=== PATIENT | male | born 1965 | race Caucasian/White ===

== ENCOUNTER 2021-01-03 14:42 | Inpatient (IN) | payer MEDICAID ==
[~2021-01-03] VITALS: Ht 177.8 cm; Wt 88.6 kg
[2021-01-03 17:30] LABS: BASOPHILS % 0.9 % (0.0-2.0); EOSINOPHILS % 3.7 % (0.0-5.0); HEMATOCRIT. 25.6 % (42.0-52.0); HEMOGLOBIN. 8.9 g/dL (14.0-18.0); LYMPHOCYTES % 21.9 % (20.0-50.0); MEAN CORPUSCULAR VOLUME 83.1 fL (80.0-94.0); MEAN PLATELET VOLUME 8.3 fl (7.4-10.4); MONOCYTES % 5.8 % (2.0-8.0); NEUTROPHILS % 67.7 % (40.0-76.0); PLATELET 267 x1000/uL (130-400); RED BLOOD CELL COUNT 3.08 mill/uL (4.7-6.1); RED CELL DISTRIBUTION WIDTH 13.9 % (11.6-14.6)
[2021-01-03 17:35] LABS: CHLORIDE 115 mEq/L (98-107)
[2021-01-03 17:38] LABS: PARTIAL THROMBOPLASTIN TIME 29.8 sec (23.4-31.0); PROTHROMBIN TIME 10.7 sec (9.6-11.0)
[2021-01-03] MEDS ORDERED: AZITHROMYCIN 500 MG in DEXT 5% WATER 250 ML IV ONE (19:15)
[2021-01-03] MEDS ORDERED: CEFTRIAXONE 1 G PREMIX 50 ML IV ONE (19:15)
[2021-01-03] MEDS ORDERED: DEXAMETHASONE 10 MG/ML VIAL IV ONE (19:15)
[2021-01-03] MEDS ORDERED: ASPIRIN 81MG TABLET PO ONE (19:15)
[2021-01-03 20:56] LABS: CLARITY URINE CLEAR (CLEAR); COLOR URINE YELLOW (YELLOW); KETONES URINE NEGATIVE (NEGATIVE); LEUKOCYTE ESTERASE URINE NEGATIVE (NEGATIVE); NITRITE URINE NEGATIVE (NEGATIVE); OCCULT BLOOD URINE TRACE (NEGATIVE); PROTEIN URINE 4+ (NEGATIVE); SPECIFIC GRAVITY URINE 1.014 (1.005-1.030); UROBILINOGEN URINE 0.2 E.U./dL (0.2-1.0)
[2021-01-04] VITALS: BP 169/81
[2021-01-04] MEDS ORDERED: FURO80TA3 PO (01:11)
[2021-01-04] MEDS ORDERED: GLIP10TA10 PO (01:11)
[2021-01-04] MEDS ORDERED: METF-874 PO (01:11)
[2021-01-04] MEDS ORDERED: CLONIDINE 0.1MG TABLET PO PRN (02:45)
[2021-01-04] MEDS ORDERED: ACETAMINOPHEN 325MG TABLET PO PRN (02:45)
[2021-01-04] MEDS ORDERED: DEXTROSE 50% WATER 50ML SYRINGE IV PRN (02:45)
[2021-01-04] MEDS ORDERED: *PATIENT'S OWN MEDICATION STORAGE XX SCH (03:15)
[2021-01-04 04:00] VITALS: BP 141/74
[2021-01-04] MEDS ORDERED: BLOOD SUGAR DIAGNOSTIC STRIP TEST SCH (07:40)
[2021-01-04 08:00] VITALS: BP 163/76
[2021-01-04] MEDS ORDERED: INSULIN LISPRO 100 UNITS/ML SUBCUT SCH (08:10)
[2021-01-04] MEDS: ENOXAPARIN 30MG/0.3ML SYR SUBCUT SCH ×2 (08:31→20:58)
[2021-01-04] MEDS ORDERED: FUROSEMIDE 40MG/4ML VIAL IVP SCH (08:36)
[2021-01-04] MEDS ORDERED: ENOXAPARIN 30MG/0.3ML SYR SUBCUT SCH (09:00)
[2021-01-04 09:31] LABS: BASOPHILS % 0.3 % (0.0-2.0); HEMATOCRIT. 29.2 % (42.0-52.0); HEMOGLOBIN. 10.1 g/dL (14.0-18.0); LYMPHOCYTES % 12.2 % (20.0-50.0); MEAN CORPUSCULAR HEMOGLOBIN 29.2 pg (28.0-32.0); MEAN CORPUSCULAR VOLUME 84.4 fL (80.0-94.0); MEAN PLATELET VOLUME 8.1 fl (7.4-10.4); MONOCYTES % 1.9 % (2.0-8.0); NEUTROPHILS % 85.6 % (40.0-76.0); PLATELET 270 x1000/uL (130-400); RED BLOOD CELL COUNT 3.46 mill/uL (4.7-6.1)
[2021-01-04] MEDS: CARVEDILOL 3.125 MG TABLET PO SCH ×2 (09:33→20:58)
[2021-01-04 12:00] VITALS: BP 139/70
[2021-01-04 12:04] LABS: *BARBITURATES SCREEN URINE NEGATIVE (NEGATIVE); *BENZODIAZEPINES SCREEN URINE NEGATIVE (NEGATIVE)
[2021-01-04 12:05] LABS: *COCAINE SCREEN URINE NEGATIVE (NEGATIVE); CANNABINOID URINE SCREEN NEGATIVE (NEGATIVE); METHADONE URINE SCREEN NEGATIVE (NEGATIVE); OPIATES URINE SCREEN NEGATIVE (NEGATIVE); PHENCYCLIDINE URINE SCREEN NEGATIVE (NEGATIVE)
[2021-01-04 12:07] LABS: *AMPHETAMINES SCREEN URINE NEGATIVE (NEGATIVE)
[2021-01-04] MEDS ORDERED: LIDOCAINE HCL 1% 20ML VIAL (Pyxis) INJ ONE (13:28)
[2021-01-04] MEDS: HYDRALAZINE HCL 25MG TABLET PO SCH ×2 (14:00→21:37)
[2021-01-04 16:00] VITALS: BP 159/86
[2021-01-04] MEDS: BLOOD SUGAR DIAGNOSTIC STRIP TEST SCH ×2 (17:32→20:58)
[2021-01-04] MEDS: INSULIN LISPRO 100 UNITS/ML SUBCUT SCH ×2 (17:39→21:00)
[2021-01-04] MEDS: FUROSEMIDE 40MG/4ML VIAL IVP SCH (17:39)
[2021-01-04 20:00] VITALS: BP 105/81
[2021-01-04] MEDS: ATORVASTATIN CALCIUM 40MG TABLET PO SCH (20:58)
[2021-01-05] VITALS (10 sets, daily range): BP systolic 140–167; BP diastolic 65–96
[2021-01-05] MEDS: FUROSEMIDE 40MG/4ML VIAL IVP SCH ×2 (05:48→17:29)
[2021-01-05] MEDS: HYDRALAZINE HCL 25MG TABLET PO SCH ×4 (05:49→21:07)
[2021-01-05] MEDS: BLOOD SUGAR DIAGNOSTIC STRIP TEST SCH ×4 (06:01→21:14)
[2021-01-05] MEDS: INSULIN LISPRO 100 UNITS/ML SUBCUT SCH ×4 (07:20→21:15)
[2021-01-05] MEDS: CARVEDILOL 3.125 MG TABLET PO SCH (09:00)
[2021-01-05] MEDS: ENOXAPARIN 30MG/0.3ML SYR SUBCUT SCH ×2 (09:12→21:07)
[2021-01-05] MEDS: ATORVASTATIN CALCIUM 40MG TABLET PO SCH (21:07)
[2021-01-06] VITALS (12 sets, daily range): BP systolic 130–182; BP diastolic 64–83
[2021-01-06] MEDS: BLOOD SUGAR DIAGNOSTIC STRIP TEST SCH ×4 (06:04→21:21)
[2021-01-06] MEDS: HYDRALAZINE HCL 25MG TABLET PO SCH ×3 (06:06→21:55)
[2021-01-06] MEDS: FUROSEMIDE 40MG/4ML VIAL IVP SCH ×2 (06:06→17:31)
[2021-01-06 06:55] LABS: BASOPHILS % 0.9 % (0.0-2.0); HEMATOCRIT. 24.8 % (42.0-52.0); HEMOGLOBIN. 8.5 g/dL (14.0-18.0); LYMPHOCYTES % 35.2 % (20.0-50.0); MEAN CORPUSCULAR HEMOGLOBIN 28.6 pg (28.0-32.0); MEAN CORPUSCULAR VOLUME 83.6 fL (80.0-94.0); MEAN PLATELET VOLUME 8.4 fl (7.4-10.4); MONOCYTES % 6.9 % (2.0-8.0); PLATELET 231 x1000/uL (130-400); RED BLOOD CELL COUNT 2.97 mill/uL (4.7-6.1); RED CELL DISTRIBUTION WIDTH 13.8 % (11.6-14.6)
[2021-01-06] MEDS: INSULIN LISPRO 100 UNITS/ML SUBCUT SCH ×4 (07:20→21:26)
[2021-01-06] MEDS: ENOXAPARIN 30MG/0.3ML SYR SUBCUT SCH ×2 (08:56→21:26)
[2021-01-06] MEDS ORDERED: METHYLPREDNISOLONE SOD SUCC 125 MG/2 ML VIAL IV NR (11:45)
[2021-01-06 12:50] LABS: TOTAL IRON BINDING CAPACITY 218 ug/dL (250-450)
[2021-01-06] MEDS: LOSARTAN POTASSIUM 50 MG TABLET PO SCH (12:50)
[2021-01-06 13:06] LABS: ANTI-DNA DOUBLE STRANDED QUANT 3 IU/mL (0-9); ANTI-NUCLEAR ANTIBODIES DIRECT Positive (Negative)
[2021-01-06] MEDS: ATORVASTATIN CALCIUM 40MG TABLET PO SCH (21:25)
[2021-01-06] MEDS: LISINOPRIL 20MG TABLET PO SCH (21:25)
[2021-01-07] VITALS (10 sets, daily range): BP systolic 115–168; BP diastolic 49–86
[2021-01-07] MEDS: FUROSEMIDE 40MG/4ML VIAL IVP SCH ×2 (06:15→17:52)
[2021-01-07] MEDS: HYDRALAZINE HCL 25MG TABLET PO SCH ×3 (06:15→21:21)
[2021-01-07] MEDS: BLOOD SUGAR DIAGNOSTIC STRIP TEST SCH ×4 (06:28→20:40)
[2021-01-07] MEDS: LISINOPRIL 20MG TABLET PO SCH ×2 (08:40→20:40)
[2021-01-07] MEDS: ENOXAPARIN 30MG/0.3ML SYR SUBCUT SCH (08:40)
[2021-01-07] MEDS: LOSARTAN POTASSIUM 50 MG TABLET PO SCH (08:40)
[2021-01-07] MEDS: INSULIN LISPRO 100 UNITS/ML SUBCUT SCH ×4 (08:51→20:39)
[2021-01-07] MEDS: ATORVASTATIN CALCIUM 40MG TABLET PO SCH (20:40)
[2021-01-08] VITALS (13 sets, daily range): BP systolic 99–137; BP diastolic 59–79
[2021-01-08] MEDS: HYDRALAZINE HCL 25MG TABLET PO SCH ×3 (05:57→22:14)
[2021-01-08] MEDS: FUROSEMIDE 40MG/4ML VIAL IVP SCH (05:58)
[2021-01-08] MEDS: BLOOD SUGAR DIAGNOSTIC STRIP TEST SCH ×4 (05:58→21:10)
[2021-01-08 07:14] LABS: INR 1.1; PROTHROMBIN TIME 11.7 sec (9.6-11.0)
[2021-01-08] MEDS: INSULIN LISPRO 100 UNITS/ML SUBCUT SCH ×4 (07:20→21:14)
[2021-01-08 07:21] LABS: BASOPHILS % 0.8 % (0.0-2.0); EOSINOPHILS % 0.8 % (0.0-5.0); HEMATOCRIT. 29.2 % (42.0-52.0); HEMOGLOBIN. 9.5 g/dL (14.0-18.0); LYMPHOCYTES % 26.6 % (20.0-50.0); MEAN CORPUSCULAR HEMOGLOBIN 27.5 pg (28.0-32.0); MEAN CORPUSCULAR VOLUME 84.4 fL (80.0-94.0); MONOCYTES % 7.2 % (2.0-8.0); NEUTROPHILS % 64.6 % (40.0-76.0); PLATELET 275 x1000/uL (130-400); RED BLOOD CELL COUNT 3.46 mill/uL (4.7-6.1)
[2021-01-08] MEDS: LISINOPRIL 20MG TABLET PO SCH ×2 (09:00→21:15)
[2021-01-08] MEDS: LOSARTAN POTASSIUM 50 MG TABLET PO SCH (09:00)
[2021-01-08] MEDS ORDERED: FUROSEMIDE 40MG/4ML VIAL IVP SCH (18:00)
[2021-01-08] MEDS: ATORVASTATIN CALCIUM 40MG TABLET PO SCH (21:15)
[2021-01-09] VITALS (20 sets, daily range): BP systolic 100–163; BP diastolic 57–89
[2021-01-09] MEDS: HYDRALAZINE HCL 25MG TABLET PO SCH ×2 (06:14→14:00)
[2021-01-09] MEDS: BLOOD SUGAR DIAGNOSTIC STRIP TEST SCH ×2 (06:19→12:17)
[2021-01-09] MEDS: INSULIN LISPRO 100 UNITS/ML SUBCUT SCH ×2 (07:14→12:17)
[2021-01-09 07:18] LABS: BASOPHILS % 0.7 % (0.0-2.0); EOSINOPHILS % 1.1 % (0.0-5.0); HEMATOCRIT. 29.2 % (42.0-52.0); LYMPHOCYTES % 36.5 % (20.0-50.0); MEAN CORPUSCULAR HEMOGLOBIN 28.4 pg (28.0-32.0); MEAN CORPUSCULAR VOLUME 83.1 fL (80.0-94.0); MEAN PLATELET VOLUME 8.6 fl (7.4-10.4); MONOCYTES % 7.8 % (2.0-8.0); NEUTROPHILS % 53.9 % (40.0-76.0); PLATELET 250 x1000/uL (130-400); RED BLOOD CELL COUNT 3.51 mill/uL (4.7-6.1); RED CELL DISTRIBUTION WIDTH 13.7 % (11.6-14.6)
[2021-01-09] MEDS: LOSARTAN POTASSIUM 50 MG TABLET PO SCH ×2 (09:00→12:20)
[2021-01-09] MEDS ORDERED: POTASSIUM CHLORIDE 20MEQ TABLET SR PO SCH (09:30)
[2021-01-09] MEDS ORDERED: FENTANYL CITRATE/PF 50MCG/ML 2ML VIAL ONE (10:47)
[2021-01-09] MEDS ORDERED: SODIUM BICARBONATE 4% (2.4MEQ) 5ML VIAL IV ONE (10:47)
[2021-01-09] MEDS ORDERED: LIDOCAINE HCL 1% 20ML VIAL (Pyxis) INJ ONE (10:47)
[2021-01-09] MEDS ORDERED: FENTANYL CITRATE/PF 50MCG/ML 2ML VIAL IV SCH (11:15)
[2021-01-09] MEDS: ENOXAPARIN 30MG/0.3ML SYR SUBCUT SCH (12:19)
[2021-01-09 14:31] LABS: HEMATOCRIT 32.3 % (42.0-52.0); HEMOGLOBIN 11.9 g/dL (14.0-18.0)
[2021-01-10 13:10] LABS: ANTI-MYELOPEROXIDASE AB < 9.0 U/mL (0.0-9.0); ANTI-PROTEINASE 3 ABS < 3.5 U/mL (0.0-3.5); ATYPICAL P-ANCA <1:20 titer (Neg:<1:20); CYTOPLASMIC C-ANCA <1:20 titer (Neg:<1:20); PERINUCLEAR P-ANCA <1:20 titer (Neg:<1:20)
== END 2021-01-09 16:05 | disposition home or self-care (01) | DRG 194 ==
LOC: ER 14:42 → 7WST 20:18 → ENRESERV 21:00 → 3WST 01-04 22:04
PROVIDERS: ADMIT Internal Medicine Nephrology; ATTEND Internal Medicine Nephrology
PROC: 5A1D70Z Performance of Urinary Filtration, Intermittent, Less than 6 Hours Per Day (ICD-10-PCS; principal; 2021-01-04)
PROC: 05HY33Z Insertion of Infusion Device into Upper Vein, Percutaneous Approach (ICD-10-PCS; 2021-01-04)
PROC: B54MZZA Ultrasonography of Right Upper Extremity Veins, Guidance (ICD-10-PCS; 2021-01-04)
PROC: 5A1D70Z Performance of Urinary Filtration, Intermittent, Less than 6 Hours Per Day (ICD-10-PCS; 2021-01-05)
PROC: 5A1D70Z Performance of Urinary Filtration, Intermittent, Less than 6 Hours Per Day (ICD-10-PCS; 2021-01-06)
PROC: 5A1D70Z Performance of Urinary Filtration, Intermittent, Less than 6 Hours Per Day (ICD-10-PCS; 2021-01-07)
PROC: 5A1D70Z Performance of Urinary Filtration, Intermittent, Less than 6 Hours Per Day (ICD-10-PCS; 2021-01-09)
PROC: 0TB03ZX Excision of Right Kidney, Percutaneous Approach, Diagnostic (ICD-10-PCS; 2021-01-09)
DX: I13.0 Hypertensive heart and chronic kidney disease with heart failure and stage 1 through stage 4 chronic kidney disease, or unspecified chronic kidney disease (principal); E43 Unspecified severe protein-calorie malnutrition; N17.9 Acute kidney failure, unspecified; E11.22 Type 2 diabetes mellitus with diabetic chronic kidney disease; I50.33 Acute on chronic diastolic (congestive) heart failure; E87.8 Other disorders of electrolyte and fluid balance, not elsewhere classified; N04.9 Nephrotic syndrome with unspecified morphologic changes; N18.9 Chronic kidney disease, unspecified; E78.5 Hyperlipidemia, unspecified; E66.9 Obesity, unspecified; D64.9 Anemia, unspecified; E78.00 Pure hypercholesterolemia, unspecified; E87.6 Hypokalemia; Z20.822 Contact with and (suspected) exposure to COVID-19; Z68.28 Body mass index [BMI] 28.0-28.9, adult; Z79.899 Other long term (current) drug therapy
CPT/HCPCS: 36415; 36556; 71045; 76937; 76942; 80048; 80053; 80061; 80305; 81003; 82570; 82962; 83036; 83520; 83540; 83550; 83605; 83735; 83880; 84156; 84443; 84484; 85014; 85018; 85025; 86038; 86160; 86225; 86256; 86431; 86850; 86900; 88305; 88346; 88348; 93005; 93306; 93970; 97162; 99285; C1752; J0456; J0696; J1100; J1650; J1815; J1940; J2930; J3010; J3490; J7060; U0003; U0005

== ENCOUNTER 2021-08-23 12:45 | Inpatient (IN) | payer MEDICAID ==
[~2021-08-23] VITALS: Ht 177.8 cm; Wt 102.1 kg
[~2021-08-23 12:45] MED LIST: FURO80TA3 PO; GLIP10TA10 PO; METF-874 PO
[2021-08-23] MEDS ORDERED: SODIUM CHLORIDE 0.9% 1000ML BAG (SEPSIS BOLUS) IV ONE (13:00)
[2021-08-23] MEDS ORDERED: ASPIRIN 81MG TABLET PO ONE (13:30)
[2021-08-23] MEDS ORDERED: CEFTRIAXONE 1 G PREMIX 50 ML IV ONE (13:30)
[2021-08-23] MEDS ORDERED: AZITHROMYCIN 500MG/250ML 250 ML IV ONE (13:30)
[2021-08-23] MEDS ORDERED: NITROGLYCERIN OINT 1GM/INCH UDPKT TD ONE (13:30)
[2021-08-23] MEDS ORDERED: ACETAMINOPHEN 325MG TABLET PO ONE (13:30)
[2021-08-23] MEDS ORDERED: FUROSEMIDE 40MG/4ML VIAL IV ONE (13:30)
[2021-08-23] MEDS ORDERED: DEXAMETHASONE 10 MG/ML VIAL IV ONE (14:00)
[2021-08-23 14:58] LABS: HEMATOCRIT. 27.7 % (42.0-52.0); MEAN CORPUSCULAR HEMOGLOBIN 26.7 pg (28.0-32.0); MEAN CORPUSCULAR VOLUME 82.4 fL (80.0-94.0); MEAN PLATELET VOLUME 9.4 fl (7.4-10.4); PLATELET 179 x1000/uL (130-400); RED BLOOD CELL COUNT 3.36 mill/uL (4.7-6.1); RED CELL DISTRIBUTION WIDTH 15.7 % (11.6-14.6)
[2021-08-23 15:03] LABS: CHLORIDE 111 mEq/L (98-107)
[2021-08-23 15:09] LABS: BG BASE EXCESS -13.1 mmol/L (-2.0-2.0); BG CARBOXYHEMOGLOBIN 0.3 % (0.5-1.5); BG DEOXYHEMOGLOBIN 0.8 % (0.0-5.0); BG FRACTION INSPIRED OXYGEN 100; BG METHEMOGLOBIN 0.3 % (0.0-1.5); BG OXYGEN SATURATION 99.2 % (92.0-98.5); BG OXYHEMOGLOBIN 98.6 % (94.0-97.0); BG PCO2 20.7 mmHg (35.0-45.0); BG PH 7.342 (7.350-7.450); BG SAMPLE SITE RIGHT RADIAL; BG TOTAL HEMOGLOBIN 8.9 g/dL (12.0-18.0); BG VENT MODE MASK - BIPAP
[2021-08-23] MEDS ORDERED: ALBUTEROL 6.7GM HFA INHALER ORI PRN (17:00)
[2021-08-23 17:08] LABS: PLATELET ESTIMATE NORMAL
[2021-08-23] MEDS ORDERED: PIPERACILLIN/TAZ 3.375G PREMIX 50 ML IV SCH (18:00)
[2021-08-23] MEDS: ENOXAPARIN 40MG/0.4ML SYR SUBCUT SCH (18:25)
[2021-08-23] MEDS ORDERED: VANCOMYCIN 1500MG in DEXTROSE 5% WATER 250ML IV SCH (18:30)
[2021-08-23] MEDS ORDERED: ENOXAPARIN 40MG/0.4ML SYR SUBCUT SCH (22:45)
[2021-08-23] MEDS ORDERED: IPRATROPIUM/ALBUTEROL 0.5-3(2.5)MG/3ML NEB NEB PRN (22:45)
[2021-08-23] MEDS ORDERED: LORAZEPAM 2MG/ML CPJ IV PRN (22:45)
[2021-08-23] MEDS ORDERED: DIPHENHYDRAMINE 50MG/ML VIAL IV PRN (22:45)
[2021-08-23] MEDS ORDERED: MORPHINE SULFATE 2 MG/ML CPJ (NOT FOR IM USE) IV PRN (22:45)
[2021-08-23] MEDS ORDERED: HYDROCODONE/ACETAMINOPHEN 5/325MG TABLET PO PRN (22:45)
[2021-08-23] MEDS ORDERED: ONDANSETRON HCL 4MG/2ML INJ IV PRN (22:45)
[2021-08-23] MEDS ORDERED: NALOXONE HCL 0.4MG/ML VIAL IV PRN (23:30)
[2021-08-24] VITALS (20 sets, daily range): BP systolic 106–181; BP diastolic 0–96
[2021-08-24] MEDS: FUROSEMIDE 40MG/4ML VIAL IV SCH ×3 (00:17→17:14)
[2021-08-24] MEDS: MULTIVITAMINS,THER W-MINERALS TABLET PO SCH ×2 (00:30→08:22)
[2021-08-24 05:49] LABS: BASOPHILS % 0.1 % (0.0-2.0); HEMATOCRIT. 28.6 % (42.0-52.0); HEMOGLOBIN. 9.3 g/dL (14.0-18.0); LYMPHOCYTES % 7.5 % (20.0-50.0); MEAN CORPUSCULAR HEMOGLOBIN 26.9 pg (28.0-32.0); MEAN CORPUSCULAR VOLUME 82.8 fL (80.0-94.0); MEAN PLATELET VOLUME 9.7 fl (7.4-10.4); MONOCYTES % 2.8 % (2.0-8.0); NEUTROPHILS % 89.6 % (40.0-76.0); PLATELET 174 x1000/uL (130-400); RED BLOOD CELL COUNT 3.46 mill/uL (4.7-6.1); RED CELL DISTRIBUTION WIDTH 15.7 % (11.6-14.6)
[2021-08-24] MEDS: BLOOD SUGAR DIAGNOSTIC STRIP TEST SCH ×4 (06:30→21:00)
[2021-08-24] MEDS: INSULIN LISPRO (MEDIUM DOSE) 100 UNITS/ML SUBCUT SCH ×4 (06:53→21:42)
[2021-08-24] MEDS: DEXAMETHASONE 10 MG/ML VIAL IV SCH (08:19)
[2021-08-24] MEDS: THIAMINE HCL 100MG TABLET PO SCH (08:22)
[2021-08-24] MEDS: PIPERACILLIN/TAZOBACTAM 3.375 G in DEXTROSE 5% WATER 50 ML IV SCH ×2 (08:25→20:45)
[2021-08-24 09:23] LABS: BG BASE EXCESS -14.3 mmol/L (-2.0-2.0); BG CARBOXYHEMOGLOBIN 0.3 % (0.5-1.5); BG FRACTION INSPIRED OXYGEN 100; BG OXYHEMOGLOBIN 91.7 % (94.0-97.0); BG PCO2 24.6 mmHg (35.0-45.0); BG PO2 71.1 mmHg (75.0-100.0); BG TOTAL HEMOGLOBIN 10.2 g/dL (12.0-18.0); BG VENT MODE MASK - NRB
[2021-08-24] MEDS ORDERED: LIDOCAINE HCL 1% 20ML VIAL (Pyxis) INJ ONE (12:15)
[2021-08-24] MEDS: NIFEDIPINE XL 60MG TAB PO SCH (13:20)
[2021-08-24] MEDS ORDERED: CEFTRIAXONE 1,000 MG in DEXTROSE 5% WATER 50 ML IV SCH (14:00)
[2021-08-24] MEDS: AZITHROMYCIN 500 MG in DEXT 5% WATER 250 ML IV SCH (14:09)
[2021-08-24] MEDS ORDERED: AZITHROMYCIN 500 MG in DEXT 5% WATER 250 ML IV SCH (15:00)
[2021-08-24 15:42] LABS: INR 1.1; PARTIAL THROMBOPLASTIN TIME 48.3 sec (23.4-31.0); PROTHROMBIN TIME 11.8 sec (9.6-11.0)
[2021-08-24] MEDS: ENOXAPARIN 40MG/0.4ML SYR SUBCUT SCH (17:15)
[2021-08-24] MEDS ORDERED: VANCOMYCIN 500MG PREMIX 100 ML IV SCH (18:00)
[2021-08-24] MEDS ORDERED: INFLUENZA VACCINE 05/PF 0.5 ML SYRINGE IM ONE (18:00)
[2021-08-25] VITALS (46 sets, daily range): BP systolic 100–213; BP diastolic 45–88
[2021-08-25] MEDS: BLOOD SUGAR DIAGNOSTIC STRIP TEST SCH ×4 (06:30→20:49)
[2021-08-25] MEDS: INSULIN LISPRO (MEDIUM DOSE) 100 UNITS/ML SUBCUT SCH ×4 (07:00→20:51)
[2021-08-25 07:56] LABS: HEMATOCRIT. 31.9 % (42.0-52.0); HEMOGLOBIN. 10.7 g/dL (14.0-18.0); MEAN CORPUSCULAR HEMOGLOBIN 26.8 pg (28.0-32.0); MEAN CORPUSCULAR VOLUME 80.4 fL (80.0-94.0); MEAN PLATELET VOLUME 9.2 fl (7.4-10.4); PLATELET 218 x1000/uL (130-400); RED BLOOD CELL COUNT 3.97 mill/uL (4.7-6.1); RED CELL DISTRIBUTION WIDTH 15.7 % (11.6-14.6)
[2021-08-25 08:38] LABS: HEPATITIS B SURFACE ANTIGEN NEGATIVE
[2021-08-25] MEDS ORDERED: ENOXAPARIN 80MG/0.8ML SYR SUBCUT SCH (09:00)
[2021-08-25 09:38] LABS: BG BASE EXCESS -7.3 mmol/L (-2.0-2.0); BG CARBOXYHEMOGLOBIN 0.3 % (0.5-1.5); BG DEOXYHEMOGLOBIN 13.4 % (0.0-5.0); BG FRACTION INSPIRED OXYGEN 100; BG HCO3 ACT 17.3 mmol/L (22.0-26.0); BG METHEMOGLOBIN 0.1 % (0.0-1.5); BG OXYGEN SATURATION 86.5 % (92.0-98.5); BG OXYHEMOGLOBIN 86.2 % (94.0-97.0); BG PCO2 31.7 mmHg (35.0-45.0); BG PH 7.354 (7.350-7.450); BG PO2 54.4 mmHg (75.0-100.0); BG SAMPLE SITE RIGHT BRACHIAL; BG TOTAL HEMOGLOBIN 10.8 g/dL (12.0-18.0); BG TOTAL RESPIRATORY RATE 48 b/min; BG VENT MODE MASK - BIPAP
[2021-08-25] MEDS: ASPIRIN 81MG TABLET PO SCH (10:50)
[2021-08-25] MEDS: MULTIVITAMINS,THER W-MINERALS TABLET PO SCH (10:50)
[2021-08-25] MEDS: DEXAMETHASONE 10 MG/ML VIAL IV SCH (10:50)
[2021-08-25] MEDS: PIPERACILLIN/TAZOBACTAM 3.375 G in DEXTROSE 5% WATER 50 ML IV SCH ×2 (10:50→20:52)
[2021-08-25] MEDS: THIAMINE HCL 100MG TABLET PO SCH (10:51)
[2021-08-25] MEDS: NIFEDIPINE XL 60MG TAB PO SCH (10:51)
[2021-08-25] MEDS: ENOXAPARIN 100MG/ML SYR SUBCUT SCH (10:51)
[2021-08-25] MEDS: CLONIDINE 0.1MG TABLET PO PRN (11:49)
[2021-08-25 13:57] LABS: PLATELET ESTIMATE NORMAL
[2021-08-25] MEDS: AZITHROMYCIN 500 MG in DEXT 5% WATER 250 ML IV SCH (14:57)
[2021-08-26] VITALS (57 sets, daily range): BP systolic 62–173; BP diastolic 37–128
[2021-08-26] MEDS: BLOOD SUGAR DIAGNOSTIC STRIP TEST SCH ×4 (06:33→21:29)
[2021-08-26] MEDS: INSULIN LISPRO (MEDIUM DOSE) 100 UNITS/ML SUBCUT SCH ×4 (06:33→21:00)
[2021-08-26] MEDS: NIFEDIPINE XL 60MG TAB PO SCH (09:00)
[2021-08-26] MEDS: PIPERACILLIN/TAZOBACTAM 3.375 G in DEXTROSE 5% WATER 50 ML IV SCH ×2 (09:57→21:29)
[2021-08-26] MEDS: MULTIVITAMINS,THER W-MINERALS TABLET PO SCH (09:58)
[2021-08-26] MEDS: THIAMINE HCL 100MG TABLET PO SCH (09:58)
[2021-08-26] MEDS: DEXAMETHASONE 10 MG/ML VIAL IV SCH (09:58)
[2021-08-26] MEDS: ASPIRIN 81MG TABLET PO SCH (10:00)
[2021-08-26] MEDS: ENOXAPARIN 100MG/ML SYR SUBCUT SCH (10:00)
[2021-08-26] MEDS: AZITHROMYCIN 500 MG in DEXT 5% WATER 250 ML IV SCH (15:21)
[2021-08-27] VITALS (90 sets, daily range): BP systolic 114–165; BP diastolic 43–89
[2021-08-27 05:45] LABS: HEMATOCRIT. 25.8 % (42.0-52.0); HEMOGLOBIN. 8.9 g/dL (14.0-18.0); MEAN CORPUSCULAR HEMOGLOBIN 27.4 pg (28.0-32.0); MEAN CORPUSCULAR VOLUME 79.6 fL (80.0-94.0); MEAN PLATELET VOLUME 9.1 fl (7.4-10.4); PLATELET 168 x1000/uL (130-400); RED BLOOD CELL COUNT 3.24 mill/uL (4.7-6.1); RED CELL DISTRIBUTION WIDTH 16.2 % (11.6-14.6)
[2021-08-27] MEDS: BLOOD SUGAR DIAGNOSTIC STRIP TEST SCH ×4 (06:13→21:23)
[2021-08-27] MEDS: INSULIN LISPRO (MEDIUM DOSE) 100 UNITS/ML SUBCUT SCH ×4 (06:26→20:57)
[2021-08-27 09:05] LABS: PLATELET ESTIMATE NORMAL
[2021-08-27] MEDS: NIFEDIPINE XL 60MG TAB PO SCH (10:04)
[2021-08-27] MEDS: THIAMINE HCL 100MG TABLET PO SCH (10:04)
[2021-08-27] MEDS: ENOXAPARIN 100MG/ML SYR SUBCUT SCH (10:04)
[2021-08-27] MEDS: DEXAMETHASONE 10 MG/ML VIAL IV SCH (10:04)
[2021-08-27] MEDS: PIPERACILLIN/TAZOBACTAM 3.375 G in DEXTROSE 5% WATER 50 ML IV SCH ×2 (10:04→20:56)
[2021-08-27] MEDS: ASPIRIN 81MG TABLET PO SCH (10:05)
[2021-08-27] MEDS: MULTIVITAMINS,THER W-MINERALS TABLET PO SCH (10:05)
[2021-08-27] MEDS: AZITHROMYCIN 500 MG in DEXT 5% WATER 250 ML IV SCH (17:42)
[2021-08-28] VITALS (40 sets, daily range): BP systolic 138–191; BP diastolic 62–98
[2021-08-28 06:19] LABS: HEMATOCRIT. 26.1 % (42.0-52.0); HEMOGLOBIN. 8.8 g/dL (14.0-18.0); MEAN CORPUSCULAR HEMOGLOBIN 27.1 pg (28.0-32.0); MEAN CORPUSCULAR VOLUME 79.9 fL (80.0-94.0); MEAN PLATELET VOLUME 9.6 fl (7.4-10.4); PLATELET 204 x1000/uL (130-400); RED BLOOD CELL COUNT 3.27 mill/uL (4.7-6.1)
[2021-08-28] MEDS: BLOOD SUGAR DIAGNOSTIC STRIP TEST SCH ×4 (06:20→21:15)
[2021-08-28] MEDS: INSULIN LISPRO (MEDIUM DOSE) 100 UNITS/ML SUBCUT SCH ×4 (06:20→21:00)
[2021-08-28] MEDS: ASPIRIN 81MG TABLET PO SCH (09:28)
[2021-08-28] MEDS: PIPERACILLIN/TAZOBACTAM 3.375 G in DEXTROSE 5% WATER 50 ML IV SCH ×2 (09:28→21:15)
[2021-08-28] MEDS: ENOXAPARIN 100MG/ML SYR SUBCUT SCH (09:28)
[2021-08-28] MEDS: MULTIVITAMINS,THER W-MINERALS TABLET PO SCH (09:28)
[2021-08-28] MEDS: DEXAMETHASONE 10 MG/ML VIAL IV SCH (09:28)
[2021-08-28] MEDS: THIAMINE HCL 100MG TABLET PO SCH (09:28)
[2021-08-28 12:32] LABS: PLATELET ESTIMATE NORMAL
[2021-08-28] MEDS: CLONIDINE 0.1MG TABLET PO PRN (12:41)
[2021-08-28 13:04] LABS: BG BASE EXCESS -3.1 mmol/L (-2.0-2.0); BG CARBOXYHEMOGLOBIN 0.3 % (0.5-1.5); BG DEOXYHEMOGLOBIN 1.5 % (0.0-5.0); BG HCO3 ACT 18.8 mmol/L (22.0-26.0); BG METHEMOGLOBIN 0.3 % (0.0-1.5); BG OXYGEN SATURATION 98.5 % (92.0-98.5); BG OXYHEMOGLOBIN 97.9 % (94.0-97.0); BG PCO2 24.4 mmHg (35.0-45.0); BG PH 7.505 (7.350-7.450); BG PO2 251.5 mmHg (75.0-100.0); BG SAMPLE SITE RIGHT RADIAL; BG TOTAL HEMOGLOBIN 10.3 g/dL (12.0-18.0); BG VENT MODE MASK - BIPAP
[2021-08-28] MEDS: METOPROLOL TARTRATE 25MG TABLET PO SCH (22:22)
[2021-08-29] VITALS (35 sets, daily range): BP systolic 161–195; BP diastolic 66–139
[2021-08-29] MEDS: HYDRALAZINE 20MG/ML VIAL IV PRN ×4 (00:08→21:07)
[2021-08-29 05:43] LABS: MEAN CORPUSCULAR HEMOGLOBIN 26.8 pg (28.0-32.0); MEAN CORPUSCULAR VOLUME 80.2 fL (80.0-94.0); MEAN PLATELET VOLUME 8.8 fl (7.4-10.4); PLATELET 192 x1000/uL (130-400); RED BLOOD CELL COUNT 2.99 mill/uL (4.7-6.1); RED CELL DISTRIBUTION WIDTH 15.7 % (11.6-14.6)
[2021-08-29] MEDS: BLOOD SUGAR DIAGNOSTIC STRIP TEST SCH ×4 (06:05→21:04)
[2021-08-29] MEDS: INSULIN LISPRO (MEDIUM DOSE) 100 UNITS/ML SUBCUT SCH ×4 (06:06→21:35)
[2021-08-29 09:57] LABS: BG BASE EXCESS -3.2 mmol/L (-2.0-2.0); BG CARBOXYHEMOGLOBIN 0.3 % (0.5-1.5); BG DEOXYHEMOGLOBIN 13.3 % (0.0-5.0); BG FRACTION INSPIRED OXYGEN 60; BG METHEMOGLOBIN 0.2 % (0.0-1.5); BG OXYGEN SATURATION 86.6 % (92.0-98.5); BG OXYHEMOGLOBIN 86.2 % (94.0-97.0); BG PCO2 28.8 mmHg (35.0-45.0); BG PH 7.459 (7.350-7.450); BG PO2 54.7 mmHg (75.0-100.0); BG SAMPLE SITE RIGHT RADIAL; BG VENT MODE MASK - SIMPLE
[2021-08-29] MEDS: ENOXAPARIN 40MG/0.4ML SYR SUBCUT SCH (10:13)
[2021-08-29] MEDS: THIAMINE HCL 100MG TABLET PO SCH (10:14)
[2021-08-29] MEDS: DEXAMETHASONE 10 MG/ML VIAL IV SCH (10:14)
[2021-08-29] MEDS: MULTIVITAMINS,THER W-MINERALS TABLET PO SCH (10:15)
[2021-08-29] MEDS ORDERED: METOPROLOL TARTRATE 100MG TABLET PO SCH (10:15)
[2021-08-29] MEDS: METOPROLOL TARTRATE 25MG TABLET PO SCH ×2 (10:15→21:06)
[2021-08-29] MEDS: ASPIRIN 81MG TABLET PO SCH (10:15)
[2021-08-29 11:58] LABS: PLATELET ESTIMATE NORMAL
[2021-08-29] MEDS: CLONIDINE 0.1MG TABLET PO PRN (22:42)
[2021-08-30] VITALS (25 sets, daily range): BP systolic 145–204; BP diastolic 67–102
[2021-08-30] MEDS: HYDRALAZINE 20MG/ML VIAL IV PRN (03:45)
[2021-08-30] MEDS: CLONIDINE 0.1MG TABLET PO PRN (05:01)
[2021-08-30 06:24] LABS: HEMATOCRIT. 26.1 % (42.0-52.0); HEMOGLOBIN. 8.9 g/dL (14.0-18.0); MEAN CORPUSCULAR HEMOGLOBIN 27.8 pg (28.0-32.0); MEAN PLATELET VOLUME 8.8 fl (7.4-10.4); PLATELET 238 x1000/uL (130-400); RED BLOOD CELL COUNT 3.22 mill/uL (4.7-6.1); RED CELL DISTRIBUTION WIDTH 15.2 % (11.6-14.6)
[2021-08-30] MEDS: BLOOD SUGAR DIAGNOSTIC STRIP TEST SCH ×4 (06:30→21:17)
[2021-08-30] MEDS: INSULIN LISPRO (MEDIUM DOSE) 100 UNITS/ML SUBCUT SCH ×4 (07:00→21:12)
[2021-08-30] MEDS: ENOXAPARIN 40MG/0.4ML SYR SUBCUT SCH (09:10)
[2021-08-30] MEDS: THIAMINE HCL 100MG TABLET PO SCH (09:10)
[2021-08-30] MEDS: DEXAMETHASONE 10 MG/ML VIAL IV SCH (09:11)
[2021-08-30] MEDS: METOPROLOL TARTRATE 25MG TABLET PO SCH (09:11)
[2021-08-30] MEDS: ASPIRIN 81MG TABLET PO SCH (09:11)
[2021-08-30] MEDS: MULTIVITAMINS,THER W-MINERALS TABLET PO SCH (09:11)
[2021-08-30] MEDS ORDERED: HYDRALAZINE HCL 100MG TABLET PO SCH (09:15)
[2021-08-30] MEDS ORDERED: MINOXIDIL 2.5MG TABLET PO NR (09:30)
[2021-08-30 10:40] LABS: BG BASE EXCESS -4.1 mmol/L (-2.0-2.0); BG CARBOXYHEMOGLOBIN 0.3 % (0.5-1.5); BG DEOXYHEMOGLOBIN 8.9 % (0.0-5.0); BG FRACTION INSPIRED OXYGEN 85; BG HCO3 ACT 18.6 mmol/L (22.0-26.0); BG METHEMOGLOBIN 0.1 % (0.0-1.5); BG OXYGEN SATURATION 91.1 % (92.0-98.5); BG OXYHEMOGLOBIN 90.7 % (94.0-97.0); BG PCO2 26.2 mmHg (35.0-45.0); BG PO2 63.2 mmHg (75.0-100.0); BG SAMPLE SITE RIGHT RADIAL; BG VENT MODE HIGH FLOW
[2021-08-30 11:25] LABS: ATYPICAL LYMPHOCYTES 1; PLATELET ESTIMATE NORMAL
[2021-08-30] MEDS: HYDRALAZINE HCL 100MG TABLET PO SCH ×2 (18:13→21:10)
[2021-08-30] MEDS ORDERED: METOPROLOL TARTRATE 100MG TABLET PO SCH (21:00)
[2021-08-30] MEDS: MINOXIDIL 2.5MG TABLET PO SCH (21:11)
[2021-08-31] VITALS: BP 141/53
[2021-08-31] MEDS: KCL 20MEQ/100ML PREMIX 100 ML IV SCH ×2 (01:37→02:00)
[2021-08-31 04:00] VITALS: BP 115/54
[2021-08-31] MEDS: HYDRALAZINE HCL 100MG TABLET PO SCH ×3 (05:59→21:39)
[2021-08-31 07:46] VITALS: BP 135/57
[2021-08-31] MEDS: ASPIRIN 81MG TABLET PO SCH (08:27)
[2021-08-31] MEDS: MULTIVITAMINS,THER W-MINERALS TABLET PO SCH (08:27)
[2021-08-31] MEDS: THIAMINE HCL 100MG TABLET PO SCH (08:27)
[2021-08-31] MEDS: INSULIN LISPRO (MEDIUM DOSE) 100 UNITS/ML SUBCUT SCH ×4 (08:28→21:43)
[2021-08-31] MEDS: ENOXAPARIN 40MG/0.4ML SYR SUBCUT SCH (08:28)
[2021-08-31] MEDS: BLOOD SUGAR DIAGNOSTIC STRIP TEST SCH ×4 (08:28→21:35)
[2021-08-31] MEDS: DEXAMETHASONE 10 MG/ML VIAL IV SCH (08:28)
[2021-08-31] MEDS: MINOXIDIL 2.5MG TABLET PO SCH ×2 (08:29→21:40)
[2021-08-31 12:00] VITALS: BP 131/55
[2021-08-31 16:00] VITALS: BP 123/49
[2021-08-31 20:22] VITALS: BP 126/56
[2021-09-01 00:33] VITALS: BP 119/75
[2021-09-01 04:40] VITALS: BP 138/85
[2021-09-01] MEDS: HYDRALAZINE HCL 100MG TABLET PO SCH ×3 (06:00→21:13)
[2021-09-01] MEDS: BLOOD SUGAR DIAGNOSTIC STRIP TEST SCH ×4 (07:02→21:04)
[2021-09-01 08:00] VITALS: BP 124/64
[2021-09-01] MEDS: ASPIRIN 81MG TABLET PO SCH (08:35)
[2021-09-01] MEDS: ENOXAPARIN 40MG/0.4ML SYR SUBCUT SCH (08:35)
[2021-09-01] MEDS: DEXAMETHASONE 10 MG/ML VIAL IV SCH (08:35)
[2021-09-01] MEDS: MULTIVITAMINS,THER W-MINERALS TABLET PO SCH (08:35)
[2021-09-01] MEDS: THIAMINE HCL 100MG TABLET PO SCH (08:35)
[2021-09-01] MEDS: MINOXIDIL 2.5MG TABLET PO SCH ×2 (08:35→21:12)
[2021-09-01] MEDS: INSULIN LISPRO (MEDIUM DOSE) 100 UNITS/ML SUBCUT SCH ×5 (08:36→21:19)
[2021-09-01 12:00] VITALS: BP 121/59
[2021-09-01 16:00] VITALS: BP 127/57
[2021-09-01 17:47] LABS: HEMATOCRIT. 22.8 % (42.0-52.0); HEMOGLOBIN. 7.4 g/dL (14.0-18.0); MEAN CORPUSCULAR HEMOGLOBIN 26.1 pg (28.0-32.0); MEAN CORPUSCULAR VOLUME 80.6 fL (80.0-94.0); MEAN PLATELET VOLUME 8.9 fl (7.4-10.4); PLATELET 171 x1000/uL (130-400); RED BLOOD CELL COUNT 2.83 mill/uL (4.7-6.1); RED CELL DISTRIBUTION WIDTH 15.3 % (11.6-14.6)
[2021-09-01 20:00] VITALS: BP 131/60
[2021-09-01 22:23] LABS: PHOSPHORUS 4.1 mg/dL (2.5-4.9)
[2021-09-02] VITALS: BP 137/57
[2021-09-02] MEDS: HYDRALAZINE HCL 100MG TABLET PO SCH ×3 (05:41→20:22)
[2021-09-02 08:00] VITALS: BP 117/49
[2021-09-02] MEDS: BLOOD SUGAR DIAGNOSTIC STRIP TEST SCH ×4 (08:38→20:15)
[2021-09-02 08:40] LABS: MEAN CORPUSCULAR HEMOGLOBIN 27.5 pg (28.0-32.0); MEAN CORPUSCULAR VOLUME 80.5 fL (80.0-94.0); MEAN PLATELET VOLUME 9.3 fl (7.4-10.4); PLATELET 215 x1000/uL (130-400); RED CELL DISTRIBUTION WIDTH 15.4 % (11.6-14.6)
[2021-09-02 08:45] LABS: HEMOGLOBIN. 7.2 g/dL (14.0-18.0)
[2021-09-02] MEDS: DEXAMETHASONE 10 MG/ML VIAL IV SCH (08:49)
[2021-09-02] MEDS: ASPIRIN 81MG TABLET PO SCH (08:49)
[2021-09-02] MEDS: THIAMINE HCL 100MG TABLET PO SCH (08:49)
[2021-09-02] MEDS: MULTIVITAMINS,THER W-MINERALS TABLET PO SCH (08:49)
[2021-09-02] MEDS: INSULIN LISPRO (MEDIUM DOSE) 100 UNITS/ML SUBCUT SCH ×4 (08:50→20:10)
[2021-09-02] MEDS: ENOXAPARIN 40MG/0.4ML SYR SUBCUT SCH (08:51)
[2021-09-02] MEDS: MINOXIDIL 2.5MG TABLET PO SCH ×2 (08:51→20:22)
[2021-09-02] MEDS ORDERED: POTASSIUM CHLORIDE 20MEQ TABLET SR PO NR (10:15)
[2021-09-02 12:00] VITALS: BP 119/56
[2021-09-02] MEDS ORDERED: CALCIUM GLUCONATE 1GM PREMIX 100 ML IV SCH (12:00)
[2021-09-02 15:59] LABS: PLATELET ESTIMATE NORMAL
[2021-09-02 16:00] VITALS: BP 141/62
[2021-09-02] MEDS ORDERED: INSULIN LISPRO 100 UNITS/ML SUBCUT NR (18:15)
[2021-09-02 20:00] VITALS: BP 131/69
[2021-09-02 23:34] LABS: PLATELET ESTIMATE NORMAL
[2021-09-03] VITALS (7 sets, daily range): BP systolic 114–125; BP diastolic 48–68
[2021-09-03] MEDS: HYDRALAZINE HCL 100MG TABLET PO SCH ×3 (05:40→22:07)
[2021-09-03] MEDS: BLOOD SUGAR DIAGNOSTIC STRIP TEST SCH ×4 (07:40→21:00)
[2021-09-03 07:53] LABS: HEMATOCRIT. 21.5 % (42.0-52.0); HEMOGLOBIN. 7.1 g/dL (14.0-18.0); MEAN CORPUSCULAR HEMOGLOBIN 27.1 pg (28.0-32.0); MEAN CORPUSCULAR VOLUME 81.8 fL (80.0-94.0); MEAN PLATELET VOLUME 9.1 fl (7.4-10.4); PLATELET 277 x1000/uL (130-400); RED BLOOD CELL COUNT 2.63 mill/uL (4.7-6.1); RED CELL DISTRIBUTION WIDTH 15.1 % (11.6-14.6)
[2021-09-03] MEDS: DEXAMETHASONE 10 MG/ML VIAL IV SCH (10:00)
[2021-09-03] MEDS: ENOXAPARIN 40MG/0.4ML SYR SUBCUT SCH (10:00)
[2021-09-03] MEDS: MULTIVITAMINS,THER W-MINERALS TABLET PO SCH (10:00)
[2021-09-03] MEDS: ASPIRIN 81MG TABLET PO SCH (10:00)
[2021-09-03] MEDS: THIAMINE HCL 100MG TABLET PO SCH (10:00)
[2021-09-03] MEDS: MINOXIDIL 2.5MG TABLET PO SCH ×2 (10:01→22:07)
[2021-09-03] MEDS ORDERED: CALCIUM GLUCONATE 1,000 MG in DEXT 5% WATER 90 ML IV ONE (10:45)
[2021-09-03] MEDS: INSULIN LISPRO (MEDIUM DOSE) 100 UNITS/ML SUBCUT SCH ×3 (12:18→22:09)
[2021-09-03] MEDS ORDERED: CALCIUM GLUCONATE 1GM PREMIX 50 ML IV SCH (12:30)
[2021-09-03 16:59] LABS: PLATELET ESTIMATE NORMAL
[2021-09-03] MEDS ORDERED: TRAMADOL 50MG TABLET PO PRN (20:00)
[2021-09-03 21:23] LABS: HEMATOCRIT 23.8 % (42.0-52.0); HEMOGLOBIN 7.9 g/dL (14.0-18.0)
[2021-09-03] MEDS: INSULIN GLARGINE UD 100 UNITS/ML SYR SUBCUT SCH (22:10)
[2021-09-04] VITALS: BP 114/50
[2021-09-04 04:00] VITALS: BP 117/51
[2021-09-04] MEDS: BLOOD SUGAR DIAGNOSTIC STRIP TEST SCH ×4 (06:51→21:31)
[2021-09-04] MEDS: HYDRALAZINE HCL 100MG TABLET PO SCH ×3 (06:51→21:29)
[2021-09-04] MEDS: INSULIN LISPRO (MEDIUM DOSE) 100 UNITS/ML SUBCUT SCH ×4 (07:25→21:31)
[2021-09-04 07:56] LABS: HEMATOCRIT. 24.9 % (42.0-52.0); HEMOGLOBIN. 8.3 g/dL (14.0-18.0); MEAN CORPUSCULAR HEMOGLOBIN 27.2 pg (28.0-32.0); MEAN CORPUSCULAR VOLUME 81.3 fL (80.0-94.0); MEAN PLATELET VOLUME 8.8 fl (7.4-10.4); PLATELET 296 x1000/uL (130-400); RED BLOOD CELL COUNT 3.06 mill/uL (4.7-6.1); RED CELL DISTRIBUTION WIDTH 15.2 % (11.6-14.6)
[2021-09-04 08:00] VITALS: BP 123/43
[2021-09-04] MEDS: THIAMINE HCL 100MG TABLET PO SCH (09:26)
[2021-09-04] MEDS: MINOXIDIL 2.5MG TABLET PO SCH ×2 (09:26→21:29)
[2021-09-04] MEDS: MULTIVITAMINS,THER W-MINERALS TABLET PO SCH (09:26)
[2021-09-04] MEDS: DEXAMETHASONE 10 MG/ML VIAL IV SCH (09:27)
[2021-09-04] MEDS: INSULIN GLARGINE UD 100 UNITS/ML SYR SUBCUT SCH ×2 (09:28→21:43)
[2021-09-04 12:00] VITALS: BP 139/55
[2021-09-04] MEDS: LORAZEPAM 0.5MG TABLET PO PRN (12:56)
[2021-09-04 16:00] VITALS: BP 125/53
[2021-09-04 17:22] LABS: PLATELET ESTIMATE NORMAL
[2021-09-04 20:00] VITALS: BP 115/54
[2021-09-04] MEDS: CEFEPIME 1,000 MG in DEXTROSE 5% WATER 50 ML IV SCH (21:29)
[2021-09-05] VITALS: BP 123/61
[2021-09-05 04:00] VITALS: BP 137/60
[2021-09-05] MEDS: HYDRALAZINE HCL 100MG TABLET PO SCH ×3 (06:45→21:16)
[2021-09-05] MEDS: BLOOD SUGAR DIAGNOSTIC STRIP TEST SCH ×4 (06:45→21:08)
[2021-09-05] MEDS: INSULIN LISPRO (MEDIUM DOSE) 100 UNITS/ML SUBCUT SCH ×4 (07:47→21:00)
[2021-09-05 08:00] VITALS: BP 130/56
[2021-09-05] MEDS: MINOXIDIL 2.5MG TABLET PO SCH ×2 (09:22→21:16)
[2021-09-05] MEDS: MULTIVITAMINS,THER W-MINERALS TABLET PO SCH (09:22)
[2021-09-05] MEDS: THIAMINE HCL 100MG TABLET PO SCH (09:22)
[2021-09-05] MEDS: DEXAMETHASONE 10 MG/ML VIAL IV SCH (09:23)
[2021-09-05] MEDS: INSULIN GLARGINE UD 100 UNITS/ML SYR SUBCUT SCH ×2 (10:11→21:23)
[2021-09-05 11:28] LABS: HEMATOCRIT. 25.3 % (42.0-52.0); HEMOGLOBIN. 8.1 g/dL (14.0-18.0); MEAN CORPUSCULAR HEMOGLOBIN 26.2 pg (28.0-32.0); MEAN CORPUSCULAR VOLUME 81.9 fL (80.0-94.0); MEAN PLATELET VOLUME 9.3 fl (7.4-10.4); PLATELET 309 x1000/uL (130-400); RED BLOOD CELL COUNT 3.09 mill/uL (4.7-6.1); RED CELL DISTRIBUTION WIDTH 15.5 % (11.6-14.6)
[2021-09-05 12:00] VITALS: BP 143/58
[2021-09-05 16:00] VITALS: BP 135/50
[2021-09-05 20:00] VITALS: BP 150/69
[2021-09-05] MEDS: IPRATROPIUM/ALBUTEROL 0.5-3(2.5)MG/3ML NEB HHN SCH (21:03)
[2021-09-05 21:37] LABS: PLATELET ESTIMATE NORMAL
[2021-09-06] VITALS (55 sets, daily range): BP systolic 72–181; BP diastolic 40–86
[2021-09-06] MEDS: IPRATROPIUM/ALBUTEROL 0.5-3(2.5)MG/3ML NEB HHN SCH ×7 (00:53→20:22)
[2021-09-06] MEDS: HYDRALAZINE HCL 100MG TABLET PO SCH ×3 (06:33→21:08)
[2021-09-06] MEDS: INSULIN LISPRO (MEDIUM DOSE) 100 UNITS/ML SUBCUT SCH ×4 (07:56→21:00)
[2021-09-06] MEDS: BLOOD SUGAR DIAGNOSTIC STRIP TEST SCH ×4 (07:56→21:07)
[2021-09-06] MEDS: MINOXIDIL 2.5MG TABLET PO SCH ×2 (08:56→21:00)
[2021-09-06] MEDS: THIAMINE HCL 100MG TABLET PO SCH (08:56)
[2021-09-06] MEDS: MULTIVITAMINS,THER W-MINERALS TABLET PO SCH (08:56)
[2021-09-06] MEDS: LORAZEPAM 0.5MG TABLET PO PRN (08:56)
[2021-09-06] MEDS: DEXAMETHASONE 10 MG/ML VIAL IV SCH (08:56)
[2021-09-06] MEDS ORDERED: LORAZEPAM 2MG/ML CPJ IV NR (10:30)
[2021-09-06] MEDS: PROPOFOL 10MG/ML 100ML 100 ML IV PRN ×4 (11:54→22:45)
[2021-09-06] MEDS: PANTOPRAZOLE 40MG DR TABLET PO SCH (12:00)
[2021-09-06] MEDS: INSULIN GLARGINE UD 100 UNITS/ML SYR SUBCUT SCH ×2 (12:11→21:13)
[2021-09-06] MEDS: FENTANYL CITRATE/PF 2,500 MCG in SODIUM CHLORIDE 0.9% 200 ML IV PRN (12:15)
[2021-09-06 12:21] LABS: BG BASE EXCESS -9.3 mmol/L (-2.0-2.0); BG CARBOXYHEMOGLOBIN 0.3 % (0.5-1.5); BG DEOXYHEMOGLOBIN 23.5 % (0.0-5.0); BG HCO3 ACT 18.2 mmol/L (22.0-26.0); BG METHEMOGLOBIN 0.4 % (0.0-1.5); BG OXYGEN SATURATION 76.3 % (92.0-98.5); BG OXYHEMOGLOBIN 75.8 % (94.0-97.0); BG PCO2 47.7 mmHg (35.0-45.0); BG PO2 52.9 mmHg (75.0-100.0); BG SAMPLE SITE RIGHT BRACHIAL; BG VENT MODE VENT- PRVC
[2021-09-06] MEDS: NOREPINEPHRINE 32 MG in DEXT 5% WATER 218 ML IV PRN (12:29)
[2021-09-06 13:57] LABS: BG BASE EXCESS -11.7 mmol/L (-2.0-2.0); BG CARBOXYHEMOGLOBIN 0.3 % (0.5-1.5); BG DEOXYHEMOGLOBIN 4.5 % (0.0-5.0); BG METHEMOGLOBIN 0.5 % (0.0-1.5); BG OXYGEN SATURATION 95.5 % (92.0-98.5); BG OXYHEMOGLOBIN 94.7 % (94.0-97.0); BG PCO2 70.8 mmHg (35.0-45.0); BG PH 7.047 (7.350-7.450); BG PO2 110.6 mmHg (75.0-100.0); BG SAMPLE SITE RIGHT BRACHIAL; BG TOTAL HEMOGLOBIN 10.2 g/dL (12.0-18.0); BG VENT MODE VENT- PRVC
[2021-09-06] MEDS ORDERED: LIDOCAINE HCL 1% 20ML VIAL (Pyxis) INJ ONE (14:06)
[2021-09-06 15:39] LABS: BG CARBOXYHEMOGLOBIN 0.3 % (0.5-1.5); BG DEOXYHEMOGLOBIN 9.9 % (0.0-5.0); BG HCO3 ACT 17.5 mmol/L (22.0-26.0); BG METHEMOGLOBIN 0.3 % (0.0-1.5); BG OXYHEMOGLOBIN 89.5 % (94.0-97.0); BG PCO2 58.4 mmHg (35.0-45.0); BG PH 7.094 (7.350-7.450); BG PO2 80.5 mmHg (75.0-100.0); BG SAMPLE SITE RIGHT BRACHIAL; BG TOTAL HEMOGLOBIN 9.7 g/dL (12.0-18.0); BG VENT MODE VENT- PRVC
[2021-09-06] MEDS ORDERED: SODIUM BICARBONATE 8.4% 1 MEQ/ML 50ML SYR IV NR (15:58)
[2021-09-06] MEDS ORDERED: SODIUM CHLORIDE 0.9% 500 ML IV ONE (16:30)
[2021-09-06] MEDS: CEFEPIME 1,000 MG in DEXTROSE 5% WATER 50 ML IV SCH ×2 (20:31→20:32)
[2021-09-06 20:42] LABS: HEMATOCRIT 25.4 % (42.0-52.0); HEMOGLOBIN 8.3 g/dL (14.0-18.0); MEAN CORPUSCULAR HEMOGLOBIN 26.7 pg (28.0-32.0); MEAN CORPUSCULAR VOLUME 81.3 fL (80.0-94.0); PLATELET 386 x1000/uL (130-400); RED BLOOD CELL COUNT 3.12 mill/uL (4.7-6.1); RED CELL DISTRIBUTION WIDTH 15.7 % (11.6-14.6)
[2021-09-06 21:49] LABS: BG BASE EXCESS -3.3 mmol/L (-2.0-2.0); BG CARBOXYHEMOGLOBIN 0.3 % (0.5-1.5); BG DEOXYHEMOGLOBIN 1.2 % (0.0-5.0); BG FRACTION INSPIRED OXYGEN 100; BG HCO3 ACT 22.6 mmol/L (22.0-26.0); BG METHEMOGLOBIN 0.4 % (0.0-1.5); BG OXYGEN SATURATION 98.8 % (92.0-98.5); BG OXYHEMOGLOBIN 98.1 % (94.0-97.0); BG PH 7.329 (7.350-7.450); BG SAMPLE SITE RIGHT RADIAL; BG TOTAL HEMOGLOBIN 11.1 g/dL (12.0-18.0); BG VENT MODE PRVC/AC
[2021-09-07] VITALS (91 sets, daily range): BP systolic 94–147; BP diastolic 38–78
[2021-09-07] MEDS: IPRATROPIUM/ALBUTEROL 0.5-3(2.5)MG/3ML NEB HHN SCH ×6 (00:21→20:03)
[2021-09-07] MEDS: PROPOFOL 10MG/ML 100ML 100 ML IV PRN ×5 (01:00→22:29)
[2021-09-07] MEDS: FENTANYL CITRATE/PF 2,500 MCG in SODIUM CHLORIDE 0.9% 200 ML IV PRN ×2 (01:01→11:38)
[2021-09-07] MEDS: HYDRALAZINE HCL 100MG TABLET PO SCH ×4 (06:37→22:20)
[2021-09-07 06:46] LABS: HEMATOCRIT. 22.5 % (42.0-52.0); HEMOGLOBIN. 7.3 g/dL (14.0-18.0); MEAN CORPUSCULAR HEMOGLOBIN 26.4 pg (28.0-32.0); MEAN CORPUSCULAR VOLUME 81.3 fL (80.0-94.0); MEAN PLATELET VOLUME 8.1 fl (7.4-10.4); PLATELET 328 x1000/uL (130-400); RED BLOOD CELL COUNT 2.77 mill/uL (4.7-6.1); RED CELL DISTRIBUTION WIDTH 15.5 % (11.6-14.6)
[2021-09-07] MEDS: NOREPINEPHRINE 32 MG in DEXT 5% WATER 218 ML IV PRN (07:02)
[2021-09-07] MEDS: PANTOPRAZOLE 40MG DR TABLET PO SCH (07:50)
[2021-09-07] MEDS: INSULIN LISPRO (MEDIUM DOSE) 100 UNITS/ML SUBCUT SCH ×4 (08:20→21:00)
[2021-09-07] MEDS: BLOOD SUGAR DIAGNOSTIC STRIP TEST SCH ×4 (08:27→21:20)
[2021-09-07] MEDS: DEXAMETHASONE 10 MG/ML VIAL IV SCH (08:30)
[2021-09-07] MEDS: THIAMINE HCL 100MG TABLET PO SCH (08:30)
[2021-09-07] MEDS: MINOXIDIL 2.5MG TABLET PO SCH (08:30)
[2021-09-07] MEDS: MULTIVITAMINS,THER W-MINERALS TABLET PO SCH (08:30)
[2021-09-07 10:42] LABS: BG BASE EXCESS 0.1 mmol/L (-2.0-2.0); BG CARBOXYHEMOGLOBIN 0.3 % (0.5-1.5); BG DEOXYHEMOGLOBIN 1.1 % (0.0-5.0); BG FRACTION INSPIRED OXYGEN 100; BG HCO3 ACT 26.6 mmol/L (22.0-26.0); BG METHEMOGLOBIN 0.4 % (0.0-1.5); BG OXYGEN SATURATION 98.9 % (92.0-98.5); BG OXYHEMOGLOBIN 98.2 % (94.0-97.0); BG PCO2 52.2 mmHg (35.0-45.0); BG PH 7.325 (7.350-7.450); BG SAMPLE SITE RIGHT RADIAL; BG TOTAL HEMOGLOBIN 10.6 g/dL (12.0-18.0); BG VENT MODE PRVC
[2021-09-07] MEDS: INSULIN GLARGINE UD 100 UNITS/ML SYR SUBCUT SCH ×2 (10:45→22:34)
[2021-09-07] MEDS: PANTOPRAZOLE SODIUM 40 MG/VIAL IV SCH (11:37)
[2021-09-07 15:54] LABS: CLARITY URINE TURBID (CLEAR); KETONES URINE TRACE (NEGATIVE); LEUKOCYTE ESTERASE URINE 2+ (NEGATIVE); NITRITE URINE NEGATIVE (NEGATIVE); OCCULT BLOOD URINE 3+ (NEGATIVE); PH URINE 5.5 (4.5-8.0); PROTEIN URINE 4+ (NEGATIVE); SPECIFIC GRAVITY URINE 1.038 (1.005-1.030); UROBILINOGEN URINE 0.2 E.U./dL (0.2-1.0)
[2021-09-07 16:07] LABS: COLOR URINE YELLOW (YELLOW)
[2021-09-07] MEDS: CEFEPIME 1,000 MG in DEXTROSE 5% WATER 50 ML IV SCH (21:20)
[2021-09-07] MEDS: DEXTROSE 50% WATER 50ML SYRINGE IV PRN (21:39)
[2021-09-08] VITALS (95 sets, daily range): BP systolic 64–145; BP diastolic 32–65
[2021-09-08] MEDS: IPRATROPIUM/ALBUTEROL 0.5-3(2.5)MG/3ML NEB HHN SCH ×6 (00:09→20:34)
[2021-09-08 01:04] LABS: PLATELET ESTIMATE NORMAL
[2021-09-08] MEDS: HYDRALAZINE HCL 100MG TABLET PO SCH ×3 (05:42→21:50)
[2021-09-08] MEDS: PROPOFOL 10MG/ML 100ML 100 ML IV PRN ×4 (05:44→20:23)
[2021-09-08 06:28] LABS: HEMATOCRIT. 22.1 % (42.0-52.0); HEMOGLOBIN. 7.1 g/dL (14.0-18.0); MEAN CORPUSCULAR HEMOGLOBIN 26.4 pg (28.0-32.0); MEAN CORPUSCULAR VOLUME 81.7 fL (80.0-94.0); MEAN PLATELET VOLUME 8.3 fl (7.4-10.4); PLATELET 253 x1000/uL (130-400); RED BLOOD CELL COUNT 2.71 mill/uL (4.7-6.1); RED CELL DISTRIBUTION WIDTH 15.5 % (11.6-14.6)
[2021-09-08 07:23] LABS: BG CARBOXYHEMOGLOBIN 0.3 % (0.5-1.5); BG DEOXYHEMOGLOBIN 3.3 % (0.0-5.0); BG HCO3 ACT 26.6 mmol/L (22.0-26.0); BG METHEMOGLOBIN 0.5 % (0.0-1.5); BG OXYGEN SATURATION 96.7 % (92.0-98.5); BG OXYHEMOGLOBIN 95.9 % (94.0-97.0); BG PCO2 48.3 mmHg (35.0-45.0); BG PH 7.359 (7.350-7.450); BG PO2 101.7 mmHg (75.0-100.0); BG SAMPLE SITE RIGHT RADIAL; BG TOTAL HEMOGLOBIN 7.2 g/dL (12.0-18.0); BG VENT MODE VENT- PRVC
[2021-09-08] MEDS: DEXTROSE 50% WATER 50ML SYRINGE IV PRN ×6 (07:50→21:50)
[2021-09-08] MEDS: INSULIN LISPRO (MEDIUM DOSE) 100 UNITS/ML SUBCUT SCH ×4 (08:20→20:56)
[2021-09-08] MEDS: DEXAMETHASONE 10 MG/ML VIAL IV SCH (08:30)
[2021-09-08] MEDS: BLOOD SUGAR DIAGNOSTIC STRIP TEST SCH ×8 (08:31→23:18)
[2021-09-08] MEDS: PANTOPRAZOLE SODIUM 40 MG/VIAL IV SCH (08:31)
[2021-09-08] MEDS: THIAMINE HCL 100MG TABLET PO SCH (08:31)
[2021-09-08] MEDS: MULTIVITAMINS,THER W-MINERALS TABLET PO SCH (08:31)
[2021-09-08] MEDS: INSULIN GLARGINE UD 100 UNITS/ML SYR SUBCUT SCH (10:00)
[2021-09-08] MEDS ORDERED: DEXT 5%/0.45% NACL 1000ML 1,000 ML IV SCH (11:15)
[2021-09-08] MEDS: FENTANYL CITRATE/PF 2,500 MCG in SODIUM CHLORIDE 0.9% 200 ML IV PRN (12:00)
[2021-09-08 13:39] LABS: PLATELET ESTIMATE NORMAL
[2021-09-08] MEDS ORDERED: DEXT 10% WATER 1,000 ML IV SCH (14:00)
[2021-09-08] MEDS: NOREPINEPHRINE 32 MG in DEXT 5% WATER 218 ML IV PRN (16:08)
[2021-09-08] MEDS: DEXT 10% WATER 1,000 ML IV SCH (18:03)
[2021-09-08] MEDS: CEFEPIME 1,000 MG in DEXTROSE 5% WATER 50 ML IV SCH (19:05)
[2021-09-09] VITALS (97 sets, daily range): BP systolic 75–181; BP diastolic 39–73
[2021-09-09] MEDS: IPRATROPIUM/ALBUTEROL 0.5-3(2.5)MG/3ML NEB HHN SCH ×6 (00:55→20:36)
[2021-09-09] MEDS: FENTANYL CITRATE/PF 2,500 MCG in SODIUM CHLORIDE 0.9% 200 ML IV PRN ×2 (03:49→16:05)
[2021-09-09] MEDS: PROPOFOL 10MG/ML 100ML 100 ML IV PRN ×6 (03:54→18:44)
[2021-09-09 05:51] LABS: HEMATOCRIT. 23.3 % (42.0-52.0); HEMOGLOBIN. 7.6 g/dL (14.0-18.0); MEAN CORPUSCULAR HEMOGLOBIN 26.9 pg (28.0-32.0); MEAN CORPUSCULAR VOLUME 82.2 fL (80.0-94.0); MEAN PLATELET VOLUME 8.5 fl (7.4-10.4); PLATELET 188 x1000/uL (130-400); RED BLOOD CELL COUNT 2.84 mill/uL (4.7-6.1); RED CELL DISTRIBUTION WIDTH 15.2 % (11.6-14.6)
[2021-09-09] MEDS: HYDRALAZINE HCL 100MG TABLET PO SCH (06:00)
[2021-09-09] MEDS: DEXT 10% WATER 1,000 ML IV SCH (06:43)
[2021-09-09] MEDS: BLOOD SUGAR DIAGNOSTIC STRIP TEST SCH ×8 (08:01→20:48)
[2021-09-09] MEDS: INSULIN LISPRO (MEDIUM DOSE) 100 UNITS/ML SUBCUT SCH ×3 (08:07→17:27)
[2021-09-09 09:43] LABS: BG BASE EXCESS -1.6 mmol/L (-2.0-2.0); BG CARBOXYHEMOGLOBIN 0.2 % (0.5-1.5); BG FRACTION INSPIRED OXYGEN 60; BG METHEMOGLOBIN 0.1 % (0.0-1.5); BG OXYGEN SATURATION 80.9 % (92.0-98.5); BG OXYHEMOGLOBIN 80.7 % (94.0-97.0); BG PCO2 52.4 mmHg (35.0-45.0); BG PH 7.297 (7.350-7.450); BG PO2 50.2 mmHg (75.0-100.0); BG SAMPLE SITE RIGHT RADIAL; BG TOTAL HEMOGLOBIN 8.4 g/dL (12.0-18.0); BG TOTAL RESPIRATORY RATE 47 b/min; BG VENT MODE VENT- PRVC
[2021-09-09] MEDS ORDERED: HEPARIN SODIUM 1,000 UNIT/1ML VIAL IV NR (09:45)
[2021-09-09] MEDS ORDERED: CALCIUM ACETATE 667MG CAPSULE PO PRN (10:45)
[2021-09-09] MEDS: THIAMINE HCL 100MG TABLET PO SCH (11:01)
[2021-09-09] MEDS: MULTIVITAMINS,THER W-MINERALS TABLET PO SCH (11:02)
[2021-09-09] MEDS: DEXAMETHASONE 10 MG/ML VIAL IV SCH (11:02)
[2021-09-09] MEDS: PANTOPRAZOLE SODIUM 40 MG/VIAL IV SCH ×2 (11:02→17:26)
[2021-09-09] MEDS ORDERED: CALCIUM CHLORIDE 1GM/10ML SYR IV NR (12:00)
[2021-09-09] MEDS: MEROPENEM 1,000 MG in SODIUM CHLORIDE 0.9% 100 ML IV SCH (17:26)
[2021-09-09] MEDS: INSULIN LISPRO 100 UNITS/ML SUBCUT SCH (20:58)
[2021-09-10] VITALS (95 sets, daily range): BP systolic 87–156; BP diastolic 41–102
[2021-09-10] MEDS: IPRATROPIUM/ALBUTEROL 0.5-3(2.5)MG/3ML NEB HHN SCH ×6 (00:12→20:09)
[2021-09-10] MEDS: BLOOD SUGAR DIAGNOSTIC STRIP TEST SCH ×6 (00:20→20:57)
[2021-09-10] MEDS: PROPOFOL 10MG/ML 100ML 100 ML IV PRN ×3 (01:31→17:12)
[2021-09-10] MEDS: FENTANYL CITRATE/PF 2,500 MCG in SODIUM CHLORIDE 0.9% 200 ML IV PRN ×3 (02:12→23:32)
[2021-09-10] MEDS: INSULIN LISPRO 100 UNITS/ML SUBCUT SCH ×6 (04:00→21:36)
[2021-09-10 06:12] LABS: HEMATOCRIT. 22.3 % (42.0-52.0); HEMOGLOBIN. 7.4 g/dL (14.0-18.0); MEAN CORPUSCULAR HEMOGLOBIN 27.3 pg (28.0-32.0); MEAN CORPUSCULAR VOLUME 82.3 fL (80.0-94.0); MEAN PLATELET VOLUME 8.8 fl (7.4-10.4); PLATELET 182 x1000/uL (130-400); RED BLOOD CELL COUNT 2.71 mill/uL (4.7-6.1); RED CELL DISTRIBUTION WIDTH 14.9 % (11.6-14.6)
[2021-09-10 06:28] LABS: PLATELET ESTIMATE NORMAL
[2021-09-10] MEDS: MEROPENEM 1,000 MG in SODIUM CHLORIDE 0.9% 100 ML IV SCH (06:45)
[2021-09-10] MEDS: THIAMINE HCL 100MG TABLET PO SCH (08:51)
[2021-09-10] MEDS: MULTIVITAMINS,THER W-MINERALS TABLET PO SCH (08:51)
[2021-09-10] MEDS: PANTOPRAZOLE SODIUM 40 MG/VIAL IV SCH ×2 (08:51→16:39)
[2021-09-10] MEDS: DEXAMETHASONE 10 MG/ML VIAL IV SCH (08:52)
[2021-09-10 09:37] LABS: BG BASE EXCESS -3.4 mmol/L (-2.0-2.0); BG CARBOXYHEMOGLOBIN 0.1 % (0.5-1.5); BG FRACTION INSPIRED OXYGEN 70; BG HCO3 ACT 22.2 mmol/L (22.0-26.0); BG METHEMOGLOBIN 0.3 % (0.0-1.5); BG OXYHEMOGLOBIN 91.6 % (94.0-97.0); BG PCO2 42.3 mmHg (35.0-45.0); BG PH 7.337 (7.350-7.450); BG SAMPLE SITE RIGHT RADIAL; BG TOTAL HEMOGLOBIN 8.1 g/dL (12.0-18.0); BG VENT MODE PRVC
[2021-09-10 13:40] LABS: PLATELET ESTIMATE NORMAL
[2021-09-10] MEDS: EPOETIN ALFA-EPBX 4,000 UNIT/ML VIAL SUBCUT SCH (21:33)
[2021-09-11] VITALS (73 sets, daily range): BP systolic 87–151; BP diastolic 42–77
[2021-09-11] MEDS: IPRATROPIUM/ALBUTEROL 0.5-3(2.5)MG/3ML NEB HHN SCH ×7 (00:09→23:56)
[2021-09-11] MEDS: BLOOD SUGAR DIAGNOSTIC STRIP TEST SCH ×6 (00:12→23:55)
[2021-09-11] MEDS: PROPOFOL 10MG/ML 100ML 100 ML IV PRN ×4 (00:35→10:38)
[2021-09-11] MEDS: INSULIN LISPRO 100 UNITS/ML SUBCUT SCH ×6 (04:00→23:55)
[2021-09-11] MEDS: MEROPENEM 1,000 MG in SODIUM CHLORIDE 0.9% 100 ML IV SCH (06:09)
[2021-09-11 06:32] LABS: HEMATOCRIT. 23.9 % (42.0-52.0); HEMOGLOBIN. 7.8 g/dL (14.0-18.0); MEAN CORPUSCULAR HEMOGLOBIN 27.2 pg (28.0-32.0); MEAN CORPUSCULAR VOLUME 82.6 fL (80.0-94.0); MEAN PLATELET VOLUME 8.8 fl (7.4-10.4); PLATELET 204 x1000/uL (130-400); RED BLOOD CELL COUNT 2.89 mill/uL (4.7-6.1)
[2021-09-11] MEDS: DEXAMETHASONE 10 MG/ML VIAL IV SCH (08:19)
[2021-09-11] MEDS: PANTOPRAZOLE SODIUM 40 MG/VIAL IV SCH ×2 (08:19→17:12)
[2021-09-11] MEDS: THIAMINE HCL 100MG TABLET PO SCH (08:19)
[2021-09-11] MEDS: MULTIVITAMINS,THER W-MINERALS TABLET PO SCH (08:19)
[2021-09-11] MEDS: FENTANYL CITRATE/PF 2,500 MCG in SODIUM CHLORIDE 0.9% 200 ML IV PRN ×2 (08:46→18:41)
[2021-09-11 08:50] LABS: BG BASE EXCESS -3.9 mmol/L (-2.0-2.0); BG CARBOXYHEMOGLOBIN 0.2 % (0.5-1.5); BG DEOXYHEMOGLOBIN 9.5 % (0.0-5.0); BG FRACTION INSPIRED OXYGEN 55; BG HCO3 ACT 20.9 mmol/L (22.0-26.0); BG METHEMOGLOBIN 0.5 % (0.0-1.5); BG OXYGEN SATURATION 90.4 % (92.0-98.5); BG OXYHEMOGLOBIN 89.8 % (94.0-97.0); BG PCO2 36.7 mmHg (35.0-45.0); BG PH 7.373 (7.350-7.450); BG PO2 64.4 mmHg (75.0-100.0); BG SAMPLE SITE LEFT RADIAL; BG TOTAL HEMOGLOBIN 7.6 g/dL (12.0-18.0); BG VENT MODE PRVC
[2021-09-11] MEDS: MIDAZOLAM HCL 100 MG in SODIUM CHLORIDE 0.9% 80 ML IV PRN ×2 (11:54→23:32)
[2021-09-12] VITALS (97 sets, daily range): BP systolic 101–181; BP diastolic 49–84
[2021-09-12] MEDS: IPRATROPIUM/ALBUTEROL 0.5-3(2.5)MG/3ML NEB HHN SCH ×5 (03:19→19:57)
[2021-09-12] MEDS: MEROPENEM 1,000 MG in SODIUM CHLORIDE 0.9% 100 ML IV SCH (05:50)
[2021-09-12] MEDS: FENTANYL CITRATE/PF 2,500 MCG in SODIUM CHLORIDE 0.9% 200 ML IV PRN ×3 (05:51→23:55)
[2021-09-12] MEDS: BLOOD SUGAR DIAGNOSTIC STRIP TEST SCH ×4 (06:00→23:34)
[2021-09-12] MEDS: INSULIN LISPRO 100 UNITS/ML SUBCUT SCH ×4 (06:00→23:35)
[2021-09-12 06:13] LABS: PLATELET ESTIMATE NORMAL
[2021-09-12 07:28] LABS: HEMATOCRIT. 26.2 % (42.0-52.0); HEMOGLOBIN. 8.7 g/dL (14.0-18.0); MEAN CORPUSCULAR HEMOGLOBIN 27.3 pg (28.0-32.0); MEAN CORPUSCULAR VOLUME 82.6 fL (80.0-94.0); MEAN PLATELET VOLUME 8.8 fl (7.4-10.4); PLATELET 235 x1000/uL (130-400); RED BLOOD CELL COUNT 3.17 mill/uL (4.7-6.1)
[2021-09-12] MEDS: MIDAZOLAM HCL 100 MG in SODIUM CHLORIDE 0.9% 80 ML IV PRN ×2 (08:25→18:14)
[2021-09-12] MEDS: PANTOPRAZOLE SODIUM 40 MG/VIAL IV SCH ×2 (08:25→17:36)
[2021-09-12] MEDS: DEXAMETHASONE 10 MG/ML VIAL IV SCH (08:25)
[2021-09-12] MEDS: THIAMINE HCL 100MG TABLET PO SCH (08:25)
[2021-09-12] MEDS: MULTIVITAMINS,THER W-MINERALS TABLET PO SCH (08:25)
[2021-09-12 08:44] LABS: BG BASE EXCESS -1.9 mmol/L (-2.0-2.0); BG CARBOXYHEMOGLOBIN 0.6 % (0.5-1.5); BG DEOXYHEMOGLOBIN 3.5 % (0.0-5.0); BG FRACTION INSPIRED OXYGEN 75; BG HCO3 ACT 22.4 mmol/L (22.0-26.0); BG METHEMOGLOBIN 0.6 % (0.0-1.5); BG OXYGEN SATURATION 96.5 % (92.0-98.5); BG OXYHEMOGLOBIN 95.3 % (94.0-97.0); BG PCO2 35.7 mmHg (35.0-45.0); BG PH 7.415 (7.350-7.450); BG PO2 90.8 mmHg (75.0-100.0); BG SAMPLE SITE RIGHT RADIAL; BG TOTAL HEMOGLOBIN 7.5 g/dL (12.0-18.0); BG TOTAL RESPIRATORY RATE 40 b/min; BG VENT MODE VENT- PRVC
[2021-09-12] MEDS: METHYLPREDNISOLONE SOD SUCC 40 MG/ML VIAL IV SCH ×2 (12:00→17:36)
[2021-09-12 15:36] LABS: PLATELET ESTIMATE NORMAL
[2021-09-12] MEDS: EPOETIN ALFA-EPBX 4,000 UNIT/ML VIAL SUBCUT SCH (20:50)
[2021-09-13] VITALS (93 sets, daily range): BP systolic 98–169; BP diastolic 50–86
[2021-09-13] MEDS: IPRATROPIUM/ALBUTEROL 0.5-3(2.5)MG/3ML NEB HHN SCH ×6 (00:03→20:27)
[2021-09-13] MEDS: METHYLPREDNISOLONE SOD SUCC 40 MG/ML VIAL IV SCH ×3 (02:37→17:21)
[2021-09-13] MEDS: MIDAZOLAM HCL 100 MG in SODIUM CHLORIDE 0.9% 80 ML IV PRN ×2 (05:05→15:00)
[2021-09-13] MEDS: BLOOD SUGAR DIAGNOSTIC STRIP TEST SCH ×4 (05:15→23:59)
[2021-09-13] MEDS: MEROPENEM 1,000 MG in SODIUM CHLORIDE 0.9% 100 ML IV SCH (05:19)
[2021-09-13] MEDS: INSULIN LISPRO 100 UNITS/ML SUBCUT SCH ×4 (05:20→23:55)
[2021-09-13 06:22] LABS: HEMOGLOBIN. 7.7 g/dL (14.0-18.0); MEAN CORPUSCULAR HEMOGLOBIN 27.6 pg (28.0-32.0); MEAN CORPUSCULAR VOLUME 81.9 fL (80.0-94.0); MEAN PLATELET VOLUME 8.8 fl (7.4-10.4); PLATELET 204 x1000/uL (130-400); RED CELL DISTRIBUTION WIDTH 14.7 % (11.6-14.6)
[2021-09-13] MEDS: FENTANYL CITRATE/PF 2,500 MCG in SODIUM CHLORIDE 0.9% 200 ML IV PRN ×2 (08:54→17:17)
[2021-09-13] MEDS: THIAMINE HCL 100MG TABLET PO SCH (08:56)
[2021-09-13] MEDS: PANTOPRAZOLE SODIUM 40 MG/VIAL IV SCH ×2 (08:56→17:21)
[2021-09-13] MEDS: MULTIVITAMINS,THER W-MINERALS TABLET PO SCH (08:56)
[2021-09-13 09:02] LABS: BG BASE EXCESS -3.7 mmol/L (-2.0-2.0); BG CARBOXYHEMOGLOBIN 0.5 % (0.5-1.5); BG DEOXYHEMOGLOBIN 2.2 % (0.0-5.0); BG FRACTION INSPIRED OXYGEN 75; BG HCO3 ACT 20.7 mmol/L (22.0-26.0); BG METHEMOGLOBIN 0.6 % (0.0-1.5); BG OXYGEN SATURATION 97.8 % (92.0-98.5); BG OXYHEMOGLOBIN 96.7 % (94.0-97.0); BG PCO2 34.2 mmHg (35.0-45.0); BG PH 7.399 (7.350-7.450); BG SAMPLE SITE RIGHT RADIAL; BG TOTAL HEMOGLOBIN 7.2 g/dL (12.0-18.0); BG VENT MODE PRVC
[2021-09-13 10:45] LABS: PLATELET ESTIMATE NORMAL
[2021-09-13] MEDS: INSULIN GLARGINE UD 100 UNITS/ML SYR SUBCUT SCH (23:31)
[2021-09-14] VITALS (57 sets, daily range): BP systolic 118–176; BP diastolic 41–105
[2021-09-14] MEDS: IPRATROPIUM/ALBUTEROL 0.5-3(2.5)MG/3ML NEB HHN SCH ×6 (00:15→20:11)
[2021-09-14 02:07] LABS: HEPATITIS B SURFACE ANTIGEN NEGATIVE
[2021-09-14] MEDS: METHYLPREDNISOLONE SOD SUCC 40 MG/ML VIAL IV SCH ×3 (05:19→18:30)
[2021-09-14] MEDS: MEROPENEM 1,000 MG in SODIUM CHLORIDE 0.9% 100 ML IV SCH (05:19)
[2021-09-14] MEDS: BLOOD SUGAR DIAGNOSTIC STRIP TEST SCH ×3 (05:19→18:29)
[2021-09-14] MEDS: INSULIN LISPRO 100 UNITS/ML SUBCUT SCH ×3 (05:20→18:00)
[2021-09-14] MEDS: FENTANYL CITRATE/PF 2,500 MCG in SODIUM CHLORIDE 0.9% 200 ML IV PRN ×2 (05:21→16:53)
[2021-09-14 07:02] LABS: HEMATOCRIT. 23.5 % (42.0-52.0); MEAN CORPUSCULAR HEMOGLOBIN 27.6 pg (28.0-32.0); MEAN CORPUSCULAR VOLUME 80.8 fL (80.0-94.0); MEAN PLATELET VOLUME 8.9 fl (7.4-10.4); PLATELET 244 x1000/uL (130-400); RED BLOOD CELL COUNT 2.91 mill/uL (4.7-6.1); RED CELL DISTRIBUTION WIDTH 14.3 % (11.6-14.6)
[2021-09-14] MEDS: MULTIVITAMINS,THER W-MINERALS TABLET PO SCH (09:36)
[2021-09-14] MEDS: PANTOPRAZOLE SODIUM 40 MG/VIAL IV SCH ×2 (09:36→17:33)
[2021-09-14] MEDS: THIAMINE HCL 100MG TABLET PO SCH (09:36)
[2021-09-14] MEDS: INSULIN GLARGINE UD 100 UNITS/ML SYR SUBCUT SCH ×2 (09:37→21:26)
[2021-09-14 11:38] LABS: BG BASE EXCESS 0.4 mmol/L (-2.0-2.0); BG CARBOXYHEMOGLOBIN 0.3 % (0.5-1.5); BG DEOXYHEMOGLOBIN 5.7 % (0.0-5.0); BG FRACTION INSPIRED OXYGEN 50; BG HCO3 ACT 24.9 mmol/L (22.0-26.0); BG METHEMOGLOBIN 0.4 % (0.0-1.5); BG OXYGEN SATURATION 94.3 % (92.0-98.5); BG OXYHEMOGLOBIN 93.6 % (94.0-97.0); BG PCO2 39.6 mmHg (35.0-45.0); BG PH 7.417 (7.350-7.450); BG PO2 75.4 mmHg (75.0-100.0); BG SAMPLE SITE RIGHT RADIAL; BG TOTAL HEMOGLOBIN 8.9 g/dL (12.0-18.0); BG VENT MODE PRVC
[2021-09-14 12:45] LABS: PLATELET ESTIMATE NORMAL
[2021-09-14] MEDS: LEVOFLOXACIN 500MG PREMIX 100 ML IV SCH (15:34)
[2021-09-14] MEDS: EPOETIN ALFA-EPBX 4,000 UNIT/ML VIAL SUBCUT SCH (21:25)
[2021-09-15] VITALS (48 sets, daily range): BP systolic 101–209; BP diastolic 52–108
[2021-09-15] MEDS: IPRATROPIUM/ALBUTEROL 0.5-3(2.5)MG/3ML NEB HHN SCH ×6 (00:01→19:42)
[2021-09-15] MEDS: BLOOD SUGAR DIAGNOSTIC STRIP TEST SCH ×4 (00:28→17:20)
[2021-09-15] MEDS: METHYLPREDNISOLONE SOD SUCC 40 MG/ML VIAL IV SCH ×3 (02:22→17:20)
[2021-09-15] MEDS: HYDRALAZINE 20MG/ML VIAL IV PRN (02:24)
[2021-09-15] MEDS: CLONIDINE 0.1MG TABLET PO PRN (02:25)
[2021-09-15 03:01] LABS: BG BASE EXCESS -4.7 mmol/L (-2.0-2.0); BG CARBOXYHEMOGLOBIN 0.3 % (0.5-1.5); BG DEOXYHEMOGLOBIN 14.6 % (0.0-5.0); BG FRACTION INSPIRED OXYGEN 100; BG HCO3 ACT 23.1 mmol/L (22.0-26.0); BG METHEMOGLOBIN 0.3 % (0.0-1.5); BG OXYGEN SATURATION 85.3 % (92.0-98.5); BG OXYHEMOGLOBIN 84.8 % (94.0-97.0); BG PCO2 55.9 mmHg (35.0-45.0); BG PH 7.235 (7.350-7.450); BG PO2 61.9 mmHg (75.0-100.0); BG SAMPLE SITE RIGHT RADIAL; BG TOTAL HEMOGLOBIN 10.9 g/dL (12.0-18.0); BG VENT MODE VENT - APRV
[2021-09-15] MEDS: MIDAZOLAM HCL 100 MG in SODIUM CHLORIDE 0.9% 80 ML IV PRN ×2 (03:33→22:45)
[2021-09-15] MEDS: FENTANYL CITRATE/PF 2,500 MCG in SODIUM CHLORIDE 0.9% 200 ML IV PRN ×3 (03:34→23:07)
[2021-09-15] MEDS: INSULIN LISPRO 100 UNITS/ML SUBCUT SCH ×4 (06:00→17:20)
[2021-09-15] MEDS: AMLODIPINE 5MG TABLET PO SCH ×2 (09:00→21:21)
[2021-09-15] MEDS: PANTOPRAZOLE SODIUM 40 MG/VIAL IV SCH ×2 (09:00→16:40)
[2021-09-15] MEDS: THIAMINE HCL 100MG TABLET PO SCH (09:00)
[2021-09-15] MEDS: MULTIVITAMINS,THER W-MINERALS TABLET PO SCH (09:00)
[2021-09-15 09:39] LABS: BG CARBOXYHEMOGLOBIN 0.3 % (0.5-1.5); BG DEOXYHEMOGLOBIN 1.8 % (0.0-5.0); BG FRACTION INSPIRED OXYGEN 80; BG HCO3 ACT 24.6 mmol/L (22.0-26.0); BG METHEMOGLOBIN 0.3 % (0.0-1.5); BG OXYGEN SATURATION 98.2 % (92.0-98.5); BG OXYHEMOGLOBIN 97.6 % (94.0-97.0); BG PCO2 34.6 mmHg (35.0-45.0); BG PH 7.469 (7.350-7.450); BG PO2 130.4 mmHg (75.0-100.0); BG SAMPLE SITE LEFT RADIAL; BG TOTAL HEMOGLOBIN 7.9 g/dL (12.0-18.0); BG VENT MODE PRVC
[2021-09-15] MEDS: INSULIN GLARGINE UD 100 UNITS/ML SYR SUBCUT SCH ×2 (10:20→22:02)
[2021-09-16] VITALS (46 sets, daily range): BP systolic 113–165; BP diastolic 54–87
[2021-09-16] MEDS: BLOOD SUGAR DIAGNOSTIC STRIP TEST SCH ×5 (00:01→23:39)
[2021-09-16] MEDS: IPRATROPIUM/ALBUTEROL 0.5-3(2.5)MG/3ML NEB HHN SCH ×6 (00:02→20:12)
[2021-09-16 02:11] LABS: BG CARBOXYHEMOGLOBIN 0.3 % (0.5-1.5); BG DEOXYHEMOGLOBIN 10.1 % (0.0-5.0); BG FRACTION INSPIRED OXYGEN 100; BG HCO3 ACT 25.3 mmol/L (22.0-26.0); BG METHEMOGLOBIN 0.3 % (0.0-1.5); BG OXYGEN SATURATION 89.8 % (92.0-98.5); BG OXYHEMOGLOBIN 89.3 % (94.0-97.0); BG PCO2 49.4 mmHg (35.0-45.0); BG PH 7.327 (7.350-7.450); BG PO2 64.3 mmHg (75.0-100.0); BG SAMPLE SITE RIGHT RADIAL; BG TOTAL HEMOGLOBIN 10.4 g/dL (12.0-18.0); BG TOTAL RESPIRATORY RATE 28 b/min; BG VENT MODE prvc
[2021-09-16] MEDS: METHYLPREDNISOLONE SOD SUCC 40 MG/ML VIAL IV SCH ×3 (02:23→17:24)
[2021-09-16] MEDS: FENTANYL CITRATE/PF 2,500 MCG in SODIUM CHLORIDE 0.9% 200 ML IV PRN ×2 (04:35→13:27)
[2021-09-16] MEDS: MIDAZOLAM HCL 100 MG in SODIUM CHLORIDE 0.9% 80 ML IV PRN ×2 (05:37→22:10)
[2021-09-16] MEDS: INSULIN LISPRO 100 UNITS/ML SUBCUT SCH ×5 (05:56→23:44)
[2021-09-16 06:04] LABS: HEMATOCRIT. 25.1 % (42.0-52.0); HEMOGLOBIN. 8.3 g/dL (14.0-18.0); MEAN CORPUSCULAR HEMOGLOBIN 27.1 pg (28.0-32.0); MEAN CORPUSCULAR VOLUME 81.8 fL (80.0-94.0); MEAN PLATELET VOLUME 8.5 fl (7.4-10.4); PLATELET 276 x1000/uL (130-400); RED BLOOD CELL COUNT 3.07 mill/uL (4.7-6.1); RED CELL DISTRIBUTION WIDTH 14.9 % (11.6-14.6)
[2021-09-16] MEDS: THIAMINE HCL 100MG TABLET PO SCH (09:31)
[2021-09-16] MEDS: MULTIVITAMINS,THER W-MINERALS TABLET PO SCH (09:31)
[2021-09-16] MEDS: AMLODIPINE 5MG TABLET PO SCH ×2 (09:31→21:04)
[2021-09-16] MEDS: PANTOPRAZOLE SODIUM 40 MG/VIAL IV SCH ×2 (09:31→17:24)
[2021-09-16 10:02] LABS: BG BASE EXCESS 0.3 mmol/L (-2.0-2.0); BG CARBOXYHEMOGLOBIN 0.1 % (0.5-1.5); BG DEOXYHEMOGLOBIN 1.2 % (0.0-5.0); BG FRACTION INSPIRED OXYGEN 100; BG HCO3 ACT 25.9 mmol/L (22.0-26.0); BG METHEMOGLOBIN 0.4 % (0.0-1.5); BG OXYGEN SATURATION 98.8 % (92.0-98.5); BG OXYHEMOGLOBIN 98.3 % (94.0-97.0); BG PCO2 46.6 mmHg (35.0-45.0); BG PH 7.362 (7.350-7.450); BG PO2 151.1 mmHg (75.0-100.0); BG SAMPLE SITE LEFT RADIAL; BG TOTAL HEMOGLOBIN 8.6 g/dL (12.0-18.0); BG VENT MODE VENT - AC
[2021-09-16] MEDS: INSULIN GLARGINE UD 100 UNITS/ML SYR SUBCUT SCH ×2 (11:31→23:29)
[2021-09-16 15:19] LABS: PLATELET ESTIMATE NORMAL
[2021-09-16] MEDS: LEVOFLOXACIN 500MG PREMIX 100 ML IV SCH (15:43)
[2021-09-17] VITALS (47 sets, daily range): BP systolic 103–181; BP diastolic 52–83
[2021-09-17] MEDS: FENTANYL CITRATE/PF 2,500 MCG in SODIUM CHLORIDE 0.9% 200 ML IV PRN ×3 (00:11→18:11)
[2021-09-17] MEDS: IPRATROPIUM/ALBUTEROL 0.5-3(2.5)MG/3ML NEB HHN SCH ×5 (00:23→20:00)
[2021-09-17] MEDS: METHYLPREDNISOLONE SOD SUCC 40 MG/ML VIAL IV SCH ×3 (01:23→17:22)
[2021-09-17] MEDS: BLOOD SUGAR DIAGNOSTIC STRIP TEST SCH ×4 (06:20→23:44)
[2021-09-17] MEDS: INSULIN LISPRO 100 UNITS/ML SUBCUT SCH ×4 (06:21→23:44)
[2021-09-17 06:27] LABS: HEMATOCRIT. 22.4 % (42.0-52.0); HEMOGLOBIN. 7.6 g/dL (14.0-18.0); MEAN CORPUSCULAR HEMOGLOBIN 27.6 pg (28.0-32.0); MEAN CORPUSCULAR VOLUME 81.2 fL (80.0-94.0); MEAN PLATELET VOLUME 8.8 fl (7.4-10.4); PLATELET 257 x1000/uL (130-400); RED BLOOD CELL COUNT 2.76 mill/uL (4.7-6.1); RED CELL DISTRIBUTION WIDTH 15.3 % (11.6-14.6)
[2021-09-17] MEDS: MIDAZOLAM HCL 100 MG in SODIUM CHLORIDE 0.9% 80 ML IV PRN ×2 (07:08→23:07)
[2021-09-17 09:14] LABS: BG BASE EXCESS -0.7 mmol/L (-2.0-2.0); BG CARBOXYHEMOGLOBIN 0.2 % (0.5-1.5); BG FRACTION INSPIRED OXYGEN 60; BG HCO3 ACT 24.7 mmol/L (22.0-26.0); BG METHEMOGLOBIN 0.5 % (0.0-1.5); BG OXYHEMOGLOBIN 97.3 % (94.0-97.0); BG PCO2 44.4 mmHg (35.0-45.0); BG PH 7.363 (7.350-7.450); BG PO2 121.1 mmHg (75.0-100.0); BG SAMPLE SITE RIGHT RADIAL; BG VENT MODE PRVC
[2021-09-17] MEDS: MULTIVITAMINS,THER W-MINERALS TABLET PO SCH (09:33)
[2021-09-17] MEDS: AMLODIPINE 5MG TABLET PO SCH (09:33)
[2021-09-17] MEDS: THIAMINE HCL 100MG TABLET PO SCH (09:33)
[2021-09-17] MEDS: PANTOPRAZOLE SODIUM 40 MG/VIAL IV SCH ×2 (09:33→17:22)
[2021-09-17] MEDS: INSULIN GLARGINE UD 100 UNITS/ML SYR SUBCUT SCH ×2 (10:59→22:10)
[2021-09-17 17:36] LABS: PLATELET ESTIMATE NORMAL
[2021-09-17] MEDS: HYDRALAZINE 20MG/ML VIAL IV PRN (19:10)
[2021-09-17] MEDS: CLONIDINE 0.1MG TABLET PO PRN (19:57)
[2021-09-17 21:55] LABS: PHOSPHORUS 8.4 mg/dL (2.5-4.9)
[2021-09-17] MEDS: ACETAMINOPHEN 325MG TABLET PO PRN (23:53)
[2021-09-18] VITALS (75 sets, daily range): BP systolic 101–176; BP diastolic 48–82
[2021-09-18] MEDS: METHYLPREDNISOLONE SOD SUCC 40 MG/ML VIAL IV SCH ×3 (02:16→18:30)
[2021-09-18] MEDS: FENTANYL CITRATE/PF 2,500 MCG in SODIUM CHLORIDE 0.9% 200 ML IV PRN ×2 (02:18→12:45)
[2021-09-18] MEDS: IPRATROPIUM/ALBUTEROL 0.5-3(2.5)MG/3ML NEB HHN SCH ×7 (04:35→20:44)
[2021-09-18] MEDS: BLOOD SUGAR DIAGNOSTIC STRIP TEST SCH ×3 (05:51→18:30)
[2021-09-18] MEDS: ACETAMINOPHEN 325MG TABLET PO PRN ×2 (05:51→20:00)
[2021-09-18] MEDS: INSULIN LISPRO 100 UNITS/ML SUBCUT SCH ×3 (06:00→18:00)
[2021-09-18] MEDS: DEXTROSE 50% WATER 50ML SYRINGE IV PRN ×2 (06:08→12:34)
[2021-09-18] MEDS: HYDRALAZINE 20MG/ML VIAL IV PRN (08:22)
[2021-09-18] MEDS: MULTIVITAMINS,THER W-MINERALS TABLET PO SCH (08:23)
[2021-09-18] MEDS: THIAMINE HCL 100MG TABLET PO SCH (08:23)
[2021-09-18] MEDS: MIDAZOLAM HCL 100 MG in SODIUM CHLORIDE 0.9% 80 ML IV PRN ×2 (08:23→21:48)
[2021-09-18] MEDS: CALCIUM ACETATE 667MG CAPSULE PO SCH ×3 (08:23→18:30)
[2021-09-18] MEDS: PANTOPRAZOLE SODIUM 40 MG/VIAL IV SCH ×2 (08:23→18:30)
[2021-09-18 08:30] LABS: BG BASE EXCESS -6.9 mmol/L (-2.0-2.0); BG CARBOXYHEMOGLOBIN 0.3 % (0.5-1.5); BG DEOXYHEMOGLOBIN 16.1 % (0.0-5.0); BG FRACTION INSPIRED OXYGEN 40; BG METHEMOGLOBIN 0.1 % (0.0-1.5); BG OXYGEN SATURATION 83.8 % (92.0-98.5); BG OXYHEMOGLOBIN 83.5 % (94.0-97.0); BG PCO2 46.2 mmHg (35.0-45.0); BG PH 7.255 (7.350-7.450); BG PO2 55.8 mmHg (75.0-100.0); BG SAMPLE SITE RIGHT RADIAL; BG TOTAL HEMOGLOBIN 10.2 g/dL (12.0-18.0); BG TOTAL RESPIRATORY RATE 28 b/min; BG VENT MODE VENT- PRVC
[2021-09-18] MEDS: INSULIN GLARGINE UD 100 UNITS/ML SYR SUBCUT SCH ×2 (10:00→23:20)
[2021-09-18 10:06] LABS: HEMATOCRIT. 28.5 % (42.0-52.0); MEAN CORPUSCULAR HEMOGLOBIN 26.3 pg (28.0-32.0); MEAN CORPUSCULAR VOLUME 83.2 fL (80.0-94.0); MEAN PLATELET VOLUME 8.6 fl (7.4-10.4); PLATELET 324 x1000/uL (130-400); RED BLOOD CELL COUNT 3.43 mill/uL (4.7-6.1); RED CELL DISTRIBUTION WIDTH 15.4 % (11.6-14.6)
[2021-09-18] MEDS: LEVOFLOXACIN 500MG PREMIX 100 ML IV SCH (14:08)
[2021-09-18 17:18] LABS: PLATELET ESTIMATE NORMAL
[2021-09-18] MEDS ORDERED: VANCOMYCIN 1500MG in DEXTROSE 5% WATER 250ML IV NR (22:00)
[2021-09-19] VITALS (93 sets, daily range): BP systolic 116–186; BP diastolic 52–87
[2021-09-19] MEDS: IPRATROPIUM/ALBUTEROL 0.5-3(2.5)MG/3ML NEB HHN SCH ×6 (00:56→20:20)
[2021-09-19] MEDS: METHYLPREDNISOLONE SOD SUCC 40 MG/ML VIAL IV SCH ×3 (03:48→21:10)
[2021-09-19] MEDS: INSULIN LISPRO 100 UNITS/ML SUBCUT SCH ×6 (06:00→23:54)
[2021-09-19] MEDS: BLOOD SUGAR DIAGNOSTIC STRIP TEST SCH ×4 (06:00→17:21)
[2021-09-19 08:35] LABS: BG BASE EXCESS 4.2 mmol/L (-2.0-2.0); BG CARBOXYHEMOGLOBIN 0.3 % (0.5-1.5); BG DEOXYHEMOGLOBIN 4.9 % (0.0-5.0); BG FRACTION INSPIRED OXYGEN 50; BG HCO3 ACT 28.6 mmol/L (22.0-26.0); BG METHEMOGLOBIN 0.3 % (0.0-1.5); BG OXYGEN SATURATION 95.1 % (92.0-98.5); BG OXYHEMOGLOBIN 94.5 % (94.0-97.0); BG PCO2 42.2 mmHg (35.0-45.0); BG PH 7.449 (7.350-7.450); BG PO2 77.4 mmHg (75.0-100.0); BG SAMPLE SITE RIGHT RADIAL; BG VENT MODE VENT - AC/VC
[2021-09-19] MEDS: MIDAZOLAM HCL 100 MG in SODIUM CHLORIDE 0.9% 80 ML IV PRN ×2 (08:45→18:39)
[2021-09-19] MEDS: CALCIUM ACETATE 667MG CAPSULE PO SCH ×3 (08:45→17:21)
[2021-09-19] MEDS: THIAMINE HCL 100MG TABLET PO SCH (08:46)
[2021-09-19] MEDS: MULTIVITAMINS,THER W-MINERALS TABLET PO SCH (08:46)
[2021-09-19] MEDS: PANTOPRAZOLE SODIUM 40 MG/VIAL IV SCH ×2 (08:46→17:21)
[2021-09-19] MEDS: HYDRALAZINE 20MG/ML VIAL IV PRN (09:46)
[2021-09-19] MEDS: INSULIN GLARGINE UD 100 UNITS/ML SYR SUBCUT SCH ×3 (09:47→23:55)
[2021-09-19 10:57] LABS: HEMATOCRIT. 28.6 % (42.0-52.0); HEMOGLOBIN. 9.3 g/dL (14.0-18.0); MEAN CORPUSCULAR HEMOGLOBIN 26.9 pg (28.0-32.0); MEAN CORPUSCULAR VOLUME 82.3 fL (80.0-94.0); MEAN PLATELET VOLUME 8.9 fl (7.4-10.4); PLATELET 318 x1000/uL (130-400); RED BLOOD CELL COUNT 3.47 mill/uL (4.7-6.1); RED CELL DISTRIBUTION WIDTH 15.9 % (11.6-14.6)
[2021-09-19] MEDS: FENTANYL CITRATE/PF 2,500 MCG in SODIUM CHLORIDE 0.9% 200 ML IV PRN (16:11)
[2021-09-19 17:21] LABS: PLATELET ESTIMATE NORMAL
[2021-09-20] VITALS (92 sets, daily range): BP systolic 123–174; BP diastolic 58–88
[2021-09-20] MEDS: IPRATROPIUM/ALBUTEROL 0.5-3(2.5)MG/3ML NEB HHN SCH ×6 (01:07→20:46)
[2021-09-20] MEDS: MIDAZOLAM HCL 100 MG in SODIUM CHLORIDE 0.9% 80 ML IV PRN ×3 (02:32→21:19)
[2021-09-20] MEDS: FENTANYL CITRATE/PF 2,500 MCG in SODIUM CHLORIDE 0.9% 200 ML IV PRN ×2 (02:34→16:04)
[2021-09-20] MEDS: BLOOD SUGAR DIAGNOSTIC STRIP TEST SCH ×5 (06:00→23:58)
[2021-09-20 06:42] LABS: HEMATOCRIT. 25.4 % (42.0-52.0); HEMOGLOBIN. 8.4 g/dL (14.0-18.0); MEAN CORPUSCULAR HEMOGLOBIN 27.3 pg (28.0-32.0); MEAN CORPUSCULAR VOLUME 82.3 fL (80.0-94.0); MEAN PLATELET VOLUME 8.7 fl (7.4-10.4); PLATELET 270 x1000/uL (130-400); RED BLOOD CELL COUNT 3.08 mill/uL (4.7-6.1); RED CELL DISTRIBUTION WIDTH 15.8 % (11.6-14.6)
[2021-09-20] MEDS: INSULIN LISPRO 100 UNITS/ML SUBCUT SCH ×4 (07:03→23:58)
[2021-09-20] MEDS: CALCIUM ACETATE 667MG CAPSULE PO SCH ×3 (08:20→17:22)
[2021-09-20 08:35] LABS: BG BASE EXCESS -0.1 mmol/L (-2.0-2.0); BG CARBOXYHEMOGLOBIN 0.3 % (0.5-1.5); BG DEOXYHEMOGLOBIN 6.3 % (0.0-5.0); BG FRACTION INSPIRED OXYGEN 40; BG HCO3 ACT 25.1 mmol/L (22.0-26.0); BG METHEMOGLOBIN 0.3 % (0.0-1.5); BG OXYGEN SATURATION 93.7 % (92.0-98.5); BG OXYHEMOGLOBIN 93.1 % (94.0-97.0); BG PCO2 43.6 mmHg (35.0-45.0); BG PH 7.378 (7.350-7.450); BG PO2 75.7 mmHg (75.0-100.0); BG TOTAL HEMOGLOBIN 8.4 g/dL (12.0-18.0); BG VENT MODE VENT - AC
[2021-09-20] MEDS ORDERED: CEFEPIME HCL 1000MG/VIAL INJ IM SCH (09:00)
[2021-09-20] MEDS: MULTIVITAMINS,THER W-MINERALS TABLET PO SCH (09:35)
[2021-09-20] MEDS: PANTOPRAZOLE SODIUM 40 MG/VIAL IV SCH ×2 (09:35→17:22)
[2021-09-20] MEDS: THIAMINE HCL 100MG TABLET PO SCH (09:35)
[2021-09-20] MEDS: METHYLPREDNISOLONE SOD SUCC 40 MG/ML VIAL IV SCH ×2 (09:35→21:18)
[2021-09-20] MEDS: INSULIN GLARGINE UD 100 UNITS/ML SYR SUBCUT SCH ×2 (09:37→22:23)
[2021-09-20 10:44] LABS: PLATELET ESTIMATE NORMAL
[2021-09-20] MEDS ORDERED: VANCOMYCIN 1250MG in DEXTROSE 5% WATER 250ML IV NR (11:30)
[2021-09-20] MEDS ORDERED: CEFEPIME 1,000 MG in DEXTROSE 5% WATER 50 ML IV SCH (13:00)
[2021-09-20] MEDS: LEVOFLOXACIN 500MG PREMIX 100 ML IV SCH (15:41)
[2021-09-21] VITALS (95 sets, daily range): BP systolic 109–178; BP diastolic 58–84
[2021-09-21] MEDS: IPRATROPIUM/ALBUTEROL 0.5-3(2.5)MG/3ML NEB HHN SCH ×6 (00:27→20:10)
[2021-09-21] MEDS: FENTANYL CITRATE/PF 2,500 MCG in SODIUM CHLORIDE 0.9% 200 ML IV PRN ×2 (04:16→15:42)
[2021-09-21] MEDS: INSULIN LISPRO 100 UNITS/ML SUBCUT SCH ×4 (06:00→23:25)
[2021-09-21] MEDS: BLOOD SUGAR DIAGNOSTIC STRIP TEST SCH ×4 (06:54→22:47)
[2021-09-21] MEDS: MIDAZOLAM HCL 100 MG in SODIUM CHLORIDE 0.9% 80 ML IV PRN ×2 (06:55→17:55)
[2021-09-21 08:33] LABS: BG BASE EXCESS 5.1 mmol/L (-2.0-2.0); BG CARBOXYHEMOGLOBIN 0.8 % (0.5-1.5); BG DEOXYHEMOGLOBIN 5.8 % (0.0-5.0); BG FRACTION INSPIRED OXYGEN 40; BG HCO3 ACT 29.6 mmol/L (22.0-26.0); BG METHEMOGLOBIN 0.5 % (0.0-1.5); BG OXYGEN SATURATION 94.1 % (92.0-98.5); BG OXYHEMOGLOBIN 92.9 % (94.0-97.0); BG PCO2 43.6 mmHg (35.0-45.0); BG PH 7.449 (7.350-7.450); BG PO2 73.1 mmHg (75.0-100.0); BG SAMPLE SITE LEFT RADIAL; BG VENT MODE VENT - AC
[2021-09-21] MEDS: PANTOPRAZOLE SODIUM 40 MG/VIAL IV SCH ×2 (09:01→17:29)
[2021-09-21] MEDS: THIAMINE HCL 100MG TABLET PO SCH (09:01)
[2021-09-21] MEDS: METHYLPREDNISOLONE SOD SUCC 40 MG/ML VIAL IV SCH (09:01)
[2021-09-21] MEDS: CALCIUM ACETATE 667MG CAPSULE PO SCH ×3 (09:01→17:29)
[2021-09-21 09:41] LABS: HEMATOCRIT. 25.3 % (42.0-52.0); HEMOGLOBIN. 8.3 g/dL (14.0-18.0); MEAN CORPUSCULAR HEMOGLOBIN 26.6 pg (28.0-32.0); MEAN CORPUSCULAR VOLUME 81.4 fL (80.0-94.0); MEAN PLATELET VOLUME 8.8 fl (7.4-10.4); PLATELET 265 x1000/uL (130-400); RED BLOOD CELL COUNT 3.11 mill/uL (4.7-6.1); RED CELL DISTRIBUTION WIDTH 15.6 % (11.6-14.6)
[2021-09-21 10:05] LABS: PLATELET ESTIMATE NORMAL
[2021-09-21] MEDS: INSULIN GLARGINE UD 100 UNITS/ML SYR SUBCUT SCH ×2 (10:17→22:00)
[2021-09-21] MEDS: ENOXAPARIN 30MG/0.3ML SYR SUBCUT SCH (10:37)
[2021-09-21] MEDS: HYDRALAZINE 20MG/ML VIAL IV PRN (10:38)
[2021-09-21] MEDS: ACETAMINOPHEN 325MG TABLET PO PRN (12:43)
[2021-09-22] VITALS (95 sets, daily range): BP systolic 103–188; BP diastolic 46–91
[2021-09-22] MEDS: IPRATROPIUM/ALBUTEROL 0.5-3(2.5)MG/3ML NEB HHN SCH ×6 (00:08→20:11)
[2021-09-22] MEDS: FENTANYL CITRATE/PF 2,500 MCG in SODIUM CHLORIDE 0.9% 200 ML IV PRN ×3 (01:53→22:43)
[2021-09-22] MEDS: ACETAMINOPHEN 325MG TABLET PO PRN (02:35)
[2021-09-22] MEDS: MIDAZOLAM HCL 100 MG in SODIUM CHLORIDE 0.9% 80 ML IV PRN ×2 (04:04→16:45)
[2021-09-22 05:55] LABS: HEMATOCRIT. 23.4 % (42.0-52.0); HEMOGLOBIN. 7.6 g/dL (14.0-18.0); MEAN CORPUSCULAR HEMOGLOBIN 26.7 pg (28.0-32.0); MEAN CORPUSCULAR VOLUME 82.3 fL (80.0-94.0); MEAN PLATELET VOLUME 8.8 fl (7.4-10.4); PLATELET 227 x1000/uL (130-400); RED BLOOD CELL COUNT 2.84 mill/uL (4.7-6.1)
[2021-09-22] MEDS: INSULIN LISPRO 100 UNITS/ML SUBCUT SCH ×3 (06:00→17:49)
[2021-09-22] MEDS: BLOOD SUGAR DIAGNOSTIC STRIP TEST SCH ×4 (06:00→23:19)
[2021-09-22 07:35] LABS: PLATELET ESTIMATE NORMAL
[2021-09-22 07:56] LABS: BG CARBOXYHEMOGLOBIN 0.4 % (0.5-1.5); BG DEOXYHEMOGLOBIN 4.6 % (0.0-5.0); BG FRACTION INSPIRED OXYGEN 45; BG HCO3 ACT 26.7 mmol/L (22.0-26.0); BG METHEMOGLOBIN 0.6 % (0.0-1.5); BG OXYGEN SATURATION 95.4 % (92.0-98.5); BG OXYHEMOGLOBIN 94.4 % (94.0-97.0); BG PCO2 42.4 mmHg (35.0-45.0); BG PH 7.417 (7.350-7.450); BG PO2 80.5 mmHg (75.0-100.0); BG SAMPLE SITE LEFT RADIAL; BG TOTAL HEMOGLOBIN 7.4 g/dL (12.0-18.0); BG TOTAL RESPIRATORY RATE 22 b/min; BG VENT MODE VENT - AC
[2021-09-22] MEDS: METHYLPREDNISOLONE SOD SUCC 40 MG/ML VIAL IV SCH (08:44)
[2021-09-22] MEDS: PANTOPRAZOLE SODIUM 40 MG/VIAL IV SCH ×2 (08:44→16:44)
[2021-09-22] MEDS: CALCIUM ACETATE 667MG CAPSULE PO SCH ×3 (08:44→17:48)
[2021-09-22] MEDS: ENOXAPARIN 30MG/0.3ML SYR SUBCUT SCH (08:45)
[2021-09-22] MEDS: HYDRALAZINE 20MG/ML VIAL IV PRN (10:55)
[2021-09-22] MEDS: INSULIN GLARGINE UD 100 UNITS/ML SYR SUBCUT SCH ×2 (10:56→23:19)
[2021-09-22] MEDS ORDERED: LEVOFLOXACIN 500MG PREMIX 100 ML IV SCH (15:00)
[2021-09-22] MEDS ORDERED: VANCOMYCIN 1G PREMIX 200 ML IV SCH (15:00)
[2021-09-22] MEDS ORDERED: VANCOMYCIN 750 MG in DEXT 5% WATER 250 ML IV SCH (22:00)
[2021-09-23] VITALS (94 sets, daily range): BP systolic 89–159; BP diastolic 41–73
[2021-09-23] MEDS: IPRATROPIUM/ALBUTEROL 0.5-3(2.5)MG/3ML NEB HHN SCH ×6 (00:08→20:39)
[2021-09-23] MEDS: MIDAZOLAM HCL 100 MG in SODIUM CHLORIDE 0.9% 80 ML IV PRN ×5 (01:40→22:12)
[2021-09-23] MEDS: BLOOD SUGAR DIAGNOSTIC STRIP TEST SCH ×3 (05:57→18:16)
[2021-09-23] MEDS: INSULIN LISPRO 100 UNITS/ML SUBCUT SCH ×4 (05:57→18:25)
[2021-09-23] MEDS: FENTANYL CITRATE/PF 2,500 MCG in SODIUM CHLORIDE 0.9% 200 ML IV PRN ×3 (05:58→22:12)
[2021-09-23 06:21] LABS: HEMATOCRIT. 25.5 % (42.0-52.0); HEMOGLOBIN. 8.4 g/dL (14.0-18.0); MEAN CORPUSCULAR HEMOGLOBIN 27.2 pg (28.0-32.0); MEAN CORPUSCULAR VOLUME 82.6 fL (80.0-94.0); PLATELET 220 x1000/uL (130-400); RED BLOOD CELL COUNT 3.09 mill/uL (4.7-6.1); RED CELL DISTRIBUTION WIDTH 15.3 % (11.6-14.6)
[2021-09-23] MEDS: PANTOPRAZOLE SODIUM 40 MG/VIAL IV SCH ×2 (08:29→16:54)
[2021-09-23] MEDS: METHYLPREDNISOLONE SOD SUCC 40 MG/ML VIAL IV SCH (08:29)
[2021-09-23] MEDS: CALCIUM ACETATE 667MG CAPSULE PO SCH ×3 (08:29→18:25)
[2021-09-23] MEDS: INSULIN GLARGINE UD 100 UNITS/ML SYR SUBCUT SCH (09:28)
[2021-09-23 14:11] LABS: PLATELET ESTIMATE NORMAL
[2021-09-23] MEDS ORDERED: POTASSIUM CHLORIDE 20MEQ/PACKET PO NR (19:45)
[2021-09-24] VITALS (106 sets, daily range): BP systolic 109–202; BP diastolic 55–100
[2021-09-24] MEDS: INSULIN GLARGINE UD 100 UNITS/ML SYR SUBCUT SCH ×3 (00:09→22:00)
[2021-09-24] MEDS: INSULIN LISPRO 100 UNITS/ML SUBCUT SCH ×4 (00:09→18:00)
[2021-09-24] MEDS: BLOOD SUGAR DIAGNOSTIC STRIP TEST SCH ×4 (00:10→18:15)
[2021-09-24] MEDS: IPRATROPIUM/ALBUTEROL 0.5-3(2.5)MG/3ML NEB HHN SCH ×6 (00:28→21:27)
[2021-09-24] MEDS: DEXTROSE 50% WATER 50ML SYRINGE IV PRN ×2 (05:25→23:30)
[2021-09-24 05:47] LABS: BASOPHILS % 0.4 % (0.0-2.0); EOSINOPHILS % 0.3 % (0.0-5.0); HEMATOCRIT. 23.1 % (42.0-52.0); HEMOGLOBIN. 7.8 g/dL (14.0-18.0); LYMPHOCYTES % 10.3 % (20.0-50.0); MEAN CORPUSCULAR HEMOGLOBIN 27.6 pg (28.0-32.0); MEAN CORPUSCULAR VOLUME 81.9 fL (80.0-94.0); MEAN PLATELET VOLUME 8.8 fl (7.4-10.4); MONOCYTES % 7.9 % (2.0-8.0); NEUTROPHILS % 81.1 % (40.0-76.0); PLATELET 205 x1000/uL (130-400); RED BLOOD CELL COUNT 2.83 mill/uL (4.7-6.1); RED CELL DISTRIBUTION WIDTH 15.2 % (11.6-14.6)
[2021-09-24] MEDS: MIDAZOLAM HCL 100 MG in SODIUM CHLORIDE 0.9% 80 ML IV PRN (06:32)
[2021-09-24] MEDS: METHYLPREDNISOLONE SOD SUCC 40 MG/ML VIAL IV SCH (08:01)
[2021-09-24] MEDS: FENTANYL CITRATE/PF 2,500 MCG in SODIUM CHLORIDE 0.9% 200 ML IV PRN (08:01)
[2021-09-24] MEDS: PANTOPRAZOLE SODIUM 40 MG/VIAL IV SCH ×2 (08:01→18:38)
[2021-09-24] MEDS: CALCIUM ACETATE 667MG CAPSULE PO SCH ×3 (08:20→18:20)
[2021-09-24] MEDS ORDERED: ROCURONIUM BROMIDE 10MG/ML VIAL 5ML IV ONE (09:27)
[2021-09-24] MEDS ORDERED: VECURONIUM BROMIDE 10 MG/VIAL IV ONE (09:48)
[2021-09-24] MEDS ORDERED: SODIUM CHLORIDE 0.9% 10ML VIAL ONE (09:48)
[2021-09-24] MEDS: LEVOFLOXACIN 500MG PREMIX 100 ML IV SCH (10:45)
[2021-09-24] MEDS ORDERED: NALOXONE HCL 0.4MG/ML VIAL IV PRN (13:00)
[2021-09-24] MEDS ORDERED: VANCOMYCIN 1250MG in DEXTROSE 5% WATER 250ML IV NR (15:00)
[2021-09-24] MEDS: LORAZEPAM 2MG/ML CPJ IV PRN (18:52)
[2021-09-24] MEDS: MORPHINE SULFATE 4 MG/ML CPJ (NOT FOR IM USE) IV PRN (20:44)
[2021-09-24] MEDS: HYDRALAZINE 20MG/ML VIAL IV PRN (22:50)
[2021-09-24] MEDS: DEXT 5%/0.9% NACL 1,000 ML IV SCH (23:31)
[2021-09-24] MEDS ORDERED: ACETAMINOPHEN 650MG SUPP PR PRN (23:45)
[2021-09-25] VITALS (94 sets, daily range): BP systolic 119–183; BP diastolic 56–117
[2021-09-25] MEDS: DILTIAZEM HCL 125 MG in DEXT 5% WATER 100 ML IV PRN ×3 (00:18→17:17)
[2021-09-25] MEDS: IPRATROPIUM/ALBUTEROL 0.5-3(2.5)MG/3ML NEB HHN SCH ×6 (00:53→21:01)
[2021-09-25] MEDS: MORPHINE SULFATE 4 MG/ML CPJ (NOT FOR IM USE) IV PRN ×2 (02:30→10:07)
[2021-09-25 05:55] LABS: BASOPHILS % 0.3 % (0.0-2.0); EOSINOPHILS % 0.1 % (0.0-5.0); HEMATOCRIT. 27.7 % (42.0-52.0); HEMOGLOBIN. 9.1 g/dL (14.0-18.0); LYMPHOCYTES % 8.5 % (20.0-50.0); MEAN CORPUSCULAR HEMOGLOBIN 26.9 pg (28.0-32.0); MEAN PLATELET VOLUME 8.6 fl (7.4-10.4); MONOCYTES % 8.2 % (2.0-8.0); NEUTROPHILS % 82.9 % (40.0-76.0); PLATELET 238 x1000/uL (130-400); RED BLOOD CELL COUNT 3.38 mill/uL (4.7-6.1); RED CELL DISTRIBUTION WIDTH 15.4 % (11.6-14.6)
[2021-09-25] MEDS: INSULIN LISPRO 100 UNITS/ML SUBCUT SCH ×4 (06:00→17:18)
[2021-09-25] MEDS: BLOOD SUGAR DIAGNOSTIC STRIP TEST SCH ×4 (06:40→17:18)
[2021-09-25] MEDS: CALCIUM ACETATE 667MG CAPSULE PO SCH ×3 (08:05→17:14)
[2021-09-25] MEDS: PANTOPRAZOLE SODIUM 40 MG/VIAL IV SCH ×2 (08:12→17:18)
[2021-09-25] MEDS: LORAZEPAM 2MG/ML CPJ IV PRN ×2 (08:13→18:44)
[2021-09-25] MEDS ORDERED: PREDNISONE 20MG TABLET PO SCH (09:00)
[2021-09-25 09:13] LABS: BG BASE EXCESS -0.8 mmol/L (-2.0-2.0); BG CARBOXYHEMOGLOBIN 0.3 % (0.5-1.5); BG DEOXYHEMOGLOBIN 3.1 % (0.0-5.0); BG FRACTION INSPIRED OXYGEN 35; BG HCO3 ACT 22.3 mmol/L (22.0-26.0); BG METHEMOGLOBIN 0.3 % (0.0-1.5); BG OXYGEN SATURATION 96.9 % (92.0-98.5); BG OXYHEMOGLOBIN 96.3 % (94.0-97.0); BG PH 7.475 (7.350-7.450); BG PO2 91.5 mmHg (75.0-100.0); BG SAMPLE SITE RIGHT RADIAL; BG TOTAL HEMOGLOBIN 9.3 g/dL (12.0-18.0); BG VENT MODE VENT - AC
[2021-09-25] MEDS: HYDRALAZINE 20MG/ML VIAL IV PRN (10:06)
[2021-09-25] MEDS: INSULIN GLARGINE UD 100 UNITS/ML SYR SUBCUT SCH (10:07)
[2021-09-25] MEDS ORDERED: HYDRALAZINE HCL 100MG TABLET PO NR (11:00)
[2021-09-25] MEDS: RISPERIDONE 0.5MG TABLET PO SCH (11:56)
[2021-09-25] MEDS: DILTIAZEM HCL 90MG TABLET PO SCH ×2 (11:56→17:15)
[2021-09-25] MEDS: DEXTROSE 50% WATER 50ML SYRINGE IV PRN (17:15)
[2021-09-25] MEDS: HYDRALAZINE HCL 100MG TABLET PO SCH (17:18)
[2021-09-25] MEDS: DEXT 5%/0.9% NACL 1,000 ML IV SCH (17:20)
[2021-09-25] MEDS ORDERED: DILTIAZEM 125MG/125ML PMX 125 ML IV SCH (19:30)
[2021-09-26] VITALS (96 sets, daily range): BP systolic 86–154; BP diastolic 50–77
[2021-09-26] MEDS: HYDRALAZINE HCL 100MG TABLET PO SCH ×4 (00:24→23:07)
[2021-09-26] MEDS: BLOOD SUGAR DIAGNOSTIC STRIP TEST SCH ×4 (00:25→17:47)
[2021-09-26] MEDS: DILTIAZEM HCL 90MG TABLET PO SCH ×5 (00:29→23:06)
[2021-09-26] MEDS: IPRATROPIUM/ALBUTEROL 0.5-3(2.5)MG/3ML NEB HHN SCH ×6 (00:37→19:51)
[2021-09-26] MEDS: LORAZEPAM 2MG/ML CPJ IV PRN ×3 (01:49→18:21)
[2021-09-26 06:12] LABS: BASOPHILS % 0.3 % (0.0-2.0); EOSINOPHILS % 0.2 % (0.0-5.0); HEMATOCRIT. 25.4 % (42.0-52.0); HEMOGLOBIN. 8.6 g/dL (14.0-18.0); LYMPHOCYTES % 7.2 % (20.0-50.0); MEAN CORPUSCULAR HEMOGLOBIN 27.4 pg (28.0-32.0); MEAN CORPUSCULAR VOLUME 80.7 fL (80.0-94.0); MEAN PLATELET VOLUME 8.5 fl (7.4-10.4); MONOCYTES % 5.7 % (2.0-8.0); NEUTROPHILS % 86.6 % (40.0-76.0); PLATELET 191 x1000/uL (130-400); RED BLOOD CELL COUNT 3.15 mill/uL (4.7-6.1); RED CELL DISTRIBUTION WIDTH 15.6 % (11.6-14.6)
[2021-09-26 06:33] LABS: PHOSPHORUS 3.1 mg/dL (2.5-4.9)
[2021-09-26] MEDS: INSULIN LISPRO 100 UNITS/ML SUBCUT SCH ×4 (06:38→17:53)
[2021-09-26 08:32] LABS: BG BASE EXCESS -1.7 mmol/L (-2.0-2.0); BG CARBOXYHEMOGLOBIN 0.3 % (0.5-1.5); BG DEOXYHEMOGLOBIN 2.8 % (0.0-5.0); BG FRACTION INSPIRED OXYGEN 40; BG HCO3 ACT 21.1 mmol/L (22.0-26.0); BG OXYGEN SATURATION 97.2 % (92.0-98.5); BG OXYHEMOGLOBIN 96.9 % (94.0-97.0); BG PCO2 28.4 mmHg (35.0-45.0); BG PH 7.489 (7.350-7.450); BG PO2 101.1 mmHg (75.0-100.0); BG SAMPLE SITE RIGHT RADIAL; BG TOTAL HEMOGLOBIN 8.8 g/dL (12.0-18.0); BG VENT MODE VENT - AC
[2021-09-26] MEDS: CALCIUM ACETATE 667MG CAPSULE PO SCH ×3 (08:35→17:52)
[2021-09-26] MEDS: PANTOPRAZOLE SODIUM 40 MG/VIAL IV SCH ×2 (08:35→17:52)
[2021-09-26] MEDS: RISPERIDONE 0.5MG TABLET PO SCH (08:35)
[2021-09-26] MEDS: LEVOFLOXACIN 500MG PREMIX 100 ML IV SCH (10:22)
[2021-09-26] MEDS: DEXT 5%/0.9% NACL 1,000 ML IV SCH (10:22)
[2021-09-26] MEDS: RISPERIDONE 1MG TABLET PO SCH (17:52)
[2021-09-27] VITALS (19 sets, daily range): BP systolic 112–157; BP diastolic 50–92
[2021-09-27] MEDS: IPRATROPIUM/ALBUTEROL 0.5-3(2.5)MG/3ML NEB HHN SCH ×5 (00:01→20:16)
[2021-09-27] MEDS: INSULIN LISPRO 100 UNITS/ML SUBCUT SCH ×5 (01:41→23:41)
[2021-09-27] MEDS: HYDRALAZINE HCL 100MG TABLET PO SCH ×3 (06:03→21:20)
[2021-09-27] MEDS: DILTIAZEM HCL 90MG TABLET PO SCH ×3 (06:06→18:15)
[2021-09-27] MEDS: BLOOD SUGAR DIAGNOSTIC STRIP TEST SCH ×4 (06:08→18:15)
[2021-09-27] MEDS: CALCIUM ACETATE 667MG CAPSULE PO SCH ×3 (09:12→18:14)
[2021-09-27] MEDS: RISPERIDONE 1MG TABLET PO SCH ×2 (09:12→18:15)
[2021-09-27] MEDS: PANTOPRAZOLE SODIUM 40 MG/VIAL IV SCH ×2 (09:13→18:14)
[2021-09-27] MEDS: DEXT 5%/0.9% NACL 1,000 ML IV SCH (12:22)
[2021-09-27] MEDS: LORAZEPAM 2MG/ML CPJ IV PRN (12:31)
[2021-09-27] MEDS ORDERED: VANCOMYCIN 500MG PREMIX 100 ML IV NR (21:00)
[2021-09-28] VITALS (14 sets, daily range): BP systolic 104–160; BP diastolic 50–89
[2021-09-28] MEDS: IPRATROPIUM/ALBUTEROL 0.5-3(2.5)MG/3ML NEB HHN SCH ×6 (00:29→20:13)
[2021-09-28] MEDS: DILTIAZEM HCL 90MG TABLET PO SCH ×4 (01:11→17:42)
[2021-09-28] MEDS: HYDRALAZINE HCL 100MG TABLET PO SCH ×4 (05:39→21:11)
[2021-09-28] MEDS: INSULIN LISPRO 100 UNITS/ML SUBCUT SCH ×3 (05:39→17:46)
[2021-09-28] MEDS: BLOOD SUGAR DIAGNOSTIC STRIP TEST SCH ×4 (05:40→17:23)
[2021-09-28] MEDS: PANTOPRAZOLE SODIUM 40 MG/VIAL IV SCH ×2 (08:50→17:42)
[2021-09-28] MEDS: RISPERIDONE 1MG TABLET PO SCH ×2 (08:50→17:42)
[2021-09-28] MEDS: CALCIUM ACETATE 667MG CAPSULE PO SCH ×3 (08:50→17:42)
[2021-09-28] MEDS: DEXT 5%/0.9% NACL 1,000 ML IV SCH (08:51)
[2021-09-28] MEDS: LEVOFLOXACIN 500MG PREMIX 100 ML IV SCH (11:54)
[2021-09-28] MEDS: ACETAMINOPHEN 325MG TABLET PO PRN (12:35)
[2021-09-28] MEDS: LORAZEPAM 2MG/ML CPJ IV PRN ×2 (13:53→20:20)
[2021-09-28] MEDS ORDERED: MORPHINE SULFATE 2 MG/ML CPJ (NOT FOR IM USE) IV PRN (15:39)
[2021-09-28 18:15] LABS: BASOPHILS % 0.7 % (0.0-2.0); EOSINOPHILS % 0.5 % (0.0-5.0); LYMPHOCYTES % 12.4 % (20.0-50.0); MEAN CORPUSCULAR VOLUME 81.6 fL (80.0-94.0); MEAN PLATELET VOLUME 8.7 fl (7.4-10.4); MONOCYTES % 5.7 % (2.0-8.0); NEUTROPHILS % 80.7 % (40.0-76.0); PLATELET 181 x1000/uL (130-400); RED BLOOD CELL COUNT 2.58 mill/uL (4.7-6.1); RED CELL DISTRIBUTION WIDTH 15.9 % (11.6-14.6)
[2021-09-28 18:29] LABS: HEMOGLOBIN. 6.7 g/dL (14.0-18.0)
[2021-09-28 18:30] LABS: HEMATOCRIT. 21.1 % (42.0-52.0)
[2021-09-29] VITALS (16 sets, daily range): BP systolic 112–175; BP diastolic 59–87
[2021-09-29] MEDS: IPRATROPIUM/ALBUTEROL 0.5-3(2.5)MG/3ML NEB HHN SCH ×6 (00:11→20:36)
[2021-09-29] MEDS: BLOOD SUGAR DIAGNOSTIC STRIP TEST SCH ×4 (00:12→17:16)
[2021-09-29] MEDS: DILTIAZEM HCL 90MG TABLET PO SCH ×4 (00:16→17:16)
[2021-09-29] MEDS: INSULIN LISPRO 100 UNITS/ML SUBCUT SCH ×4 (00:30→17:41)
[2021-09-29] MEDS: DEXT 5%/0.9% NACL 1,000 ML IV SCH ×2 (03:48→23:32)
[2021-09-29] MEDS: LORAZEPAM 2MG/ML CPJ IV PRN ×2 (03:58→10:54)
[2021-09-29] MEDS: HYDRALAZINE HCL 100MG TABLET PO SCH ×3 (06:13→21:28)
[2021-09-29] MEDS: RISPERIDONE 1MG TABLET PO SCH ×2 (09:00→17:16)
[2021-09-29] MEDS: CALCIUM ACETATE 667MG CAPSULE PO SCH ×3 (09:01→17:16)
[2021-09-29] MEDS: PANTOPRAZOLE SODIUM 40 MG/VIAL IV SCH ×2 (09:01→17:15)
[2021-09-29] MEDS: ACETAMINOPHEN 325MG TABLET PO PRN ×2 (11:48→17:16)
[2021-09-29 12:35] LABS: HEMATOCRIT 25.6 % (42.0-52.0); HEMOGLOBIN 8.2 g/dL (14.0-18.0)
[2021-09-29] MEDS: QUETIAPINE FUMARATE 25MG TABLET PO SCH ×2 (13:26→21:28)
[2021-09-29] MEDS: MORPHINE SULFATE 2 MG/ML CPJ (NOT FOR IM USE) IV PRN (20:29)
[2021-09-29] MEDS: CLONIDINE 0.1MG TABLET PO PRN (22:21)
[2021-09-30] VITALS (13 sets, daily range): BP systolic 109–161; BP diastolic 52–72
[2021-09-30] MEDS: BLOOD SUGAR DIAGNOSTIC STRIP TEST SCH ×4 (00:41→18:03)
[2021-09-30] MEDS: IPRATROPIUM/ALBUTEROL 0.5-3(2.5)MG/3ML NEB HHN SCH ×6 (00:45→19:57)
[2021-09-30] MEDS: INSULIN LISPRO 100 UNITS/ML SUBCUT SCH ×4 (00:50→18:14)
[2021-09-30] MEDS: DILTIAZEM HCL 90MG TABLET PO SCH ×4 (01:00→18:13)
[2021-09-30] MEDS: MORPHINE SULFATE 2 MG/ML CPJ (NOT FOR IM USE) IV PRN (01:45)
[2021-09-30] MEDS: LORAZEPAM 2MG/ML CPJ IV PRN (02:30)
[2021-09-30] MEDS: HYDRALAZINE HCL 100MG TABLET PO SCH ×3 (06:09→22:33)
[2021-09-30 06:31] LABS: BASOPHILS % 0.9 % (0.0-2.0); EOSINOPHILS % 1.2 % (0.0-5.0); HEMATOCRIT. 22.8 % (42.0-52.0); HEMOGLOBIN. 7.5 g/dL (14.0-18.0); LYMPHOCYTES % 9.4 % (20.0-50.0); MEAN CORPUSCULAR HEMOGLOBIN 27.3 pg (28.0-32.0); MEAN CORPUSCULAR VOLUME 82.6 fL (80.0-94.0); MEAN PLATELET VOLUME 8.8 fl (7.4-10.4); MONOCYTES % 5.1 % (2.0-8.0); NEUTROPHILS % 83.4 % (40.0-76.0); PLATELET 165 x1000/uL (130-400); RED BLOOD CELL COUNT 2.76 mill/uL (4.7-6.1); RED CELL DISTRIBUTION WIDTH 15.5 % (11.6-14.6)
[2021-09-30 07:03] LABS: PHOSPHORUS 2.8 mg/dL (2.5-4.9)
[2021-09-30] MEDS: PANTOPRAZOLE SODIUM 40 MG/VIAL IV SCH ×2 (08:34→18:12)
[2021-09-30] MEDS: CALCIUM ACETATE 667MG CAPSULE PO SCH ×3 (08:34→18:12)
[2021-09-30] MEDS: RISPERIDONE 1MG TABLET PO SCH ×2 (08:34→18:13)
[2021-09-30] MEDS: QUETIAPINE FUMARATE 25MG TABLET PO SCH (08:34)
[2021-09-30] MEDS ORDERED: VANCOMYCIN 1G PREMIX 200 ML IV NR (14:00)
[2021-09-30] MEDS: DEXT 5%/0.9% NACL 1,000 ML IV SCH (14:18)
[2021-09-30] MEDS: ACETAMINOPHEN 325MG TABLET PO PRN (20:46)
[2021-10-01] VITALS (14 sets, daily range): BP systolic 103–160; BP diastolic 49–78
[2021-10-01] MEDS: BLOOD SUGAR DIAGNOSTIC STRIP TEST SCH ×5 (00:02→23:48)
[2021-10-01] MEDS: IPRATROPIUM/ALBUTEROL 0.5-3(2.5)MG/3ML NEB HHN SCH ×6 (00:03→21:32)
[2021-10-01] MEDS: INSULIN LISPRO 100 UNITS/ML SUBCUT SCH ×4 (00:04→17:15)
[2021-10-01] MEDS: DILTIAZEM HCL 90MG TABLET PO SCH ×4 (00:08→17:04)
[2021-10-01] MEDS: HYDRALAZINE HCL 100MG TABLET PO SCH ×3 (05:34→21:24)
[2021-10-01] MEDS: PANTOPRAZOLE SODIUM 40 MG/VIAL IV SCH ×2 (09:05→16:49)
[2021-10-01] MEDS: CALCIUM ACETATE 667MG CAPSULE PO SCH ×3 (09:05→17:04)
[2021-10-01] MEDS: RISPERIDONE 1MG TABLET PO SCH ×2 (09:06→16:49)
[2021-10-01 12:02] LABS: BASOPHILS % 0.5 % (0.0-2.0); EOSINOPHILS % 1.4 % (0.0-5.0); HEMATOCRIT. 21.7 % (42.0-52.0); LYMPHOCYTES % 8.6 % (20.0-50.0); MEAN CORPUSCULAR HEMOGLOBIN 26.6 pg (28.0-32.0); MEAN CORPUSCULAR VOLUME 83.4 fL (80.0-94.0); MEAN PLATELET VOLUME 8.5 fl (7.4-10.4); MONOCYTES % 4.1 % (2.0-8.0); NEUTROPHILS % 85.4 % (40.0-76.0); PLATELET 155 x1000/uL (130-400); RED CELL DISTRIBUTION WIDTH 15.8 % (11.6-14.6)
[2021-10-01 12:23] LABS: HEMOGLOBIN. 6.9 g/dL (14.0-18.0)
[2021-10-01] MEDS: DEXT 5%/0.9% NACL 1,000 ML IV SCH (16:48)
[2021-10-01 17:29] LABS: HEMATOCRIT 27.4 % (42.0-52.0); HEMOGLOBIN 8.8 g/dL (14.0-18.0)
[2021-10-01] MEDS: ATORVASTATIN CALCIUM 20MG TABLET PO SCH (20:49)
[2021-10-02] VITALS (12 sets, daily range): BP systolic 111–166; BP diastolic 55–78
[2021-10-02] MEDS: DILTIAZEM HCL 90MG TABLET PO SCH ×5 (00:01→23:14)
[2021-10-02] MEDS: IPRATROPIUM/ALBUTEROL 0.5-3(2.5)MG/3ML NEB HHN SCH ×6 (02:12→22:03)
[2021-10-02] MEDS: LORAZEPAM 2MG/ML CPJ IV PRN ×2 (05:12→12:31)
[2021-10-02] MEDS: HYDRALAZINE HCL 100MG TABLET PO SCH ×3 (05:13→21:08)
[2021-10-02] MEDS: BLOOD SUGAR DIAGNOSTIC STRIP TEST SCH ×4 (05:13→23:15)
[2021-10-02] MEDS: INSULIN LISPRO 100 UNITS/ML SUBCUT SCH ×4 (05:33→18:00)
[2021-10-02] MEDS: CALCIUM ACETATE 667MG CAPSULE PO SCH ×3 (08:13→18:00)
[2021-10-02] MEDS: PANTOPRAZOLE SODIUM 40 MG/VIAL IV SCH ×3 (08:13→21:05)
[2021-10-02] MEDS: RISPERIDONE 1MG TABLET PO SCH ×2 (08:13→16:12)
[2021-10-02] MEDS: ACETAMINOPHEN 325MG TABLET PO PRN (13:01)
[2021-10-02] MEDS: DEXT 5%/0.9% NACL 1,000 ML IV SCH (18:00)
[2021-10-02] MEDS: ATORVASTATIN CALCIUM 20MG TABLET PO SCH (20:56)
[2021-10-03] VITALS (12 sets, daily range): BP systolic 113–178; BP diastolic 53–94
[2021-10-03] MEDS: IPRATROPIUM/ALBUTEROL 0.5-3(2.5)MG/3ML NEB HHN SCH ×5 (01:33→16:06)
[2021-10-03] MEDS: BLOOD SUGAR DIAGNOSTIC STRIP TEST SCH ×4 (05:01→23:34)
[2021-10-03] MEDS: DILTIAZEM HCL 90MG TABLET PO SCH ×4 (05:01→23:49)
[2021-10-03] MEDS: HYDRALAZINE HCL 100MG TABLET PO SCH ×3 (05:01→21:09)
[2021-10-03] MEDS: INSULIN LISPRO 100 UNITS/ML SUBCUT SCH ×5 (05:08→23:35)
[2021-10-03 06:42] LABS: BASOPHILS % 0.8 % (0.0-2.0); EOSINOPHILS % 1.8 % (0.0-5.0); HEMATOCRIT. 23.2 % (42.0-52.0); HEMOGLOBIN. 7.9 g/dL (14.0-18.0); LYMPHOCYTES % 16.9 % (20.0-50.0); MEAN CORPUSCULAR HEMOGLOBIN 28.1 pg (28.0-32.0); MEAN CORPUSCULAR VOLUME 83.1 fL (80.0-94.0); MONOCYTES % 6.9 % (2.0-8.0); NEUTROPHILS % 73.6 % (40.0-76.0); PLATELET 170 x1000/uL (130-400); RED BLOOD CELL COUNT 2.79 mill/uL (4.7-6.1); RED CELL DISTRIBUTION WIDTH 16.1 % (11.6-14.6)
[2021-10-03] MEDS: DEXT 5%/0.9% NACL 1,000 ML IV SCH (07:00)
[2021-10-03 07:01] LABS: INR 1.1; PROTHROMBIN TIME 12.1 sec (9.6-11.0)
[2021-10-03 07:10] LABS: FOLIC ACID (FOLATE) SERUM 10.3 ng/mL (>5.38)
[2021-10-03] MEDS: CALCIUM ACETATE 667MG CAPSULE PO SCH ×3 (08:00→17:52)
[2021-10-03] MEDS: RISPERIDONE 1MG TABLET PO SCH ×2 (09:00→17:52)
[2021-10-03] MEDS: PANTOPRAZOLE SODIUM 40 MG/VIAL IV SCH ×2 (09:22→21:08)
[2021-10-03] MEDS: LORAZEPAM 2MG/ML CPJ IV PRN (09:37)
[2021-10-03] MEDS ORDERED: CEFAZOLIN 1000MG PREMIX 50 ML IV NR (15:00)
[2021-10-03] MEDS ORDERED: FENTANYL CITRATE/PF 50MCG/ML 2ML VIAL ONE (15:56)
[2021-10-03] MEDS ORDERED: MIDAZOLAM HCL 5 MG/5 ML VIAL ONE (15:56)
[2021-10-03] MEDS ORDERED: MIDAZOLAM HCL 5 MG/5 ML VIAL IV PRN (16:22)
[2021-10-03] MEDS ORDERED: FENTANYL CITRATE/PF 50MCG/ML 2ML VIAL IV PRN (16:23)
[2021-10-03] MEDS ORDERED: VANCOMYCIN 500MG PREMIX 100 ML IV NR (20:00)
[2021-10-03] MEDS: ATORVASTATIN CALCIUM 20MG TABLET PO SCH (21:08)
[2021-10-04] VITALS (12 sets, daily range): BP systolic 120–170; BP diastolic 53–123
[2021-10-04] MEDS: DEXT 5%/0.9% NACL 1,000 ML IV SCH ×2 (04:14→23:00)
[2021-10-04] MEDS: BLOOD SUGAR DIAGNOSTIC STRIP TEST SCH ×4 (05:29→23:59)
[2021-10-04] MEDS: INSULIN LISPRO 100 UNITS/ML SUBCUT SCH ×4 (05:30→23:58)
[2021-10-04] MEDS: HYDRALAZINE HCL 100MG TABLET PO SCH ×3 (05:37→21:51)
[2021-10-04] MEDS: DILTIAZEM HCL 90MG TABLET PO SCH ×4 (05:37→23:58)
[2021-10-04 06:23] LABS: INR 1.2; PROTHROMBIN TIME 12.6 sec (9.6-11.0)
[2021-10-04] MEDS: PANTOPRAZOLE SODIUM 40 MG/VIAL IV SCH ×2 (08:30→21:50)
[2021-10-04] MEDS: RISPERIDONE 1MG TABLET PO SCH ×2 (08:30→17:24)
[2021-10-04] MEDS: CALCIUM ACETATE 667MG CAPSULE PO SCH ×3 (08:30→17:24)
[2021-10-04 09:54] LABS: BASOPHILS % 0.9 % (0.0-2.0); EOSINOPHILS % 1.5 % (0.0-5.0); HEMATOCRIT. 24.6 % (42.0-52.0); HEMOGLOBIN. 8.1 g/dL (14.0-18.0); LYMPHOCYTES % 14.7 % (20.0-50.0); MEAN CORPUSCULAR HEMOGLOBIN 27.6 pg (28.0-32.0); MEAN CORPUSCULAR VOLUME 83.3 fL (80.0-94.0); MEAN PLATELET VOLUME 8.5 fl (7.4-10.4); MONOCYTES % 5.7 % (2.0-8.0); NEUTROPHILS % 77.2 % (40.0-76.0); PLATELET 179 x1000/uL (130-400); RED BLOOD CELL COUNT 2.95 mill/uL (4.7-6.1); RED CELL DISTRIBUTION WIDTH 16.3 % (11.6-14.6)
[2021-10-04] MEDS ORDERED: LACTULOSE 20G/30ML UDC PO NR (21:00)
[2021-10-04] MEDS: ATORVASTATIN CALCIUM 20MG TABLET PO SCH (21:51)
[2021-10-04] MEDS ORDERED: METOCLOPRAMIDE 10MG/10 ML UDC PO PRN (22:00)
[2021-10-04] MEDS: LORAZEPAM 2MG/ML CPJ IV PRN (22:20)
[2021-10-04] MEDS: METOCLOPRAMIDE HCL 10MG/2ML VIAL IV SCH (23:57)
[2021-10-05] VITALS (12 sets, daily range): BP systolic 107–178; BP diastolic 58–87
[2021-10-05] MEDS: METOCLOPRAMIDE HCL 10MG/2ML VIAL IV SCH ×3 (05:40→17:25)
[2021-10-05] MEDS: HYDRALAZINE HCL 100MG TABLET PO SCH ×3 (05:40→22:00)
[2021-10-05] MEDS: INSULIN LISPRO 100 UNITS/ML SUBCUT SCH ×3 (05:41→17:27)
[2021-10-05] MEDS: BLOOD SUGAR DIAGNOSTIC STRIP TEST SCH ×3 (05:41→17:11)
[2021-10-05] MEDS: DILTIAZEM HCL 90MG TABLET PO SCH ×4 (05:41→17:26)
[2021-10-05] MEDS: CALCIUM ACETATE 667MG CAPSULE PO SCH ×3 (08:51→17:26)
[2021-10-05] MEDS: RISPERIDONE 1MG TABLET PO SCH ×2 (08:51→17:26)
[2021-10-05] MEDS: POLYETHYLENE GLYCOL 3350 (17GM) 1 DOSE PACK PO SCH (08:51)
[2021-10-05] MEDS: PANTOPRAZOLE SODIUM 40 MG/VIAL IV SCH ×2 (08:56→21:04)
[2021-10-05 13:05] LABS: BG BASE EXCESS 0.2 mmol/L (-2.0-2.0); BG CARBOXYHEMOGLOBIN 0.1 % (0.5-1.5); BG DEOXYHEMOGLOBIN 1.3 % (0.0-5.0); BG FRACTION INSPIRED OXYGEN 40; BG HCO3 ACT 23.9 mmol/L (22.0-26.0); BG METHEMOGLOBIN 0.2 % (0.0-1.5); BG OXYGEN SATURATION 98.7 % (92.0-98.5); BG OXYHEMOGLOBIN 98.4 % (94.0-97.0); BG PCO2 34.1 mmHg (35.0-45.0); BG PH 7.463 (7.350-7.450); BG PO2 162.5 mmHg (75.0-100.0); BG SAMPLE SITE RIGHT RADIAL; BG TOTAL HEMOGLOBIN 7.9 g/dL (12.0-18.0); BG VENT MODE VENT - SIMV/VC
[2021-10-05] MEDS: LORAZEPAM 2MG/ML CPJ IV PRN (14:21)
[2021-10-05] MEDS ORDERED: VANCOMYCIN 500MG PREMIX 100 ML IV NR (18:00)
[2021-10-05] MEDS: EPOETIN ALFA-EPBX 10,000 UNIT/ML VIAL SUBCUT SCH (21:04)
[2021-10-05] MEDS: ATORVASTATIN CALCIUM 20MG TABLET PO SCH (21:04)
[2021-10-05] MEDS: DEXT 5%/0.9% NACL 1,000 ML IV SCH (21:06)
[2021-10-06] VITALS (12 sets, daily range): BP systolic 103–155; BP diastolic 55–129
[2021-10-06] MEDS: BLOOD SUGAR DIAGNOSTIC STRIP TEST SCH ×4 (00:08→17:36)
[2021-10-06] MEDS: METOCLOPRAMIDE HCL 10MG/2ML VIAL IV SCH ×5 (00:13→23:21)
[2021-10-06] MEDS: LORAZEPAM 2MG/ML CPJ IV PRN ×3 (02:02→21:54)
[2021-10-06] MEDS: INSULIN LISPRO 100 UNITS/ML SUBCUT SCH ×4 (05:41→18:35)
[2021-10-06] MEDS: DILTIAZEM HCL 90MG TABLET PO SCH ×5 (06:04→23:19)
[2021-10-06] MEDS: HYDRALAZINE HCL 100MG TABLET PO SCH ×3 (06:05→21:53)
[2021-10-06] MEDS: PANTOPRAZOLE SODIUM 40 MG/VIAL IV SCH ×2 (08:56→20:15)
[2021-10-06] MEDS: POLYETHYLENE GLYCOL 3350 (17GM) 1 DOSE PACK PO SCH (08:56)
[2021-10-06] MEDS: RISPERIDONE 1MG TABLET PO SCH ×2 (08:56→17:13)
[2021-10-06] MEDS: CALCIUM ACETATE 667MG CAPSULE PO SCH ×3 (08:56→17:13)
[2021-10-06] MEDS: ACETAMINOPHEN 325MG TABLET PO PRN ×3 (12:18→20:14)
[2021-10-06] MEDS: DEXT 5%/0.9% NACL 1,000 ML IV SCH (17:14)
[2021-10-06] MEDS: ATORVASTATIN CALCIUM 20MG TABLET PO SCH (20:15)
[2021-10-07] VITALS (20 sets, daily range): BP systolic 45–186; BP diastolic 37–90
[2021-10-07] MEDS: DILTIAZEM HCL 90MG TABLET PO SCH ×4 (05:02→23:52)
[2021-10-07] MEDS: HYDRALAZINE HCL 100MG TABLET PO SCH ×3 (05:02→21:18)
[2021-10-07] MEDS: LORAZEPAM 2MG/ML CPJ IV PRN ×3 (05:03→21:18)
[2021-10-07] MEDS: METOCLOPRAMIDE HCL 10MG/2ML VIAL IV SCH ×4 (05:05→23:51)
[2021-10-07] MEDS: BLOOD SUGAR DIAGNOSTIC STRIP TEST SCH ×4 (06:00→17:53)
[2021-10-07] MEDS: INSULIN LISPRO 100 UNITS/ML SUBCUT SCH ×5 (06:59→23:49)
[2021-10-07] MEDS ORDERED: IPRATROPIUM/ALBUTEROL 0.5-3(2.5)MG/3ML NEB HHN PRN (09:30)
[2021-10-07] MEDS: CALCIUM ACETATE 667MG CAPSULE PO SCH ×3 (09:37→17:56)
[2021-10-07] MEDS: PANTOPRAZOLE SODIUM 40 MG/VIAL IV SCH ×2 (09:37→21:17)
[2021-10-07] MEDS: RISPERIDONE 1MG TABLET PO SCH ×2 (09:39→17:06)
[2021-10-07] MEDS: POLYETHYLENE GLYCOL 3350 (17GM) 1 DOSE PACK PO SCH (09:39)
[2021-10-07] MEDS: GUAIFENESIN 200MG/10ML SUGAR FREE UDC PO SCH ×3 (10:00→17:56)
[2021-10-07] MEDS: DEXT 5%/0.9% NACL 1,000 ML IV SCH (11:00)
[2021-10-07 15:55] LABS: BASOPHILS % 0.5 % (0.0-2.0); EOSINOPHILS % 1.4 % (0.0-5.0); HEMATOCRIT. 24.7 % (42.0-52.0); HEMOGLOBIN. 8.1 g/dL (14.0-18.0); LYMPHOCYTES % 19.5 % (20.0-50.0); MEAN CORPUSCULAR HEMOGLOBIN 27.2 pg (28.0-32.0); MEAN PLATELET VOLUME 8.3 fl (7.4-10.4); MONOCYTES % 6.1 % (2.0-8.0); NEUTROPHILS % 72.5 % (40.0-76.0); PLATELET 200 x1000/uL (130-400); RED BLOOD CELL COUNT 2.98 mill/uL (4.7-6.1); RED CELL DISTRIBUTION WIDTH 16.4 % (11.6-14.6)
[2021-10-07] MEDS: IPRATROPIUM/ALBUTEROL 0.5-3(2.5)MG/3ML NEB HHN SCH ×2 (17:01→19:59)
[2021-10-07] MEDS: ACETYLCYSTEINE 100MG/ML 10% VIAL 4ML INH SCH (17:01)
[2021-10-07] MEDS: ATORVASTATIN CALCIUM 20MG TABLET PO SCH (21:17)
[2021-10-07] MEDS: ACETAMINOPHEN 325MG TABLET PO PRN (21:19)
[2021-10-08] VITALS (12 sets, daily range): BP systolic 119–173; BP diastolic 58–83
[2021-10-08] MEDS: IPRATROPIUM/ALBUTEROL 0.5-3(2.5)MG/3ML NEB HHN SCH ×6 (00:06→17:12)
[2021-10-08] MEDS: ACETYLCYSTEINE 100MG/ML 10% VIAL 4ML INH SCH ×3 (00:06→17:12)
[2021-10-08] MEDS: BLOOD SUGAR DIAGNOSTIC STRIP TEST SCH ×5 (00:13→23:53)
[2021-10-08] MEDS: GUAIFENESIN 200MG/10ML SUGAR FREE UDC PO SCH ×5 (00:17→23:51)
[2021-10-08] MEDS: METOCLOPRAMIDE HCL 10MG/2ML VIAL IV SCH ×4 (05:55→23:51)
[2021-10-08] MEDS: DILTIAZEM HCL 90MG TABLET PO SCH ×4 (05:56→23:52)
[2021-10-08] MEDS: HYDRALAZINE HCL 100MG TABLET PO SCH ×3 (05:56→22:17)
[2021-10-08] MEDS: INSULIN LISPRO 100 UNITS/ML SUBCUT SCH ×3 (06:13→17:49)
[2021-10-08] MEDS: DEXT 5%/0.9% NACL 1,000 ML IV SCH (08:38)
[2021-10-08] MEDS: POLYETHYLENE GLYCOL 3350 (17GM) 1 DOSE PACK PO SCH (08:38)
[2021-10-08] MEDS: LORAZEPAM 2MG/ML CPJ IV PRN ×3 (08:39→22:15)
[2021-10-08] MEDS: RISPERIDONE 1MG TABLET PO SCH ×2 (08:39→17:35)
[2021-10-08] MEDS: PANTOPRAZOLE SODIUM 40 MG/VIAL IV SCH ×2 (08:39→20:53)
[2021-10-08] MEDS: ACETAMINOPHEN 325MG TABLET PO PRN ×2 (08:39→15:31)
[2021-10-08] MEDS: CALCIUM ACETATE 667MG CAPSULE PO SCH ×3 (08:40→17:36)
[2021-10-08] MEDS: ATORVASTATIN CALCIUM 20MG TABLET PO SCH (20:53)
[2021-10-08] MEDS: EPOETIN ALFA-EPBX 10,000 UNIT/ML VIAL SUBCUT SCH (20:54)
[2021-10-09] VITALS (12 sets, daily range): BP systolic 120–162; BP diastolic 50–80
[2021-10-09] MEDS: ACETYLCYSTEINE 100MG/ML 10% VIAL 4ML INH SCH ×2 (00:25→23:38)
[2021-10-09] MEDS: IPRATROPIUM/ALBUTEROL 0.5-3(2.5)MG/3ML NEB HHN SCH ×7 (00:35→23:37)
[2021-10-09] MEDS: METOCLOPRAMIDE HCL 10MG/2ML VIAL IV SCH ×4 (05:01→23:06)
[2021-10-09] MEDS: GUAIFENESIN 200MG/10ML SUGAR FREE UDC PO SCH ×4 (05:01→23:06)
[2021-10-09] MEDS: DILTIAZEM HCL 90MG TABLET PO SCH ×4 (05:02→23:06)
[2021-10-09] MEDS: HYDRALAZINE HCL 100MG TABLET PO SCH ×3 (05:02→21:09)
[2021-10-09] MEDS: BLOOD SUGAR DIAGNOSTIC STRIP TEST SCH ×4 (05:02→20:25)
[2021-10-09] MEDS: DEXT 5%/0.9% NACL 1,000 ML IV SCH ×2 (05:03→23:07)
[2021-10-09] MEDS: INSULIN LISPRO 100 UNITS/ML SUBCUT SCH ×5 (05:09→20:29)
[2021-10-09 06:09] LABS: BASOPHILS % 0.4 % (0.0-2.0); EOSINOPHILS % 3.3 % (0.0-5.0); HEMATOCRIT. 22.4 % (42.0-52.0); HEMOGLOBIN. 7.5 g/dL (14.0-18.0); LYMPHOCYTES % 21.1 % (20.0-50.0); MEAN CORPUSCULAR HEMOGLOBIN 27.8 pg (28.0-32.0); MEAN CORPUSCULAR VOLUME 82.8 fL (80.0-94.0); MEAN PLATELET VOLUME 8.4 fl (7.4-10.4); MONOCYTES % 7.5 % (2.0-8.0); NEUTROPHILS % 67.7 % (40.0-76.0); PLATELET 190 x1000/uL (130-400)
[2021-10-09] MEDS: LORAZEPAM 2MG/ML CPJ IV PRN ×3 (08:34→22:20)
[2021-10-09] MEDS: RISPERIDONE 1MG TABLET PO SCH ×2 (08:34→16:42)
[2021-10-09] MEDS: PANTOPRAZOLE SODIUM 40 MG/VIAL IV SCH ×2 (08:34→20:25)
[2021-10-09] MEDS: POLYETHYLENE GLYCOL 3350 (17GM) 1 DOSE PACK PO SCH (08:34)
[2021-10-09] MEDS: CALCIUM ACETATE 667MG CAPSULE PO SCH ×3 (08:35→17:12)
[2021-10-09] MEDS: ACETAMINOPHEN 325MG TABLET PO PRN (13:52)
[2021-10-09] MEDS: ATORVASTATIN CALCIUM 20MG TABLET PO SCH (20:25)
[2021-10-10] VITALS (15 sets, daily range): BP systolic 125–184; BP diastolic 55–134
[2021-10-10] MEDS: IPRATROPIUM/ALBUTEROL 0.5-3(2.5)MG/3ML NEB HHN SCH ×5 (03:10→20:41)
[2021-10-10] MEDS: GUAIFENESIN 200MG/10ML SUGAR FREE UDC PO SCH ×5 (05:00→23:19)
[2021-10-10] MEDS: METOCLOPRAMIDE HCL 10MG/2ML VIAL IV SCH ×4 (05:00→23:17)
[2021-10-10] MEDS: HYDRALAZINE HCL 100MG TABLET PO SCH ×3 (05:01→17:51)
[2021-10-10] MEDS: DILTIAZEM HCL 90MG TABLET PO SCH ×4 (05:01→23:18)
[2021-10-10 05:47] LABS: BASOPHILS % 0.8 % (0.0-2.0); EOSINOPHILS % 2.2 % (0.0-5.0); HEMATOCRIT. 21.5 % (42.0-52.0); HEMOGLOBIN. 7.3 g/dL (14.0-18.0); LYMPHOCYTES % 17.5 % (20.0-50.0); MEAN CORPUSCULAR HEMOGLOBIN 28.1 pg (28.0-32.0); MEAN CORPUSCULAR VOLUME 82.7 fL (80.0-94.0); MEAN PLATELET VOLUME 8.3 fl (7.4-10.4); MONOCYTES % 6.8 % (2.0-8.0); NEUTROPHILS % 72.7 % (40.0-76.0); PLATELET 195 x1000/uL (130-400)
[2021-10-10] MEDS: BLOOD SUGAR DIAGNOSTIC STRIP TEST SCH ×4 (07:30→20:44)
[2021-10-10] MEDS: CALCIUM ACETATE 667MG CAPSULE PO SCH ×3 (08:00→17:52)
[2021-10-10] MEDS: INSULIN LISPRO 100 UNITS/ML SUBCUT SCH ×4 (08:00→20:54)
[2021-10-10] MEDS: ACETYLCYSTEINE 100MG/ML 10% VIAL 4ML INH SCH ×2 (09:12→17:03)
[2021-10-10] MEDS: RISPERIDONE 1MG TABLET PO SCH ×2 (09:35→17:55)
[2021-10-10] MEDS: POLYETHYLENE GLYCOL 3350 (17GM) 1 DOSE PACK PO SCH (09:35)
[2021-10-10] MEDS: PANTOPRAZOLE SODIUM 40 MG/VIAL IV SCH ×2 (09:35→20:42)
[2021-10-10] MEDS: LORAZEPAM 2MG/ML CPJ IV PRN ×2 (15:38→22:36)
[2021-10-10 19:47] LABS: HEMATOCRIT 23.6 % (42.0-52.0); HEMOGLOBIN 7.7 g/dL (14.0-18.0)
[2021-10-10 19:57] LABS: INR 1.2; PROTHROMBIN TIME 12.4 sec (9.6-11.0)
[2021-10-10] MEDS: ATORVASTATIN CALCIUM 20MG TABLET PO SCH (20:42)
[2021-10-10] MEDS: EPOETIN ALFA-EPBX 10,000 UNIT/ML VIAL SUBCUT SCH (20:44)
[2021-10-11] VITALS (13 sets, daily range): BP systolic 139–167; BP diastolic 63–80
[2021-10-11] MEDS: IPRATROPIUM/ALBUTEROL 0.5-3(2.5)MG/3ML NEB HHN SCH ×6 (00:16→20:52)
[2021-10-11] MEDS: ACETYLCYSTEINE 100MG/ML 10% VIAL 4ML INH SCH ×3 (00:23→16:51)
[2021-10-11] MEDS: GUAIFENESIN 200MG/10ML SUGAR FREE UDC PO SCH ×3 (05:14→17:14)
[2021-10-11] MEDS: DILTIAZEM HCL 90MG TABLET PO SCH ×3 (05:14→17:15)
[2021-10-11] MEDS: METOCLOPRAMIDE HCL 10MG/2ML VIAL IV SCH ×3 (05:14→17:15)
[2021-10-11] MEDS: CLONIDINE 0.1MG TABLET PO PRN (05:18)
[2021-10-11] MEDS: HYDRALAZINE HCL 100MG TABLET PO SCH ×3 (05:19→21:44)
[2021-10-11 06:23] LABS: BASOPHILS % 0.6 % (0.0-2.0); EOSINOPHILS % 2.2 % (0.0-5.0); HEMATOCRIT. 25.4 % (42.0-52.0); HEMOGLOBIN. 8.6 g/dL (14.0-18.0); LYMPHOCYTES % 18.3 % (20.0-50.0); MEAN CORPUSCULAR HEMOGLOBIN 28.2 pg (28.0-32.0); MEAN CORPUSCULAR VOLUME 83.7 fL (80.0-94.0); MEAN PLATELET VOLUME 7.9 fl (7.4-10.4); MONOCYTES % 7.7 % (2.0-8.0); NEUTROPHILS % 71.2 % (40.0-76.0); PLATELET 213 x1000/uL (130-400); RED BLOOD CELL COUNT 3.03 mill/uL (4.7-6.1)
[2021-10-11 06:35] LABS: INR 1.1; PROTHROMBIN TIME 12.1 sec (9.6-11.0)
[2021-10-11 07:02] LABS: PHOSPHORUS 2.4 mg/dL (2.5-4.9)
[2021-10-11] MEDS: INSULIN LISPRO 100 UNITS/ML SUBCUT SCH ×4 (08:00→21:00)
[2021-10-11] MEDS: RISPERIDONE 1MG TABLET PO SCH ×2 (08:26→17:15)
[2021-10-11] MEDS: PANTOPRAZOLE SODIUM 40 MG/VIAL IV SCH ×2 (08:26→21:44)
[2021-10-11] MEDS: CALCIUM ACETATE 667MG CAPSULE PO SCH ×3 (08:26→17:20)
[2021-10-11] MEDS: POLYETHYLENE GLYCOL 3350 (17GM) 1 DOSE PACK PO SCH (08:26)
[2021-10-11] MEDS: BLOOD SUGAR DIAGNOSTIC STRIP TEST SCH ×4 (08:27→21:43)
[2021-10-11] MEDS: LOSARTAN POTASSIUM 50 MG TABLET PO SCH (11:07)
[2021-10-11] MEDS: ACETAMINOPHEN 325MG TABLET PO PRN ×2 (12:31→18:37)
[2021-10-11] MEDS: ATORVASTATIN CALCIUM 20MG TABLET PO SCH (21:43)
[2021-10-11] MEDS: LORAZEPAM 2MG/ML CPJ IV PRN (21:44)
[2021-10-12] VITALS (12 sets, daily range): BP systolic 120–166; BP diastolic 59–79
[2021-10-12] MEDS: METOCLOPRAMIDE HCL 10MG/2ML VIAL IV SCH ×4 (00:09→17:41)
[2021-10-12] MEDS: DILTIAZEM HCL 90MG TABLET PO SCH ×4 (00:09→17:41)
[2021-10-12] MEDS: GUAIFENESIN 200MG/10ML SUGAR FREE UDC PO SCH ×4 (00:09→17:41)
[2021-10-12] MEDS: ACETYLCYSTEINE 100MG/ML 10% VIAL 4ML INH SCH ×2 (00:13→08:21)
[2021-10-12] MEDS: IPRATROPIUM/ALBUTEROL 0.5-3(2.5)MG/3ML NEB HHN SCH ×6 (00:13→21:19)
[2021-10-12] MEDS: HYDRALAZINE HCL 100MG TABLET PO SCH ×3 (05:21→20:38)
[2021-10-12 06:42] LABS: BASOPHILS % 0.8 % (0.0-2.0); EOSINOPHILS % 2.8 % (0.0-5.0); HEMATOCRIT. 25.1 % (42.0-52.0); HEMOGLOBIN. 8.6 g/dL (14.0-18.0); LYMPHOCYTES % 18.7 % (20.0-50.0); MEAN CORPUSCULAR HEMOGLOBIN 28.8 pg (28.0-32.0); MEAN PLATELET VOLUME 8.1 fl (7.4-10.4); MONOCYTES % 8.6 % (2.0-8.0); NEUTROPHILS % 69.1 % (40.0-76.0); PLATELET 212 x1000/uL (130-400); RED BLOOD CELL COUNT 2.99 mill/uL (4.7-6.1); RED CELL DISTRIBUTION WIDTH 16.9 % (11.6-14.6)
[2021-10-12] MEDS: BLOOD SUGAR DIAGNOSTIC STRIP TEST SCH ×4 (08:01→20:38)
[2021-10-12] MEDS: LOSARTAN POTASSIUM 50 MG TABLET PO SCH (08:25)
[2021-10-12] MEDS: POLYETHYLENE GLYCOL 3350 (17GM) 1 DOSE PACK PO SCH (08:26)
[2021-10-12] MEDS: CALCIUM ACETATE 667MG CAPSULE PO SCH ×3 (08:26→17:41)
[2021-10-12] MEDS: RISPERIDONE 1MG TABLET PO SCH ×2 (08:26→17:41)
[2021-10-12] MEDS: PANTOPRAZOLE SODIUM 40 MG/VIAL IV SCH ×2 (08:26→20:38)
[2021-10-12] MEDS: INSULIN LISPRO 100 UNITS/ML SUBCUT SCH ×4 (08:27→21:00)
[2021-10-12] MEDS: ATORVASTATIN CALCIUM 20MG TABLET PO SCH (20:38)
[2021-10-12] MEDS: LORAZEPAM 2MG/ML CPJ IV PRN (22:09)
[2021-10-13] VITALS (12 sets, daily range): BP systolic 113–166; BP diastolic 29–103
[2021-10-13] MEDS: GUAIFENESIN 200MG/10ML SUGAR FREE UDC PO SCH ×5 (00:27→23:45)
[2021-10-13] MEDS: METOCLOPRAMIDE HCL 10MG/2ML VIAL IV SCH ×5 (00:28→23:45)
[2021-10-13] MEDS: IPRATROPIUM/ALBUTEROL 0.5-3(2.5)MG/3ML NEB HHN SCH ×6 (01:15→20:43)
[2021-10-13] MEDS: DILTIAZEM HCL 90MG TABLET PO SCH ×6 (03:23→23:45)
[2021-10-13] MEDS: HYDRALAZINE HCL 100MG TABLET PO SCH ×3 (05:25→21:09)
[2021-10-13 07:28] LABS: BASOPHILS % 0.7 % (0.0-2.0); EOSINOPHILS % 0.9 % (0.0-5.0); HEMATOCRIT. 27.4 % (42.0-52.0); HEMOGLOBIN. 9.2 g/dL (14.0-18.0); LYMPHOCYTES % 20.2 % (20.0-50.0); MEAN CORPUSCULAR HEMOGLOBIN 28.4 pg (28.0-32.0); MEAN CORPUSCULAR VOLUME 84.4 fL (80.0-94.0); MEAN PLATELET VOLUME 7.7 fl (7.4-10.4); MONOCYTES % 7.1 % (2.0-8.0); NEUTROPHILS % 71.1 % (40.0-76.0); PLATELET 215 x1000/uL (130-400); RED BLOOD CELL COUNT 3.24 mill/uL (4.7-6.1); RED CELL DISTRIBUTION WIDTH 17.3 % (11.6-14.6)
[2021-10-13] MEDS: BLOOD SUGAR DIAGNOSTIC STRIP TEST SCH ×4 (07:59→21:09)
[2021-10-13] MEDS: RISPERIDONE 1MG TABLET PO SCH ×2 (08:43→16:45)
[2021-10-13] MEDS: POLYETHYLENE GLYCOL 3350 (17GM) 1 DOSE PACK PO SCH (08:43)
[2021-10-13] MEDS: LOSARTAN POTASSIUM 50 MG TABLET PO SCH ×2 (08:43→21:09)
[2021-10-13] MEDS: PANTOPRAZOLE SODIUM 40 MG/VIAL IV SCH ×2 (08:43→21:08)
[2021-10-13] MEDS: CALCIUM ACETATE 667MG CAPSULE PO SCH ×3 (08:43→17:06)
[2021-10-13] MEDS: INSULIN LISPRO 100 UNITS/ML SUBCUT SCH ×4 (08:47→21:13)
[2021-10-13] MEDS: LORAZEPAM 2MG/ML CPJ IV PRN (18:09)
[2021-10-13] MEDS: ATORVASTATIN CALCIUM 20MG TABLET PO SCH (21:09)
[2021-10-14] VITALS (13 sets, daily range): BP systolic 113–169; BP diastolic 55–100
[2021-10-14] MEDS: IPRATROPIUM/ALBUTEROL 0.5-3(2.5)MG/3ML NEB HHN SCH ×6 (00:24→20:40)
[2021-10-14] MEDS: LORAZEPAM 2MG/ML CPJ IV PRN ×2 (02:14→18:30)
[2021-10-14] MEDS: GUAIFENESIN 200MG/10ML SUGAR FREE UDC PO SCH ×4 (05:34→23:17)
[2021-10-14] MEDS: HYDRALAZINE HCL 100MG TABLET PO SCH ×3 (05:34→21:07)
[2021-10-14] MEDS: DILTIAZEM HCL 90MG TABLET PO SCH ×4 (05:34→23:17)
[2021-10-14] MEDS: METOCLOPRAMIDE HCL 10MG/2ML VIAL IV SCH ×4 (05:35→23:17)
[2021-10-14 06:02] LABS: BASOPHILS % 0.6 % (0.0-2.0); EOSINOPHILS % 0.9 % (0.0-5.0); HEMATOCRIT. 26.4 % (42.0-52.0); LYMPHOCYTES % 12.6 % (20.0-50.0); MEAN CORPUSCULAR HEMOGLOBIN 28.6 pg (28.0-32.0); MEAN CORPUSCULAR VOLUME 84.2 fL (80.0-94.0); MONOCYTES % 7.6 % (2.0-8.0); NEUTROPHILS % 78.3 % (40.0-76.0); PLATELET 204 x1000/uL (130-400); RED BLOOD CELL COUNT 3.14 mill/uL (4.7-6.1); RED CELL DISTRIBUTION WIDTH 17.5 % (11.6-14.6)
[2021-10-14] MEDS: INSULIN LISPRO 100 UNITS/ML SUBCUT SCH ×4 (08:00→20:51)
[2021-10-14] MEDS: BLOOD SUGAR DIAGNOSTIC STRIP TEST SCH ×4 (08:23→20:50)
[2021-10-14] MEDS: PANTOPRAZOLE SODIUM 40 MG/VIAL IV SCH ×2 (08:48→21:07)
[2021-10-14] MEDS: CALCIUM ACETATE 667MG CAPSULE PO SCH ×3 (08:48→17:07)
[2021-10-14] MEDS: POLYETHYLENE GLYCOL 3350 (17GM) 1 DOSE PACK PO SCH (08:48)
[2021-10-14] MEDS: RISPERIDONE 1MG TABLET PO SCH ×2 (08:48→17:07)
[2021-10-14] MEDS: LOSARTAN POTASSIUM 50 MG TABLET PO SCH ×2 (08:48→21:06)
[2021-10-14] MEDS: ATORVASTATIN CALCIUM 20MG TABLET PO SCH (21:06)
[2021-10-15] VITALS (11 sets, daily range): BP systolic 124–177; BP diastolic 56–91
[2021-10-15] MEDS: IPRATROPIUM/ALBUTEROL 0.5-3(2.5)MG/3ML NEB HHN SCH ×7 (00:50→23:50)
[2021-10-15] MEDS: METOCLOPRAMIDE HCL 10MG/2ML VIAL IV SCH ×4 (05:06→23:07)
[2021-10-15] MEDS: GUAIFENESIN 200MG/10ML SUGAR FREE UDC PO SCH ×4 (05:06→23:07)
[2021-10-15] MEDS: HYDRALAZINE HCL 100MG TABLET PO SCH ×3 (05:06→22:10)
[2021-10-15] MEDS: DILTIAZEM HCL 90MG TABLET PO SCH ×4 (05:06→23:07)
[2021-10-15] MEDS: BLOOD SUGAR DIAGNOSTIC STRIP TEST SCH ×4 (07:30→22:11)
[2021-10-15] MEDS: INSULIN LISPRO 100 UNITS/ML SUBCUT SCH ×4 (08:00→22:18)
[2021-10-15] MEDS: PANTOPRAZOLE SODIUM 40 MG/VIAL IV SCH ×2 (09:15→22:10)
[2021-10-15] MEDS: RISPERIDONE 1MG TABLET PO SCH ×2 (09:15→18:01)
[2021-10-15] MEDS: LOSARTAN POTASSIUM 50 MG TABLET PO SCH ×2 (09:15→22:10)
[2021-10-15] MEDS: CALCIUM ACETATE 667MG CAPSULE PO SCH ×3 (09:15→18:01)
[2021-10-15] MEDS: POLYETHYLENE GLYCOL 3350 (17GM) 1 DOSE PACK PO SCH (09:17)
[2021-10-15] MEDS: ATORVASTATIN CALCIUM 20MG TABLET PO SCH (22:10)
[2021-10-16] VITALS (13 sets, daily range): BP systolic 109–168; BP diastolic 52–83
[2021-10-16] MEDS: LORAZEPAM 2MG/ML CPJ IV PRN ×4 (00:34→21:27)
[2021-10-16] MEDS: IPRATROPIUM/ALBUTEROL 0.5-3(2.5)MG/3ML NEB HHN SCH ×5 (04:53→20:18)
[2021-10-16] MEDS: GUAIFENESIN 200MG/10ML SUGAR FREE UDC PO SCH ×4 (05:35→23:46)
[2021-10-16] MEDS: METOCLOPRAMIDE HCL 10MG/2ML VIAL IV SCH ×4 (05:36→23:46)
[2021-10-16] MEDS: DILTIAZEM HCL 90MG TABLET PO SCH ×4 (05:38→23:46)
[2021-10-16] MEDS: HYDRALAZINE HCL 100MG TABLET PO SCH ×3 (05:38→21:27)
[2021-10-16 05:58] LABS: HEMATOCRIT. 27.4 % (42.0-52.0); MEAN CORPUSCULAR HEMOGLOBIN 27.9 pg (28.0-32.0); MEAN CORPUSCULAR VOLUME 85.5 fL (80.0-94.0); MEAN PLATELET VOLUME 7.9 fl (7.4-10.4); PLATELET 206 x1000/uL (130-400); RED BLOOD CELL COUNT 3.21 mill/uL (4.7-6.1); RED CELL DISTRIBUTION WIDTH 18.7 % (11.6-14.6)
[2021-10-16] MEDS: BLOOD SUGAR DIAGNOSTIC STRIP TEST SCH ×4 (07:45→21:00)
[2021-10-16] MEDS: POLYETHYLENE GLYCOL 3350 (17GM) 1 DOSE PACK PO SCH (08:33)
[2021-10-16] MEDS: LOSARTAN POTASSIUM 50 MG TABLET PO SCH ×2 (08:33→21:27)
[2021-10-16] MEDS: RISPERIDONE 1MG TABLET PO SCH ×2 (08:33→18:54)
[2021-10-16] MEDS: CALCIUM ACETATE 667MG CAPSULE PO SCH (08:33)
[2021-10-16] MEDS: PANTOPRAZOLE SODIUM 40 MG/VIAL IV SCH ×2 (08:34→21:27)
[2021-10-16] MEDS: INSULIN LISPRO 100 UNITS/ML SUBCUT SCH ×4 (08:35→22:17)
[2021-10-16 13:09] LABS: PLATELET ESTIMATE NORMAL
[2021-10-16] MEDS: ATORVASTATIN CALCIUM 20MG TABLET PO SCH (21:27)
[2021-10-17] VITALS (11 sets, daily range): BP systolic 121–168; BP diastolic 59–84
[2021-10-17] MEDS: IPRATROPIUM/ALBUTEROL 0.5-3(2.5)MG/3ML NEB HHN SCH ×4 (00:20→20:57)
[2021-10-17] MEDS: HYDRALAZINE HCL 100MG TABLET PO SCH ×3 (06:00→21:53)
[2021-10-17] MEDS: DILTIAZEM HCL 90MG TABLET PO SCH ×4 (06:00→23:47)
[2021-10-17] MEDS: GUAIFENESIN 200MG/10ML SUGAR FREE UDC PO SCH ×4 (06:50→23:47)
[2021-10-17] MEDS: METOCLOPRAMIDE HCL 10MG/2ML VIAL IV SCH ×4 (06:50→23:47)
[2021-10-17] MEDS: INSULIN LISPRO 100 UNITS/ML SUBCUT SCH ×4 (07:43→21:58)
[2021-10-17] MEDS: BLOOD SUGAR DIAGNOSTIC STRIP TEST SCH ×4 (07:43→21:53)
[2021-10-17] MEDS: PANTOPRAZOLE SODIUM 40 MG/VIAL IV SCH ×2 (08:32→21:52)
[2021-10-17] MEDS: RISPERIDONE 1MG TABLET PO SCH ×2 (08:32→17:37)
[2021-10-17] MEDS: POLYETHYLENE GLYCOL 3350 (17GM) 1 DOSE PACK PO SCH (08:32)
[2021-10-17] MEDS: LOSARTAN POTASSIUM 50 MG TABLET PO SCH ×2 (08:32→21:52)
[2021-10-17] MEDS: LORAZEPAM 2MG/ML CPJ IV PRN (21:52)
[2021-10-17] MEDS: ATORVASTATIN CALCIUM 20MG TABLET PO SCH (21:53)
[2021-10-18] VITALS (12 sets, daily range): BP systolic 109–149; BP diastolic 57–80
[2021-10-18] MEDS: IPRATROPIUM/ALBUTEROL 0.5-3(2.5)MG/3ML NEB HHN SCH ×7 (00:45→23:55)
[2021-10-18] MEDS: DILTIAZEM HCL 90MG TABLET PO SCH ×4 (05:09→23:13)
[2021-10-18] MEDS: HYDRALAZINE HCL 100MG TABLET PO SCH ×3 (05:10→21:34)
[2021-10-18] MEDS: METOCLOPRAMIDE HCL 10MG/2ML VIAL IV SCH ×4 (05:10→23:13)
[2021-10-18] MEDS: GUAIFENESIN 200MG/10ML SUGAR FREE UDC PO SCH ×4 (05:12→23:13)
[2021-10-18 06:58] LABS: EOSINOPHILS % 3.7 % (0.0-5.0); HEMATOCRIT. 22.2 % (42.0-52.0); HEMOGLOBIN. 7.5 g/dL (14.0-18.0); LYMPHOCYTES % 19.4 % (20.0-50.0); MEAN CORPUSCULAR HEMOGLOBIN 28.8 pg (28.0-32.0); MEAN CORPUSCULAR VOLUME 85.1 fL (80.0-94.0); MEAN PLATELET VOLUME 7.9 fl (7.4-10.4); MONOCYTES % 9.7 % (2.0-8.0); NEUTROPHILS % 66.2 % (40.0-76.0); PLATELET 163 x1000/uL (130-400); RED BLOOD CELL COUNT 2.61 mill/uL (4.7-6.1); RED CELL DISTRIBUTION WIDTH 17.9 % (11.6-14.6)
[2021-10-18] MEDS: BLOOD SUGAR DIAGNOSTIC STRIP TEST SCH ×4 (07:30→21:42)
[2021-10-18] MEDS: INSULIN LISPRO 100 UNITS/ML SUBCUT SCH ×4 (08:00→21:35)
[2021-10-18] MEDS: PANTOPRAZOLE SODIUM 40 MG/VIAL IV SCH ×2 (09:01→21:32)
[2021-10-18] MEDS: POLYETHYLENE GLYCOL 3350 (17GM) 1 DOSE PACK PO SCH (09:01)
[2021-10-18] MEDS: LOSARTAN POTASSIUM 50 MG TABLET PO SCH ×2 (09:01→21:33)
[2021-10-18] MEDS: RISPERIDONE 1MG TABLET PO SCH ×2 (09:02→17:29)
[2021-10-18] MEDS: ATORVASTATIN CALCIUM 20MG TABLET PO SCH (21:35)
[2021-10-18] MEDS: LORAZEPAM 2MG/ML CPJ IV PRN (21:41)
[2021-10-19] VITALS (13 sets, daily range): BP systolic 105–160; BP diastolic 54–73
[2021-10-19] MEDS: HYDRALAZINE HCL 100MG TABLET PO SCH ×3 (05:56→22:04)
[2021-10-19] MEDS: DILTIAZEM HCL 90MG TABLET PO SCH ×3 (05:57→17:08)
[2021-10-19] MEDS: METOCLOPRAMIDE HCL 10MG/2ML VIAL IV SCH ×3 (05:57→17:08)
[2021-10-19] MEDS: GUAIFENESIN 200MG/10ML SUGAR FREE UDC PO SCH ×3 (05:57→17:07)
[2021-10-19 06:07] LABS: BASOPHILS % 0.6 % (0.0-2.0); EOSINOPHILS % 2.4 % (0.0-5.0); HEMATOCRIT. 22.9 % (42.0-52.0); HEMOGLOBIN. 7.6 g/dL (14.0-18.0); LYMPHOCYTES % 16.3 % (20.0-50.0); MEAN CORPUSCULAR HEMOGLOBIN 28.4 pg (28.0-32.0); MEAN CORPUSCULAR VOLUME 85.4 fL (80.0-94.0); MEAN PLATELET VOLUME 7.9 fl (7.4-10.4); MONOCYTES % 10.4 % (2.0-8.0); NEUTROPHILS % 70.3 % (40.0-76.0); PLATELET 176 x1000/uL (130-400); RED BLOOD CELL COUNT 2.68 mill/uL (4.7-6.1); RED CELL DISTRIBUTION WIDTH 17.4 % (11.6-14.6)
[2021-10-19] MEDS: BLOOD SUGAR DIAGNOSTIC STRIP TEST SCH ×4 (07:30→21:00)
[2021-10-19] MEDS: INSULIN LISPRO 100 UNITS/ML SUBCUT SCH ×4 (08:00→22:05)
[2021-10-19] MEDS: POLYETHYLENE GLYCOL 3350 (17GM) 1 DOSE PACK PO SCH (08:45)
[2021-10-19] MEDS: PANTOPRAZOLE SODIUM 40 MG/VIAL IV SCH ×2 (08:45→22:04)
[2021-10-19] MEDS: RISPERIDONE 1MG TABLET PO SCH ×2 (08:46→17:08)
[2021-10-19] MEDS: LOSARTAN POTASSIUM 50 MG TABLET PO SCH ×2 (08:46→22:04)
[2021-10-19] MEDS: IPRATROPIUM/ALBUTEROL 0.5-3(2.5)MG/3ML NEB HHN SCH ×4 (08:54→20:35)
[2021-10-19] MEDS: ATORVASTATIN CALCIUM 20MG TABLET PO SCH (22:06)
[2021-10-20] VITALS (11 sets, daily range): BP systolic 118–159; BP diastolic 54–74
[2021-10-20] MEDS: METOCLOPRAMIDE HCL 10MG/2ML VIAL IV SCH ×5 (00:38→23:16)
[2021-10-20] MEDS: GUAIFENESIN 200MG/10ML SUGAR FREE UDC PO SCH ×5 (00:38→23:16)
[2021-10-20] MEDS: DILTIAZEM HCL 90MG TABLET PO SCH ×5 (00:39→23:18)
[2021-10-20] MEDS: IPRATROPIUM/ALBUTEROL 0.5-3(2.5)MG/3ML NEB HHN SCH ×6 (00:43→20:55)
[2021-10-20] MEDS: HYDRALAZINE HCL 100MG TABLET PO SCH ×3 (06:05→21:13)
[2021-10-20 07:02] LABS: BASOPHILS % 0.7 % (0.0-2.0); EOSINOPHILS % 1.9 % (0.0-5.0); HEMATOCRIT. 23.7 % (42.0-52.0); HEMOGLOBIN. 7.8 g/dL (14.0-18.0); MEAN CORPUSCULAR HEMOGLOBIN 27.9 pg (28.0-32.0); MEAN CORPUSCULAR VOLUME 84.6 fL (80.0-94.0); MEAN PLATELET VOLUME 7.9 fl (7.4-10.4); MONOCYTES % 10.4 % (2.0-8.0); PLATELET 181 x1000/uL (130-400); RED CELL DISTRIBUTION WIDTH 17.4 % (11.6-14.6)
[2021-10-20] MEDS: BLOOD SUGAR DIAGNOSTIC STRIP TEST SCH ×4 (07:30→20:19)
[2021-10-20] MEDS: INSULIN LISPRO 100 UNITS/ML SUBCUT SCH ×4 (08:00→21:14)
[2021-10-20] MEDS: LOSARTAN POTASSIUM 50 MG TABLET PO SCH ×2 (08:47→21:12)
[2021-10-20] MEDS: POLYETHYLENE GLYCOL 3350 (17GM) 1 DOSE PACK PO SCH (08:47)
[2021-10-20] MEDS: RISPERIDONE 1MG TABLET PO SCH ×2 (08:47→19:07)
[2021-10-20] MEDS: PANTOPRAZOLE SODIUM 40 MG/VIAL IV SCH ×2 (08:47→21:13)
[2021-10-20] MEDS: ZOLPIDEM TARTRATE 5MG TABLET PO PRN (21:11)
[2021-10-20] MEDS: ATORVASTATIN CALCIUM 20MG TABLET PO SCH (21:36)
[2021-10-21] VITALS (13 sets, daily range): BP systolic 115–157; BP diastolic 58–86
[2021-10-21] MEDS: IPRATROPIUM/ALBUTEROL 0.5-3(2.5)MG/3ML NEB HHN SCH ×6 (01:10→21:20)
[2021-10-21] MEDS: METOCLOPRAMIDE HCL 10MG/2ML VIAL IV SCH ×4 (05:15→23:22)
[2021-10-21] MEDS: GUAIFENESIN 200MG/10ML SUGAR FREE UDC PO SCH ×4 (05:15→23:28)
[2021-10-21] MEDS: DILTIAZEM HCL 90MG TABLET PO SCH ×4 (05:16→23:22)
[2021-10-21] MEDS: HYDRALAZINE HCL 100MG TABLET PO SCH ×3 (05:16→20:40)
[2021-10-21 06:57] LABS: BASOPHILS % 0.9 % (0.0-2.0); EOSINOPHILS % 1.6 % (0.0-5.0); HEMATOCRIT. 23.2 % (42.0-52.0); HEMOGLOBIN. 7.7 g/dL (14.0-18.0); LYMPHOCYTES % 17.6 % (20.0-50.0); MEAN CORPUSCULAR HEMOGLOBIN 28.2 pg (28.0-32.0); MEAN CORPUSCULAR VOLUME 85.1 fL (80.0-94.0); MEAN PLATELET VOLUME 7.8 fl (7.4-10.4); MONOCYTES % 10.7 % (2.0-8.0); NEUTROPHILS % 69.2 % (40.0-76.0); PLATELET 177 x1000/uL (130-400); RED BLOOD CELL COUNT 2.73 mill/uL (4.7-6.1); RED CELL DISTRIBUTION WIDTH 17.5 % (11.6-14.6)
[2021-10-21] MEDS: INSULIN LISPRO 100 UNITS/ML SUBCUT SCH ×4 (07:59→20:41)
[2021-10-21] MEDS: BLOOD SUGAR DIAGNOSTIC STRIP TEST SCH ×4 (07:59→20:24)
[2021-10-21] MEDS: RISPERIDONE 1MG TABLET PO SCH ×2 (08:00→17:52)
[2021-10-21] MEDS: POLYETHYLENE GLYCOL 3350 (17GM) 1 DOSE PACK PO SCH ×2 (08:00→08:09)
[2021-10-21] MEDS: PANTOPRAZOLE SODIUM 40 MG/VIAL IV SCH ×2 (08:00→20:40)
[2021-10-21] MEDS: LOSARTAN POTASSIUM 50 MG TABLET PO SCH ×2 (08:00→20:40)
[2021-10-21] MEDS: ATORVASTATIN CALCIUM 20MG TABLET PO SCH (20:56)
[2021-10-21] MEDS: ZOLPIDEM TARTRATE 5MG TABLET PO PRN (23:22)
[2021-10-22] VITALS (23 sets, daily range): BP systolic 134–192; BP diastolic 65–95
[2021-10-22] MEDS: IPRATROPIUM/ALBUTEROL 0.5-3(2.5)MG/3ML NEB HHN SCH ×6 (00:47→23:54)
[2021-10-22] MEDS: METOCLOPRAMIDE HCL 10MG/2ML VIAL IV SCH ×3 (05:44→18:11)
[2021-10-22] MEDS: GUAIFENESIN 200MG/10ML SUGAR FREE UDC PO SCH ×3 (05:44→18:10)
[2021-10-22] MEDS: DILTIAZEM HCL 90MG TABLET PO SCH ×4 (05:45→18:11)
[2021-10-22] MEDS: HYDRALAZINE HCL 100MG TABLET PO SCH ×3 (05:45→20:46)
[2021-10-22 07:11] LABS: BASOPHILS % 0.7 % (0.0-2.0); EOSINOPHILS % 1.4 % (0.0-5.0); HEMATOCRIT. 21.6 % (42.0-52.0); HEMOGLOBIN. 7.3 g/dL (14.0-18.0); LYMPHOCYTES % 15.7 % (20.0-50.0); MEAN CORPUSCULAR HEMOGLOBIN 28.5 pg (28.0-32.0); MEAN CORPUSCULAR VOLUME 84.5 fL (80.0-94.0); MEAN PLATELET VOLUME 7.8 fl (7.4-10.4); MONOCYTES % 9.5 % (2.0-8.0); NEUTROPHILS % 72.7 % (40.0-76.0); PLATELET 171 x1000/uL (130-400); RED BLOOD CELL COUNT 2.56 mill/uL (4.7-6.1); RED CELL DISTRIBUTION WIDTH 17.3 % (11.6-14.6)
[2021-10-22] MEDS: INSULIN LISPRO 100 UNITS/ML SUBCUT SCH ×4 (08:00→20:59)
[2021-10-22] MEDS: BLOOD SUGAR DIAGNOSTIC STRIP TEST SCH ×4 (08:14→21:00)
[2021-10-22] MEDS: LOSARTAN POTASSIUM 50 MG TABLET PO SCH ×2 (08:16→20:47)
[2021-10-22] MEDS: PANTOPRAZOLE SODIUM 40 MG/VIAL IV SCH ×2 (08:16→20:45)
[2021-10-22] MEDS: RISPERIDONE 1MG TABLET PO SCH ×2 (08:16→18:11)
[2021-10-22] MEDS: POLYETHYLENE GLYCOL 3350 (17GM) 1 DOSE PACK PO SCH (08:17)
[2021-10-22] MEDS ORDERED: CEFAZOLIN 1000MG PREMIX 50 ML IV NR (12:15)
[2021-10-22] MEDS ORDERED: CEFAZOLIN 1000MG PREMIX 50 ML IV ONE (12:31)
[2021-10-22] MEDS ORDERED: FENTANYL CITRATE/PF 50MCG/ML 2ML VIAL ONE (12:31)
[2021-10-22] MEDS ORDERED: HEPARIN 1000 UNITS/ML 10ML ONE (12:53)
[2021-10-22] MEDS ORDERED: LIDOCAINE HCL 1% 30ML VIAL (10MG/ML) ONE (13:20)
[2021-10-22] MEDS ORDERED: FENTANYL CITRATE/PF 50MCG/ML 2ML VIAL IV ONE (13:45)
[2021-10-22] MEDS: LORAZEPAM 2MG/ML CPJ IV PRN (20:45)
[2021-10-22] MEDS: ATORVASTATIN CALCIUM 20MG TABLET PO SCH (20:46)
[2021-10-22] MEDS: ZOLPIDEM TARTRATE 5MG TABLET PO PRN (20:47)
[2021-10-23] VITALS (13 sets, daily range): BP systolic 99–167; BP diastolic 55–81
[2021-10-23] MEDS: DILTIAZEM HCL 90MG TABLET PO SCH ×4 (00:06→18:06)
[2021-10-23] MEDS: LORAZEPAM 2MG/ML CPJ IV PRN ×2 (00:06→06:24)
[2021-10-23] MEDS: GUAIFENESIN 200MG/10ML SUGAR FREE UDC PO SCH ×4 (00:06→18:05)
[2021-10-23] MEDS: METOCLOPRAMIDE HCL 10MG/2ML VIAL IV SCH ×4 (00:06→19:06)
[2021-10-23] MEDS: IPRATROPIUM/ALBUTEROL 0.5-3(2.5)MG/3ML NEB HHN SCH ×5 (03:50→20:27)
[2021-10-23] MEDS: HYDRALAZINE HCL 100MG TABLET PO SCH ×2 (06:24→14:13)
[2021-10-23 07:00] LABS: EOSINOPHILS % 1.7 % (0.0-5.0); HEMATOCRIT. 21.2 % (42.0-52.0); HEMOGLOBIN. 7.1 g/dL (14.0-18.0); LYMPHOCYTES % 19.4 % (20.0-50.0); MEAN CORPUSCULAR HEMOGLOBIN 28.5 pg (28.0-32.0); MEAN CORPUSCULAR VOLUME 84.6 fL (80.0-94.0); MEAN PLATELET VOLUME 7.9 fl (7.4-10.4); MONOCYTES % 10.6 % (2.0-8.0); NEUTROPHILS % 67.3 % (40.0-76.0); PLATELET 169 x1000/uL (130-400); RED BLOOD CELL COUNT 2.51 mill/uL (4.7-6.1); RED CELL DISTRIBUTION WIDTH 17.4 % (11.6-14.6)
[2021-10-23] MEDS: BLOOD SUGAR DIAGNOSTIC STRIP TEST SCH ×4 (07:30→22:02)
[2021-10-23] MEDS: INSULIN LISPRO 100 UNITS/ML SUBCUT SCH ×4 (08:00→21:00)
[2021-10-23] MEDS: LOSARTAN POTASSIUM 50 MG TABLET PO SCH ×2 (08:44→22:02)
[2021-10-23] MEDS: PANTOPRAZOLE SODIUM 40 MG/VIAL IV SCH ×2 (08:44→22:02)
[2021-10-23] MEDS: RISPERIDONE 1MG TABLET PO SCH (08:44)
[2021-10-23] MEDS: POLYETHYLENE GLYCOL 3350 (17GM) 1 DOSE PACK PO SCH (08:44)
[2021-10-23] MEDS: ATORVASTATIN CALCIUM 20MG TABLET PO SCH (22:02)
[2021-10-24] VITALS (16 sets, daily range): BP systolic 113–170; BP diastolic 58–105
[2021-10-24] MEDS: GUAIFENESIN 200MG/10ML SUGAR FREE UDC PO SCH ×5 (00:12→23:17)
[2021-10-24] MEDS: METOCLOPRAMIDE HCL 10MG/2ML VIAL IV SCH ×5 (00:13→23:17)
[2021-10-24] MEDS: DILTIAZEM HCL 90MG TABLET PO SCH ×5 (00:13→23:17)
[2021-10-24] MEDS: IPRATROPIUM/ALBUTEROL 0.5-3(2.5)MG/3ML NEB HHN SCH ×6 (00:25→20:06)
[2021-10-24 06:31] LABS: BASOPHILS % 1.1 % (0.0-2.0); EOSINOPHILS % 2.2 % (0.0-5.0); HEMATOCRIT. 24.9 % (42.0-52.0); HEMOGLOBIN. 8.4 g/dL (14.0-18.0); LYMPHOCYTES % 18.8 % (20.0-50.0); MEAN CORPUSCULAR HEMOGLOBIN 28.7 pg (28.0-32.0); MONOCYTES % 9.7 % (2.0-8.0); NEUTROPHILS % 68.2 % (40.0-76.0); PLATELET 188 x1000/uL (130-400); RED BLOOD CELL COUNT 2.92 mill/uL (4.7-6.1); RED CELL DISTRIBUTION WIDTH 16.6 % (11.6-14.6)
[2021-10-24] MEDS: BLOOD SUGAR DIAGNOSTIC STRIP TEST SCH ×4 (07:30→21:19)
[2021-10-24] MEDS: INSULIN LISPRO 100 UNITS/ML SUBCUT SCH ×4 (08:00→21:29)
[2021-10-24] MEDS: PANTOPRAZOLE SODIUM 40 MG/VIAL IV SCH ×2 (09:30→21:17)
[2021-10-24] MEDS: POLYETHYLENE GLYCOL 3350 (17GM) 1 DOSE PACK PO SCH (09:30)
[2021-10-24] MEDS: LOSARTAN POTASSIUM 50 MG TABLET PO SCH ×2 (09:30→21:17)
[2021-10-24] MEDS: ZOLPIDEM TARTRATE 5MG TABLET PO PRN (21:17)
[2021-10-24] MEDS: ATORVASTATIN CALCIUM 20MG TABLET PO SCH (21:17)
[2021-10-24] MEDS: HYDRALAZINE HCL 100MG TABLET PO SCH (21:19)
[2021-10-25] VITALS (12 sets, daily range): BP systolic 123–166; BP diastolic 59–105
[2021-10-25] MEDS: IPRATROPIUM/ALBUTEROL 0.5-3(2.5)MG/3ML NEB HHN SCH ×6 (00:53→20:29)
[2021-10-25] MEDS: METOCLOPRAMIDE HCL 10MG/2ML VIAL IV SCH ×3 (05:10→18:03)
[2021-10-25] MEDS: GUAIFENESIN 200MG/10ML SUGAR FREE UDC PO SCH ×3 (05:10→18:03)
[2021-10-25] MEDS: HYDRALAZINE HCL 100MG TABLET PO SCH ×3 (05:11→21:18)
[2021-10-25] MEDS: DILTIAZEM HCL 90MG TABLET PO SCH ×3 (05:11→18:05)
[2021-10-25 06:46] LABS: EOSINOPHILS % 0.9 % (0.0-5.0); HEMATOCRIT. 26.5 % (42.0-52.0); HEMOGLOBIN. 8.8 g/dL (14.0-18.0); MEAN CORPUSCULAR HEMOGLOBIN 28.2 pg (28.0-32.0); MEAN CORPUSCULAR VOLUME 85.1 fL (80.0-94.0); MEAN PLATELET VOLUME 7.8 fl (7.4-10.4); NEUTROPHILS % 73.1 % (40.0-76.0); PLATELET 206 x1000/uL (130-400); RED BLOOD CELL COUNT 3.11 mill/uL (4.7-6.1); RED CELL DISTRIBUTION WIDTH 16.3 % (11.6-14.6)
[2021-10-25] MEDS: BLOOD SUGAR DIAGNOSTIC STRIP TEST SCH ×4 (07:30→21:19)
[2021-10-25] MEDS: INSULIN LISPRO 100 UNITS/ML SUBCUT SCH ×4 (08:00→21:44)
[2021-10-25] MEDS: LOSARTAN POTASSIUM 50 MG TABLET PO SCH (08:42)
[2021-10-25] MEDS: PANTOPRAZOLE SODIUM 40 MG/VIAL IV SCH ×2 (08:42→21:18)
[2021-10-25] MEDS: POLYETHYLENE GLYCOL 3350 (17GM) 1 DOSE PACK PO SCH (08:42)
[2021-10-25] MEDS: LORAZEPAM 2MG/ML CPJ IV PRN ×2 (09:38→19:01)
[2021-10-25] MEDS: ATORVASTATIN CALCIUM 20MG TABLET PO SCH (21:18)
[2021-10-25] MEDS: LOSARTAN POTASSIUM 100 MG TABLET PO SCH (21:42)
[2021-10-26] VITALS (13 sets, daily range): BP systolic 137–186; BP diastolic 66–104
[2021-10-26] MEDS: IPRATROPIUM/ALBUTEROL 0.5-3(2.5)MG/3ML NEB HHN SCH ×6 (00:22→20:15)
[2021-10-26] MEDS: METOCLOPRAMIDE HCL 10MG/2ML VIAL IV SCH ×4 (01:01→17:01)
[2021-10-26] MEDS: GUAIFENESIN 200MG/10ML SUGAR FREE UDC PO SCH ×4 (01:01→17:01)
[2021-10-26] MEDS: DILTIAZEM HCL 90MG TABLET PO SCH ×4 (01:02→17:02)
[2021-10-26] MEDS: LORAZEPAM 2MG/ML CPJ IV PRN ×3 (05:53→20:08)
[2021-10-26] MEDS: HYDRALAZINE HCL 100MG TABLET PO SCH ×3 (05:53→21:19)
[2021-10-26 06:57] LABS: BASOPHILS % 0.8 % (0.0-2.0); EOSINOPHILS % 1.7 % (0.0-5.0); HEMATOCRIT. 27.3 % (42.0-52.0); HEMOGLOBIN. 9.2 g/dL (14.0-18.0); LYMPHOCYTES % 13.3 % (20.0-50.0); MEAN CORPUSCULAR HEMOGLOBIN 28.8 pg (28.0-32.0); MEAN PLATELET VOLUME 7.9 fl (7.4-10.4); MONOCYTES % 7.5 % (2.0-8.0); NEUTROPHILS % 76.7 % (40.0-76.0); PLATELET 218 x1000/uL (130-400); RED BLOOD CELL COUNT 3.21 mill/uL (4.7-6.1); RED CELL DISTRIBUTION WIDTH 15.9 % (11.6-14.6)
[2021-10-26] MEDS: BLOOD SUGAR DIAGNOSTIC STRIP TEST SCH ×4 (07:57→21:00)
[2021-10-26] MEDS: INSULIN LISPRO 100 UNITS/ML SUBCUT SCH ×4 (08:00→21:00)
[2021-10-26] MEDS: POLYETHYLENE GLYCOL 3350 (17GM) 1 DOSE PACK PO SCH (08:55)
[2021-10-26] MEDS: LOSARTAN POTASSIUM 100 MG TABLET PO SCH ×2 (08:56→21:19)
[2021-10-26] MEDS: PANTOPRAZOLE SODIUM 40 MG/VIAL IV SCH ×2 (08:56→21:19)
[2021-10-26] MEDS: ATORVASTATIN CALCIUM 20MG TABLET PO SCH (21:19)
[2021-10-26] MEDS: CLONIDINE 0.1MG TABLET PO SCH (21:20)
[2021-10-27] VITALS (12 sets, daily range): BP systolic 97–179; BP diastolic 53–91
[2021-10-27] MEDS: IPRATROPIUM/ALBUTEROL 0.5-3(2.5)MG/3ML NEB HHN SCH ×6 (00:04→19:56)
[2021-10-27] MEDS: GUAIFENESIN 200MG/10ML SUGAR FREE UDC PO SCH ×4 (00:52→17:46)
[2021-10-27] MEDS: LORAZEPAM 2MG/ML CPJ IV PRN ×3 (00:52→19:35)
[2021-10-27] MEDS: METOCLOPRAMIDE HCL 10MG/2ML VIAL IV SCH ×4 (00:52→17:46)
[2021-10-27] MEDS: DILTIAZEM HCL 90MG TABLET PO SCH ×4 (00:53→17:46)
[2021-10-27 03:08] LABS: BG BASE EXCESS -1.6 mmol/L (-2.0-2.0); BG CARBOXYHEMOGLOBIN 0.3 % (0.5-1.5); BG FRACTION INSPIRED OXYGEN 60; BG HCO3 ACT 22.8 mmol/L (22.0-26.0); BG METHEMOGLOBIN 1.7 % (0.0-1.5); BG PCO2 37.1 mmHg (35.0-45.0); BG PH 7.406 (7.350-7.450); BG PO2 149.2 mmHg (75.0-100.0); BG SAMPLE SITE LEFT RADIAL; BG TOTAL HEMOGLOBIN 10.2 g/dL (12.0-18.0); BG VENT MODE VENT - AC
[2021-10-27] MEDS: HYDRALAZINE HCL 100MG TABLET PO SCH ×3 (05:34→22:51)
[2021-10-27] MEDS: CLONIDINE 0.1MG TABLET PO SCH ×3 (05:38→22:51)
[2021-10-27 05:47] LABS: BASOPHILS % 1.1 % (0.0-2.0); EOSINOPHILS % 3.8 % (0.0-5.0); HEMATOCRIT. 28.4 % (42.0-52.0); HEMOGLOBIN. 9.4 g/dL (14.0-18.0); LYMPHOCYTES % 14.8 % (20.0-50.0); MEAN CORPUSCULAR HEMOGLOBIN 27.9 pg (28.0-32.0); MEAN CORPUSCULAR VOLUME 84.6 fL (80.0-94.0); MEAN PLATELET VOLUME 7.5 fl (7.4-10.4); NEUTROPHILS % 73.3 % (40.0-76.0); PLATELET 227 x1000/uL (130-400); RED BLOOD CELL COUNT 3.36 mill/uL (4.7-6.1); RED CELL DISTRIBUTION WIDTH 15.9 % (11.6-14.6)
[2021-10-27 05:54] LABS: PHOSPHORUS 4.4 mg/dL (2.5-4.9)
[2021-10-27] MEDS: BLOOD SUGAR DIAGNOSTIC STRIP TEST SCH ×4 (07:30→21:37)
[2021-10-27] MEDS: INSULIN LISPRO 100 UNITS/ML SUBCUT SCH ×4 (08:00→21:38)
[2021-10-27] MEDS ORDERED: SUCCINYLCHOLINE CHLORIDE 200MG/10ML IV ONE (08:17)
[2021-10-27] MEDS ORDERED: ETOMIDATE 2MG/ML 10ML VIAL IV ONE (08:17)
[2021-10-27] MEDS ORDERED: VECURONIUM BROMIDE 10 MG/VIAL IV ONE (08:17)
[2021-10-27] MEDS ORDERED: SODIUM CHLORIDE 0.9% 10ML VIAL ONE (08:17)
[2021-10-27] MEDS: POLYETHYLENE GLYCOL 3350 (17GM) 1 DOSE PACK PO SCH (09:00)
[2021-10-27] MEDS: PANTOPRAZOLE SODIUM 40 MG/VIAL IV SCH ×2 (09:24→21:34)
[2021-10-27] MEDS: LOSARTAN POTASSIUM 100 MG TABLET PO SCH ×2 (09:24→21:36)
[2021-10-27] MEDS: METHYLPREDNISOLONE SOD SUCC 40 MG/ML VIAL IV SCH ×2 (12:49→21:34)
[2021-10-27] MEDS: ATORVASTATIN CALCIUM 20MG TABLET PO SCH (21:36)
[2021-10-28] VITALS (12 sets, daily range): BP systolic 110–159; BP diastolic 56–79
[2021-10-28] MEDS: IPRATROPIUM/ALBUTEROL 0.5-3(2.5)MG/3ML NEB HHN SCH ×7 (00:14→20:17)
[2021-10-28] MEDS: LORAZEPAM 2MG/ML CPJ IV PRN ×4 (00:20→17:08)
[2021-10-28] MEDS: GUAIFENESIN 200MG/10ML SUGAR FREE UDC PO SCH ×4 (00:20→17:08)
[2021-10-28] MEDS: METOCLOPRAMIDE HCL 10MG/2ML VIAL IV SCH ×4 (00:20→17:08)
[2021-10-28] MEDS: DILTIAZEM HCL 90MG TABLET PO SCH ×4 (00:39→17:08)
[2021-10-28] MEDS: METHYLPREDNISOLONE SOD SUCC 40 MG/ML VIAL IV SCH ×2 (06:10→17:08)
[2021-10-28] MEDS: HYDRALAZINE HCL 100MG TABLET PO SCH ×3 (06:11→22:06)
[2021-10-28] MEDS: CLONIDINE 0.1MG TABLET PO SCH ×3 (06:11→22:06)
[2021-10-28 06:24] LABS: HEMOGLOBIN. 9.8 g/dL (14.0-18.0); MEAN CORPUSCULAR HEMOGLOBIN 28.6 pg (28.0-32.0); MEAN CORPUSCULAR VOLUME 84.8 fL (80.0-94.0); MEAN PLATELET VOLUME 7.9 fl (7.4-10.4); PLATELET 227 x1000/uL (130-400); RED BLOOD CELL COUNT 3.42 mill/uL (4.7-6.1); RED CELL DISTRIBUTION WIDTH 15.9 % (11.6-14.6)
[2021-10-28] MEDS: BLOOD SUGAR DIAGNOSTIC STRIP TEST SCH ×4 (07:46→20:35)
[2021-10-28] MEDS: PANTOPRAZOLE SODIUM 40 MG/VIAL IV SCH ×2 (08:58→20:34)
[2021-10-28] MEDS: POLYETHYLENE GLYCOL 3350 (17GM) 1 DOSE PACK PO SCH (08:58)
[2021-10-28] MEDS: LOSARTAN POTASSIUM 100 MG TABLET PO SCH ×2 (08:58→20:34)
[2021-10-28] MEDS: INSULIN LISPRO 100 UNITS/ML SUBCUT SCH ×4 (08:59→22:00)
[2021-10-28] MEDS: ATORVASTATIN CALCIUM 20MG TABLET PO SCH (20:34)
[2021-10-28] MEDS: TRAZODONE HCL 50MG TABLET PO SCH (20:34)
[2021-10-28] MEDS ORDERED: INSULIN GLARGINE UD 100 UNITS/ML SYR SUBCUT SCH (22:00)
[2021-10-28 22:14] LABS: PLATELET ESTIMATE NORMAL
[2021-10-29] VITALS (11 sets, daily range): BP systolic 101–158; BP diastolic 48–84
[2021-10-29] MEDS: IPRATROPIUM/ALBUTEROL 0.5-3(2.5)MG/3ML NEB HHN SCH ×7 (00:02→23:43)
[2021-10-29] MEDS: GUAIFENESIN 200MG/10ML SUGAR FREE UDC PO SCH ×5 (00:30→23:20)
[2021-10-29] MEDS: LORAZEPAM 2MG/ML CPJ IV PRN ×2 (00:30→23:21)
[2021-10-29] MEDS: METOCLOPRAMIDE HCL 10MG/2ML VIAL IV SCH ×5 (00:30→23:21)
[2021-10-29] MEDS: DILTIAZEM HCL 90MG TABLET PO SCH ×5 (00:32→23:20)
[2021-10-29] MEDS: METHYLPREDNISOLONE SOD SUCC 40 MG/ML VIAL IV SCH ×2 (05:07→17:16)
[2021-10-29] MEDS: HYDRALAZINE HCL 100MG TABLET PO SCH ×3 (05:08→22:05)
[2021-10-29] MEDS: CLONIDINE 0.1MG TABLET PO SCH ×3 (05:08→22:05)
[2021-10-29 06:09] LABS: HEMATOCRIT. 26.5 % (42.0-52.0); HEMOGLOBIN. 8.9 g/dL (14.0-18.0); MEAN CORPUSCULAR HEMOGLOBIN 28.2 pg (28.0-32.0); MEAN CORPUSCULAR VOLUME 84.2 fL (80.0-94.0); PLATELET 212 x1000/uL (130-400); RED BLOOD CELL COUNT 3.15 mill/uL (4.7-6.1); RED CELL DISTRIBUTION WIDTH 15.8 % (11.6-14.6)
[2021-10-29] MEDS: BLOOD SUGAR DIAGNOSTIC STRIP TEST SCH ×4 (07:30→21:00)
[2021-10-29] MEDS: PANTOPRAZOLE SODIUM 40 MG/VIAL IV SCH ×2 (08:33→22:04)
[2021-10-29] MEDS: POLYETHYLENE GLYCOL 3350 (17GM) 1 DOSE PACK PO SCH (08:33)
[2021-10-29] MEDS: LOSARTAN POTASSIUM 100 MG TABLET PO SCH ×2 (08:33→22:05)
[2021-10-29] MEDS: INSULIN LISPRO 100 UNITS/ML SUBCUT SCH ×4 (08:53→22:07)
[2021-10-29 12:40] LABS: PLATELET ESTIMATE NORMAL
[2021-10-29 17:30] LABS: BG BASE EXCESS -4.2 mmol/L (-2.0-2.0); BG CARBOXYHEMOGLOBIN 0.6 % (0.5-1.5); BG DEOXYHEMOGLOBIN 12.8 % (0.0-5.0); BG FRACTION INSPIRED OXYGEN 21; BG HCO3 ACT 20.5 mmol/L (22.0-26.0); BG METHEMOGLOBIN 0.4 % (0.0-1.5); BG OXYGEN SATURATION 87.1 % (92.0-98.5); BG OXYHEMOGLOBIN 86.2 % (94.0-97.0); BG PH 7.374 (7.350-7.450); BG PO2 53.2 mmHg (75.0-100.0); BG SAMPLE SITE RIGHT RADIAL; BG TOTAL HEMOGLOBIN 9.3 g/dL (12.0-18.0); BG VENT MODE ROOM AIR
[2021-10-29] MEDS: ATORVASTATIN CALCIUM 20MG TABLET PO SCH (21:00)
[2021-10-29] MEDS: INSULIN GLARGINE UD 100 UNITS/ML SYR SUBCUT SCH (22:00)
[2021-10-29] MEDS: TRAZODONE HCL 50MG TABLET PO SCH (22:05)
[2021-10-30] VITALS (16 sets, daily range): BP systolic 125–168; BP diastolic 60–89
[2021-10-30] MEDS: IPRATROPIUM/ALBUTEROL 0.5-3(2.5)MG/3ML NEB HHN SCH ×5 (01:02→16:38)
[2021-10-30] MEDS: LORAZEPAM 2MG/ML CPJ IV PRN ×3 (05:20→22:10)
[2021-10-30] MEDS: GUAIFENESIN 200MG/10ML SUGAR FREE UDC PO SCH ×3 (05:45→17:35)
[2021-10-30] MEDS: METHYLPREDNISOLONE SOD SUCC 40 MG/ML VIAL IV SCH ×2 (05:45→17:36)
[2021-10-30] MEDS: DILTIAZEM HCL 90MG TABLET PO SCH ×3 (05:47→17:36)
[2021-10-30] MEDS: CLONIDINE 0.1MG TABLET PO SCH ×3 (05:47→22:11)
[2021-10-30] MEDS: HYDRALAZINE HCL 100MG TABLET PO SCH ×3 (05:48→22:12)
[2021-10-30] MEDS: METOCLOPRAMIDE HCL 10MG/2ML VIAL IV SCH ×3 (06:00→17:37)
[2021-10-30 06:16] LABS: HEMATOCRIT. 28.4 % (42.0-52.0); HEMOGLOBIN. 9.4 g/dL (14.0-18.0); MEAN CORPUSCULAR VOLUME 84.6 fL (80.0-94.0); MEAN PLATELET VOLUME 7.9 fl (7.4-10.4); PLATELET 221 x1000/uL (130-400); RED BLOOD CELL COUNT 3.35 mill/uL (4.7-6.1)
[2021-10-30] MEDS: BLOOD SUGAR DIAGNOSTIC STRIP TEST SCH ×4 (07:30→21:00)
[2021-10-30] MEDS: LOSARTAN POTASSIUM 100 MG TABLET PO SCH ×2 (08:17→22:11)
[2021-10-30] MEDS: PANTOPRAZOLE SODIUM 40 MG/VIAL IV SCH ×2 (08:17→22:10)
[2021-10-30] MEDS: INSULIN LISPRO 100 UNITS/ML SUBCUT SCH ×3 (08:17→17:35)
[2021-10-30] MEDS: POLYETHYLENE GLYCOL 3350 (17GM) 1 DOSE PACK PO SCH (08:17)
[2021-10-30 09:30] LABS: PLATELET ESTIMATE NORMAL
[2021-10-30] MEDS: TRAZODONE HCL 50MG TABLET PO SCH (22:10)
[2021-10-30] MEDS: INSULIN GLARGINE UD 100 UNITS/ML SYR SUBCUT SCH (22:17)
[2021-10-31] VITALS (13 sets, daily range): BP systolic 100–170; BP diastolic 59–86
[2021-10-31] MEDS: GUAIFENESIN 200MG/10ML SUGAR FREE UDC PO SCH ×4 (00:05→17:47)
[2021-10-31] MEDS: DILTIAZEM HCL 90MG TABLET PO SCH ×4 (00:06→18:00)
[2021-10-31] MEDS: METOCLOPRAMIDE HCL 10MG/2ML VIAL IV SCH ×4 (00:06→17:47)
[2021-10-31] MEDS: INSULIN LISPRO 100 UNITS/ML SUBCUT SCH ×5 (00:53→22:01)
[2021-10-31] MEDS: CLONIDINE 0.1MG TABLET PO SCH ×3 (05:21→21:59)
[2021-10-31] MEDS: METHYLPREDNISOLONE SOD SUCC 40 MG/ML VIAL IV SCH ×2 (05:21→17:47)
[2021-10-31] MEDS: HYDRALAZINE HCL 100MG TABLET PO SCH ×3 (05:22→21:59)
[2021-10-31] MEDS: BLOOD SUGAR DIAGNOSTIC STRIP TEST SCH ×4 (07:55→21:00)
[2021-10-31] MEDS: IPRATROPIUM/ALBUTEROL 0.5-3(2.5)MG/3ML NEB HHN SCH ×4 (08:32→20:49)
[2021-10-31] MEDS: LOSARTAN POTASSIUM 100 MG TABLET PO SCH ×2 (09:05→21:59)
[2021-10-31] MEDS: POLYETHYLENE GLYCOL 3350 (17GM) 1 DOSE PACK PO SCH (09:05)
[2021-10-31] MEDS ORDERED: INSULIN LISPRO 100 UNITS/ML SUBCUT SCH (11:15)
[2021-10-31] MEDS: DIAZEPAM 5 MG TABLET PO SCH ×2 (11:31→21:56)
[2021-10-31] MEDS: INSULIN GLARGINE UD 100 UNITS/ML SYR SUBCUT SCH ×2 (13:01→22:02)
[2021-10-31] MEDS ORDERED: DIAZEPAM 5 MG TABLET PO SCH (21:00)
[2021-10-31] MEDS: TRAZODONE HCL 50MG TABLET PO SCH (21:56)
[2021-11-01] VITALS (12 sets, daily range): BP systolic 118–175; BP diastolic 64–85
[2021-11-01] MEDS: GUAIFENESIN 200MG/10ML SUGAR FREE UDC PO SCH ×4 (00:21→17:54)
[2021-11-01] MEDS: DILTIAZEM HCL 90MG TABLET PO SCH ×4 (00:22→17:55)
[2021-11-01] MEDS: METOCLOPRAMIDE HCL 10MG/2ML VIAL IV SCH ×4 (00:22→17:57)
[2021-11-01] MEDS: IPRATROPIUM/ALBUTEROL 0.5-3(2.5)MG/3ML NEB HHN SCH ×6 (00:24→21:00)
[2021-11-01 06:24] LABS: HEMATOCRIT. 30.1 % (42.0-52.0); HEMOGLOBIN. 10.2 g/dL (14.0-18.0); MEAN CORPUSCULAR HEMOGLOBIN 28.4 pg (28.0-32.0); MEAN CORPUSCULAR VOLUME 83.4 fL (80.0-94.0); PLATELET 234 x1000/uL (130-400); RED CELL DISTRIBUTION WIDTH 15.8 % (11.6-14.6)
[2021-11-01] MEDS: METHYLPREDNISOLONE SOD SUCC 40 MG/ML VIAL IV SCH (06:43)
[2021-11-01] MEDS: CLONIDINE 0.1MG TABLET PO SCH (06:44)
[2021-11-01] MEDS: HYDRALAZINE HCL 100MG TABLET PO SCH ×3 (06:44→22:20)
[2021-11-01] MEDS: BLOOD SUGAR DIAGNOSTIC STRIP TEST SCH ×4 (07:54→21:06)
[2021-11-01] MEDS: INSULIN LISPRO 100 UNITS/ML SUBCUT SCH ×4 (08:46→22:22)
[2021-11-01] MEDS: DIAZEPAM 5 MG TABLET PO SCH ×2 (08:46→21:06)
[2021-11-01] MEDS: POLYETHYLENE GLYCOL 3350 (17GM) 1 DOSE PACK PO SCH (08:46)
[2021-11-01] MEDS: LOSARTAN POTASSIUM 100 MG TABLET PO SCH ×2 (08:46→21:06)
[2021-11-01] MEDS: INSULIN GLARGINE UD 100 UNITS/ML SYR SUBCUT SCH ×2 (10:23→22:23)
[2021-11-01] MEDS ORDERED: FUROSEMIDE 40MG/4ML VIAL IVP NR (11:30)
[2021-11-01 13:51] LABS: PLATELET ESTIMATE NORMAL
[2021-11-01] MEDS: CLONIDINE 0.2MG TABLET PO SCH ×2 (16:33→22:21)
[2021-11-01 18:06] LABS: HEPATITIS B SURFACE ANTIGEN NEGATIVE
[2021-11-01] MEDS: TRAZODONE HCL 50MG TABLET PO SCH (21:06)
[2021-11-02] VITALS (12 sets, daily range): BP systolic 100–155; BP diastolic 57–79
[2021-11-02] MEDS: GUAIFENESIN 200MG/10ML SUGAR FREE UDC PO SCH ×5 (00:35→23:16)
[2021-11-02] MEDS: METOCLOPRAMIDE HCL 10MG/2ML VIAL IV SCH (00:35)
[2021-11-02] MEDS: DILTIAZEM HCL 90MG TABLET PO SCH ×5 (00:38→23:17)
[2021-11-02] MEDS: IPRATROPIUM/ALBUTEROL 0.5-3(2.5)MG/3ML NEB HHN SCH ×7 (01:05→23:52)
[2021-11-02 06:04] LABS: BASOPHILS % 0.1 % (0.0-2.0); EOSINOPHILS % 0.2 % (0.0-5.0); HEMATOCRIT. 28.6 % (42.0-52.0); HEMOGLOBIN. 9.5 g/dL (14.0-18.0); LYMPHOCYTES % 11.2 % (20.0-50.0); MEAN CORPUSCULAR HEMOGLOBIN 27.7 pg (28.0-32.0); MEAN CORPUSCULAR VOLUME 83.1 fL (80.0-94.0); MEAN PLATELET VOLUME 7.7 fl (7.4-10.4); MONOCYTES % 9.3 % (2.0-8.0); NEUTROPHILS % 79.2 % (40.0-76.0); PLATELET 217 x1000/uL (130-400); RED BLOOD CELL COUNT 3.44 mill/uL (4.7-6.1)
[2021-11-02] MEDS: CLONIDINE 0.2MG TABLET PO SCH ×3 (06:46→23:17)
[2021-11-02] MEDS: HYDRALAZINE HCL 100MG TABLET PO SCH ×3 (06:46→23:17)
[2021-11-02 06:49] LABS: INR 1.2; PROTHROMBIN TIME 12.7 sec (9.6-11.0)
[2021-11-02] MEDS: BLOOD SUGAR DIAGNOSTIC STRIP TEST SCH ×4 (07:30→21:00)
[2021-11-02] MEDS: INSULIN LISPRO 100 UNITS/ML SUBCUT SCH ×4 (08:00→22:08)
[2021-11-02] MEDS: LOSARTAN POTASSIUM 100 MG TABLET PO SCH ×2 (09:00→22:06)
[2021-11-02] MEDS: METHYLPREDNISOLONE SOD SUCC 40 MG/ML VIAL IV SCH (09:26)
[2021-11-02] MEDS: DIAZEPAM 5 MG TABLET PO SCH ×2 (09:26→22:07)
[2021-11-02] MEDS: POLYETHYLENE GLYCOL 3350 (17GM) 1 DOSE PACK PO SCH (09:27)
[2021-11-02] MEDS: INSULIN GLARGINE UD 100 UNITS/ML SYR SUBCUT SCH ×2 (09:49→23:20)
[2021-11-02] MEDS ORDERED: MORPHINE SULFATE 2 MG/ML CPJ (NOT FOR IM USE) IV PRN (11:00)
[2021-11-02] MEDS ORDERED: NALOXONE HCL 0.4MG/ML VIAL IV PRN (17:45)
[2021-11-02] MEDS: TRAZODONE HCL 50MG TABLET PO SCH (22:07)
[2021-11-03] VITALS (12 sets, daily range): BP systolic 103–161; BP diastolic 64–105
[2021-11-03] MEDS: IPRATROPIUM/ALBUTEROL 0.5-3(2.5)MG/3ML NEB HHN SCH ×6 (03:55→21:22)
[2021-11-03] MEDS: GUAIFENESIN 200MG/10ML SUGAR FREE UDC PO SCH ×4 (06:17→23:00)
[2021-11-03] MEDS: HYDRALAZINE HCL 100MG TABLET PO SCH ×3 (06:18→23:00)
[2021-11-03] MEDS: CLONIDINE 0.2MG TABLET PO SCH ×3 (06:18→23:01)
[2021-11-03] MEDS: DILTIAZEM HCL 90MG TABLET PO SCH ×4 (06:19→23:00)
[2021-11-03] MEDS: BLOOD SUGAR DIAGNOSTIC STRIP TEST SCH ×4 (07:30→21:18)
[2021-11-03] MEDS: LOSARTAN POTASSIUM 100 MG TABLET PO SCH (09:00)
[2021-11-03] MEDS: METHYLPREDNISOLONE SOD SUCC 40 MG/ML VIAL IV SCH (10:01)
[2021-11-03] MEDS: DIAZEPAM 5 MG TABLET PO SCH ×2 (10:01→21:17)
[2021-11-03] MEDS: INSULIN LISPRO 100 UNITS/ML SUBCUT SCH ×4 (10:03→21:30)
[2021-11-03] MEDS: INSULIN GLARGINE UD 100 UNITS/ML SYR SUBCUT SCH ×2 (10:07→22:59)
[2021-11-03] MEDS: ALPRAZOLAM 0.5 MG TABLET PO SCH (21:17)
[2021-11-03] MEDS: LOSARTAN POTASSIUM 50 MG TABLET PO SCH (21:18)
[2021-11-03] MEDS: TRAZODONE HCL 50MG TABLET PO SCH (21:18)
[2021-11-04] VITALS (13 sets, daily range): BP systolic 103–156; BP diastolic 51–86
[2021-11-04] MEDS: IPRATROPIUM/ALBUTEROL 0.5-3(2.5)MG/3ML NEB HHN SCH ×4 (00:41→11:42)
[2021-11-04] MEDS: GUAIFENESIN 200MG/10ML SUGAR FREE UDC PO SCH (06:31)
[2021-11-04] MEDS: HYDRALAZINE HCL 100MG TABLET PO SCH ×3 (06:32→21:21)
[2021-11-04] MEDS: DILTIAZEM HCL 90MG TABLET PO SCH ×3 (06:32→17:21)
[2021-11-04] MEDS: CLONIDINE 0.2MG TABLET PO SCH ×3 (06:32→21:21)
[2021-11-04] MEDS: BLOOD SUGAR DIAGNOSTIC STRIP TEST SCH ×4 (07:30→21:21)
[2021-11-04] MEDS: INSULIN LISPRO 100 UNITS/ML SUBCUT SCH ×4 (08:00→21:23)
[2021-11-04] MEDS: DIAZEPAM 5 MG TABLET PO SCH ×2 (09:51→21:21)
[2021-11-04] MEDS: LOSARTAN POTASSIUM 50 MG TABLET PO SCH ×2 (09:54→21:22)
[2021-11-04] MEDS: METHYLPREDNISOLONE SOD SUCC 40 MG/ML VIAL IV SCH (09:54)
[2021-11-04] MEDS: INSULIN GLARGINE UD 100 UNITS/ML SYR SUBCUT SCH ×2 (09:59→22:06)
[2021-11-04] MEDS: TRAZODONE HCL 50MG TABLET PO SCH (21:22)
[2021-11-04] MEDS: ALPRAZOLAM 0.5 MG TABLET PO SCH (21:22)
[2021-11-05] VITALS (12 sets, daily range): BP systolic 122–175; BP diastolic 60–86
[2021-11-05] MEDS: DILTIAZEM HCL 90MG TABLET PO SCH ×5 (00:18→23:43)
[2021-11-05] MEDS: CLONIDINE 0.2MG TABLET PO SCH ×3 (05:29→20:58)
[2021-11-05] MEDS: HYDRALAZINE HCL 100MG TABLET PO SCH ×3 (05:29→20:58)
[2021-11-05] MEDS: BLOOD SUGAR DIAGNOSTIC STRIP TEST SCH ×4 (07:30→21:00)
[2021-11-05] MEDS: INSULIN LISPRO 100 UNITS/ML SUBCUT SCH ×4 (08:00→20:59)
[2021-11-05] MEDS: DIAZEPAM 5 MG TABLET PO SCH (08:55)
[2021-11-05] MEDS: METHYLPREDNISOLONE SOD SUCC 40 MG/ML VIAL IV SCH (08:55)
[2021-11-05] MEDS: LOSARTAN POTASSIUM 50 MG TABLET PO SCH ×2 (08:55→20:57)
[2021-11-05] MEDS: INSULIN GLARGINE UD 100 UNITS/ML SYR SUBCUT SCH ×2 (12:00→20:59)
[2021-11-05] MEDS: ALPRAZOLAM 0.5 MG TABLET PO SCH (20:57)
[2021-11-05] MEDS: TRAZODONE HCL 50MG TABLET PO SCH (20:57)
[2021-11-06] VITALS (12 sets, daily range): BP systolic 108–162; BP diastolic 48–75
[2021-11-06] MEDS: DILTIAZEM HCL 90MG TABLET PO SCH ×3 (05:56→17:46)
[2021-11-06] MEDS: HYDRALAZINE HCL 100MG TABLET PO SCH ×3 (05:57→21:44)
[2021-11-06] MEDS: CLONIDINE 0.2MG TABLET PO SCH ×3 (05:57→21:43)
[2021-11-06] MEDS: BLOOD SUGAR DIAGNOSTIC STRIP TEST SCH ×3 (07:30→17:32)
[2021-11-06] MEDS: LOSARTAN POTASSIUM 50 MG TABLET PO SCH ×2 (09:13→21:43)
[2021-11-06] MEDS: METHYLPREDNISOLONE SOD SUCC 40 MG/ML VIAL IV SCH (09:13)
[2021-11-06] MEDS: INSULIN LISPRO 100 UNITS/ML SUBCUT SCH ×3 (09:23→17:56)
[2021-11-06] MEDS: INSULIN GLARGINE UD 100 UNITS/ML SYR SUBCUT SCH ×2 (09:37→21:56)
[2021-11-06] MEDS ORDERED: IPRATROPIUM/ALBUTEROL 0.5-3(2.5)MG/3ML NEB HHN PRN (14:15)
[2021-11-06] MEDS ORDERED: TRAMADOL 50MG TABLET PO PRN (17:15)
[2021-11-06] MEDS: ALPRAZOLAM 0.5 MG TABLET PO SCH (21:55)
[2021-11-06] MEDS: TRAZODONE HCL 50MG TABLET PO SCH (21:55)
[2021-11-07] VITALS (12 sets, daily range): BP systolic 92–151; BP diastolic 52–76
[2021-11-07] MEDS: DILTIAZEM HCL 90MG TABLET PO SCH ×4 (00:09→18:38)
[2021-11-07] MEDS: IPRATROPIUM/ALBUTEROL 0.5-3(2.5)MG/3ML NEB HHN SCH ×3 (00:53→16:30)
[2021-11-07] MEDS: HYDRALAZINE HCL 100MG TABLET PO SCH ×3 (05:22→22:07)
[2021-11-07] MEDS: CLONIDINE 0.2MG TABLET PO SCH ×3 (05:22→22:08)
[2021-11-07] MEDS ORDERED: DEXTROSE 50% WATER 50ML SYRINGE IV PRN (08:30)
[2021-11-07] MEDS: INSULIN GLARGINE UD 100 UNITS/ML SYR SUBCUT SCH ×2 (10:13→22:10)
[2021-11-07] MEDS: BLOOD SUGAR DIAGNOSTIC STRIP TEST SCH ×3 (11:58→21:00)
[2021-11-07] MEDS: INSULIN LISPRO 100 UNITS/ML SUBCUT SCH ×3 (12:13→21:00)
[2021-11-07] MEDS: LOSARTAN POTASSIUM 50 MG TABLET PO SCH ×2 (12:20→21:15)
[2021-11-07] MEDS: PREDNISONE 10MG TABLET PO SCH (12:21)
[2021-11-07] MEDS ORDERED: LOPERAMIDE HCL 2MG CAPSULE PO PRN (18:15)
[2021-11-07] MEDS: TRAZODONE HCL 50MG TABLET PO SCH (21:16)
[2021-11-07] MEDS: ALPRAZOLAM 0.5 MG TABLET PO SCH (21:16)
[2021-11-08] VITALS (10 sets, daily range): BP systolic 115–172; BP diastolic 58–82
[2021-11-08] MEDS: DILTIAZEM HCL 90MG TABLET PO SCH ×3 (00:42→13:16)
[2021-11-08] MEDS: IPRATROPIUM/ALBUTEROL 0.5-3(2.5)MG/3ML NEB HHN SCH ×3 (01:06→14:00)
[2021-11-08] MEDS: CLONIDINE 0.2MG TABLET PO SCH ×2 (05:50→16:26)
[2021-11-08] MEDS: HYDRALAZINE HCL 100MG TABLET PO SCH ×2 (05:50→16:25)
[2021-11-08] MEDS: BLOOD SUGAR DIAGNOSTIC STRIP TEST SCH ×2 (07:30→12:30)
[2021-11-08] MEDS: INSULIN LISPRO 100 UNITS/ML SUBCUT SCH ×2 (08:00→13:00)
[2021-11-08] MEDS: LOSARTAN POTASSIUM 50 MG TABLET PO SCH (08:53)
[2021-11-08] MEDS: PREDNISONE 10MG TABLET PO SCH (08:53)
[2021-11-08] MEDS: INSULIN GLARGINE UD 100 UNITS/ML SYR SUBCUT SCH (13:21)
[2021-11-08] MEDS ORDERED: LOSA50TA3 PO (15:31)
[2021-11-08] MEDS ORDERED: ALBU18HF2 IH (15:31)
[2021-11-08] MEDS ORDERED: HYDR100T26 PO (15:31)
[2021-11-08] MEDS ORDERED: DILT300C53 MT (15:31)
[2021-11-08 17:31] LABS: BG CARBOXYHEMOGLOBIN 0.4 % (0.5-1.5); BG DEOXYHEMOGLOBIN 23.2 % (0.0-5.0); BG FRACTION INSPIRED OXYGEN 21; BG HCO3 ACT 19.7 mmol/L (22.0-26.0); BG METHEMOGLOBIN 0.1 % (0.0-1.5); BG OXYGEN SATURATION 76.7 % (92.0-98.5); BG OXYHEMOGLOBIN 76.3 % (94.0-97.0); BG PCO2 35.3 mmHg (35.0-45.0); BG PH 7.365 (7.350-7.450); BG PO2 42.4 mmHg (75.0-100.0); BG SAMPLE SITE LEFT RADIAL; BG TOTAL HEMOGLOBIN 10.6 g/dL (12.0-18.0); BG VENT MODE ROOM AIR
== END 2021-11-08 18:22 | disposition home or self-care (01) | DRG 5 ==
LOC: ER 12:45 → MICUSO 13:54 → ENRESERV 08-24 05:18 → MICUSO 08-25 12:20 → 7WST 08-30 15:00 → 5EST 09-05 11:37 → CVICU 09-06 11:17 → 5EST 09-27 01:50
PROVIDERS: ADMIT Internal Medicine Nephrology; ATTEND Internal Medicine Nephrology
PROC: 05HY33Z Insertion of Infusion Device into Upper Vein, Percutaneous Approach (ICD-10-PCS; 2021-08-24)
PROC: B543ZZA Ultrasonography of Right Jugular Veins, Guidance (ICD-10-PCS; 2021-08-24)
PROC: 5A09357 Assistance with Respiratory Ventilation, Less than 24 Consecutive Hours, Continuous Positive Airway Pressure (ICD-10-PCS; 2021-08-24)
PROC: 5A09357 Assistance with Respiratory Ventilation, Less than 24 Consecutive Hours, Continuous Positive Airway Pressure (ICD-10-PCS; 2021-08-25)
PROC: 5A0935A Assistance with Respiratory Ventilation, Less than 24 Consecutive Hours, High Flow/Velocity Cannula (ICD-10-PCS; 2021-08-25)
PROC: 5A09457 Assistance with Respiratory Ventilation, 24-96 Consecutive Hours, Continuous Positive Airway Pressure (ICD-10-PCS; 2021-08-25)
PROC: 5A0945A Assistance with Respiratory Ventilation, 24-96 Consecutive Hours, High Flow/Velocity Cannula (ICD-10-PCS; 2021-08-29)
PROC: 5A0945A Assistance with Respiratory Ventilation, 24-96 Consecutive Hours, High Flow/Velocity Cannula (ICD-10-PCS; 2021-08-30)
PROC: 5A0935A Assistance with Respiratory Ventilation, Less than 24 Consecutive Hours, High Flow/Velocity Cannula (ICD-10-PCS; 2021-09-02)
PROC: 5A0935A Assistance with Respiratory Ventilation, Less than 24 Consecutive Hours, High Flow/Velocity Cannula (ICD-10-PCS; 2021-09-03)
PROC: 5A0935A Assistance with Respiratory Ventilation, Less than 24 Consecutive Hours, High Flow/Velocity Cannula (ICD-10-PCS; 2021-09-04)
PROC: 5A0935A Assistance with Respiratory Ventilation, Less than 24 Consecutive Hours, High Flow/Velocity Cannula (ICD-10-PCS; 2021-09-05)
PROC: 5A1955Z Respiratory Ventilation, Greater than 96 Consecutive Hours (ICD-10-PCS; principal; 2021-09-06)
PROC: 0BH17EZ Insertion of Endotracheal Airway into Trachea, Via Natural or Artificial Opening (ICD-10-PCS; 2021-09-06)
PROC: 02HV33Z Insertion of Infusion Device into Superior Vena Cava, Percutaneous Approach (ICD-10-PCS; 2021-09-06)
PROC: B548ZZA Ultrasonography of Superior Vena Cava, Guidance (ICD-10-PCS; 2021-09-06)
PROC: 5A0935A Assistance with Respiratory Ventilation, Less than 24 Consecutive Hours, High Flow/Velocity Cannula (ICD-10-PCS; 2021-09-06)
PROC: 5A09357 Assistance with Respiratory Ventilation, Less than 24 Consecutive Hours, Continuous Positive Airway Pressure (ICD-10-PCS; 2021-09-06)
PROC: 02HV33Z Insertion of Infusion Device into Superior Vena Cava, Percutaneous Approach (ICD-10-PCS; 2021-09-22)
PROC: B548ZZA Ultrasonography of Superior Vena Cava, Guidance (ICD-10-PCS; 2021-09-22)
PROC: 0B110F4 Bypass Trachea to Cutaneous with Tracheostomy Device, Open Approach (ICD-10-PCS; 2021-09-24)
PROC: 06HY33Z Insertion of Infusion Device into Lower Vein, Percutaneous Approach (ICD-10-PCS; 2021-09-25)
PROC: B54BZZA Ultrasonography of Right Lower Extremity Veins, Guidance (ICD-10-PCS; 2021-09-25)
PROC: 0DH63UZ Insertion of Feeding Device into Stomach, Percutaneous Approach (ICD-10-PCS; 2021-10-03)
PROC: 0JH63XZ Insertion of Tunneled Vascular Access Device into Chest Subcutaneous Tissue and Fascia, Percutaneous Approach (ICD-10-PCS; 2021-10-22)
PROC: 02HV33Z Insertion of Infusion Device into Superior Vena Cava, Percutaneous Approach (ICD-10-PCS; 2021-10-22)
PROC: B5181ZA Fluoroscopy of Superior Vena Cava using Low Osmolar Contrast, Guidance (ICD-10-PCS; 2021-10-22)
PROC: B548ZZA Ultrasonography of Superior Vena Cava, Guidance (ICD-10-PCS; 2021-10-22)
PROC: 30233N1 Transfusion of Nonautologous Red Blood Cells into Peripheral Vein, Percutaneous Approach (ICD-10-PCS; 2021-11-01)
DX: A41.89 Other specified sepsis (principal); J12.82 Pneumonia due to coronavirus disease 2019; G92.8 Other toxic encephalopathy; G82.50 Quadriplegia, unspecified; E43 Unspecified severe protein-calorie malnutrition; J96.21 Acute and chronic respiratory failure with hypoxia; U07.1 COVID-19; J98.2 Interstitial emphysema; A41.02 Sepsis due to Methicillin resistant Staphylococcus aureus; I50.33 Acute on chronic diastolic (congestive) heart failure; N17.9 Acute kidney failure, unspecified; I13.2 Hypertensive heart and chronic kidney disease with heart failure and with stage 5 chronic kidney disease, or end stage renal disease; N18.6 End stage renal disease; Z99.2 Dependence on renal dialysis; E11.22 Type 2 diabetes mellitus with diabetic chronic kidney disease; D64.9 Anemia, unspecified; E78.00 Pure hypercholesterolemia, unspecified; E78.5 Hyperlipidemia, unspecified; E87.1 Hypo-osmolality and hyponatremia; E87.8 Other disorders of electrolyte and fluid balance, not elsewhere classified; R77.8 Other specified abnormalities of plasma proteins; J93.9 Pneumothorax, unspecified; R65.20 Severe sepsis without septic shock; Z68.32 Body mass index [BMI] 32.0-32.9, adult; E87.5 Hyperkalemia; K29.70 Gastritis, unspecified, without bleeding; K44.9 Diaphragmatic hernia without obstruction or gangrene; R13.12 Dysphagia, oropharyngeal phase; M21.371 Foot drop, right foot; Z82.49 Family history of ischemic heart disease and other diseases of the circulatory system; Z93.1 Gastrostomy status; Z99.11 Dependence on respirator [ventilator] status; E11.65 Type 2 diabetes mellitus with hyperglycemia; R53.81 Other malaise; R26.9 Unspecified abnormalities of gait and mobility
CPT/HCPCS: 31500; 36415; 36556; 36558; 36600; 71045; 74018; 76937; 77001; 80048; 80053; 80202; 81003; 82270; 82330; 82375; 82607; 82728; 82746; 82805; 82962; 83036; 83540; 83550; 83605; 83615; 83735; 83880; 83970; 84100; 84134; 84145; 84478; 84484; 85014; 85018; 85025; 85027; 85044; 85049; 85384; 86140; 86705; 86706; 86709; 86803; 86850; 86900; 86920; 87015; 87045; 87070; 87077; 87106; 87186; 87340; 87426; 87427; 87449; 92610; 93005; 93306; 93970; 93971; 94002; 94003; 94640; 94660; 97110; 97163; 97166; 97530; 99152; 99153; 99291; A6261; C1725; C1750; C1752; C1769; C1892; C9113; C9803; J0330; J0360; J0456; J0610; J0690; J0692; J0696; J0885; J1100; J1200; J1642; J1644; J1650; J1815; J1940; J1956; J2060; J2185; J2250; J2270; J2543; J2704; J2765; J2920; J3010; J3370; J3480; J3490; J7030; J7040; J7042; J7050; J7060; J7512; J7608; P9016; U0003; U0005; A4315; G0500